=== PATIENT | female | born 1945 | race Two or more races ===

== ENCOUNTER 2016-07-06 06:34 | Inpatient (IN) | payer OTHER, MEDICAID ==
[2016-07-06] MEDS ORDERED: NS 1,000 ML IV ONE ×2 (06:52→23:10)
--- NOTE | 2016-07-06 07:07 | EDPHY ---
H & P Stated Complaint: diarrhea x 3 days Time Seen by Provider: 07/06/16 06:56 HPI/ROS: CHIEF COMPLAINT: Diarrhea x3 days, epigastric discomfort HISTORY OF PRESENT ILLNESS: The patient presents to the ED with a 3 day history of diarrhea. She does have a history of cirrhosis. She does take lactulose for encephalopathy. She states lactulose typically gives her 1 loose stool a day. She reports this pattern of diarrhea is much different with multiple frequent bouts of watery dark stool. She denies melena. She denies hematemesis. She denies vomiting. Patient does complain of moderate epigastric pain. Past surgical history is significant for appendicitis. The patient was recently admitted to the hospital for a upper GI bleed secondary to portal gastroscopy. The patient denies additional complaints of cough or congestion. She reports subjective fevers. REVIEW OF SYSTEMS: A comprehensive 10 point review of systems is otherwise negative aside from elements mentioned in the history of present illness. Source: Patient Exam Limitations: No limitations - Personal History Current Tetanus/Diphtheria Vaccine: Yes Tetanus Vaccine Date: 2014 - Medical/Surgical History Hx Asthma: No Hx Chronic Respiratory Disease: No Hx Diabetes: Yes Hx Cardiac Disease: Yes Hx Renal Disease: No Hx Cirrhosis: Yes Hx Alcoholism: No Hx HIV/AIDS: No Hx Splenectomy or Spleen Trauma: No Other PMH: HTN, disk surgeries, 2 hip surgeries, diabetes. cirrosis; anemia; UTIs. chronic pain - Social History Smoking Status: Never smoked - Physical Exam Exam: General Appearance: Obese female, no acute distress Eyes: Pupils equal and round no pallor or injection ENT, Mouth: Mucous membranes moist Respiratory: There are no retractions, lungs are clear to auscultation Cardiovascular: Regular rate and rhythm Gastrointestinal: Epigastric pain Rectal: Dark, semi melanotic stool Neurological: A&O, normal motor function, normal sensory exam, normal cranial nerves Skin: Warm and dry, no rashes Musculoskeletal: Neck is supple nontender Extremities: symmetrical, full range of motion Constitutional: Initial Vital Signs Temperature (C) 37.0 C 07/06/16 06:41 Heart Rate 105 H 07/06/16 06:41 Respiratory Rate 20 07/06/16 06:41 Blood Pressure 106/53 L 07/06/16 06:41 O2 Sat (%) 96 07/06/16 06:41 O2 Delivery Mode Room Air Allergies/Adverse Reactions: insulin regular [Insulin Regular] Allergy (Verified 07/06/16 06:40) TONGUE NUMBNESS Penicillins Allergy (Verified 07/06/16 06:40) Rash Home Medications: Medication Instructions Recorded glipiZIDE [Glipizide 10 MG (RX)] 10 mg PO DAILY18 11/02/11 Losartan Potassium [Cozaar] 100 mg PO DAILY 04/14/14 Pantoprazole Sodium [Protonix 40mg 40 mg PO BID #60 tab 04/17/14 (*)] Ferrous Sulfate [Ferrous Sulf 325 325 mg PO DAILY 08/13/15 MG (*)] Propranolol HCl [Inderal 10mg (*)] 10 mg PO BID 08/13/15 glipiZIDE [Glucotrol] 20 mg PO DAILYAC 08/13/15 Furosemide [Lasix 20 MG (*)] 20 mg PO DAILY #30 tab 02/25/16 Spironolactone [Aldactone 25 MG 25 mg PO DAILY #30 tab 02/25/16 (*)] Lactulose [Cephulac 20 gm/30 ml 20 gm PO DAILY 05/31/16 oral soln (*)] Simvastatin [Zocor] 80 mg PO DAILY18 05/31/16 Medical Decision Making ED Course/Re-evaluation: I reviewed the results of the patient's last hospitalization including the results of her endoscopy. The patient had an IV established. She received a L of normal saline. The patient did have an upper GI endoscopy done in the beginning of May which demonstrated diffuse gastritis as well as a single esophageal varcie which was treated with banding x2. The patient is noted to have an acute anemia with a hematocrit of 21.5. Her discharge hematocrit was closer to 27. Her rectal exam does demonstrate some melanotic stool. The patient is hemodynamically stable. The patient has been typed and crossed for 2 units of blood. Consultation is made with Dr. Palacio from Gastroenterology. The patient will be started on octreotide drip. The patient patient will be admitted to the step -down unit for urgent endoscopy, transfusion and an octreotide drip Consultation is made with Dr. Mitch Jimenez from the hospitalist service. Differential Diagnosis: Differential diagnosis considered includes upper GI bleed, lower GI bleed, critical anemia, hypovolemic shock, gastroenteritis, Critical Care Time: Critical care time exclusive of procedures and exclusive of the PA's time was 35 minutes, performed by myself, Ankit Walker MD. The patient presents to the emergency department with a critical anemia in the setting of a known varices will bleed. Emergent consultation was made with Gastroenterology as well as Internal Medicine. The patient will be admitted to the step-down unit for emergent endoscopy. The patient has been started on octreotide drip and stat blood products have been ordered. - Data Points Laboratory Results: Laboratory Results 07/06/16 07:20 07/06/16 07:20 07/06/16 07/06/16 07/06/16 10:15 08:45 07:55 WBC RBC Hgb Hct MCV MCH MCHC RDW Plt Count MPV Neut % (Auto) Lymph % (Auto) [place] % (Auto) Eos % (Auto) Baso % (Auto) Nucleat RBC Rel Count Absolute Neuts (auto) Absolute Lymphs (auto) Absolute Monos (auto) Absolute Eos (auto) Absolute Basos (auto) Absolute Nucleated RBC Immature Gran % Immature Gran # PT INR APTT Sodium Potassium Chloride Carbon Dioxide Anion Gap BUN Creatinine Estimated GFR Glucose Calcium Total Bilirubin Conjugated Bilirubin Unconjugated Bilirubin AST ALT Alkaline Phosphatase Total Protein Albumin Stool Occult Bld Scrn Cancelled C. difficile Tox (PCR) NEGATIVE (NEGATIVE) Patient ABO/Rh O POSITIVE Antibody Screen NEGATIVE Crossmatch IS Only See Detail 07/06/16 07:20 WBC 7.05 10^3/uL (3.80-9.50) RBC 2.25 L 10^6/uL (4.18-5.33) Hgb 7.0 L g/dL (12.6-16.3) Hct 21.2 L % (38.0-47.0) MCV 94.2 fL (81.5-99.8) MCH 31.1 pg (27.9-34.1) MCHC 33.0 g/dL (32.4-36.7) RDW 16.1 H % (11.5-15.2) Plt Count 123 L 10^3/uL (150-400) MPV 11.9 H fL (8.7-11.7) Neut % (Auto) 65.4 % (39.3-74.2) Lymph % (Auto) 24.5 % (15.0-45.0) [place] % (Auto) 7.9 % (4.5-13.0) Eos % (Auto) 1.4 % (0.6-7.6) Baso % (Auto) 0.4 % (0.3-1.7) Nucleat RBC Rel Count 0.0 % (0.0-0.2) Absolute Neuts (auto) 4.60 10^3/uL (1.70-6.50) Absolute Lymphs (auto) 1.73 10^3/uL (1.00-3.00) Absolute Monos (auto) 0.56 10^3/uL (0.30-0.80) Absolute Eos (auto) 0.10 10^3/uL (0.03-0.40) Absolute Basos (auto) 0.03 10^3/uL (0.02-0.10) Absolute Nucleated RBC 0.00 10^3/uL (0-0.01) Immature Gran % 0.4 % (0.0-1.1) Immature Gran # 0.03 10^3/uL (0.00-0.10) PT 16.5 H SEC (12.0-15.0) INR 1.33 H (0.83-1.16) APTT 26.1 SEC (23.0-38.0) Sodium 136 mEq/L (134-144) Potassium 5.7 H mEq/L (3.5-5.2) Chloride 104 mEq/L (97-110) Carbon Dioxide 21 L mEq/l (22-31) Anion Gap 11 mEq/L (8-16) BUN 60 H mg/dL (7-23) Creatinine 0.9 mg/dL (0.6-1.0) Estimated GFR > 60 Glucose 207 H mg/dL (70-100) Calcium 8.5 mg/dL (8.5-10.4) Total Bilirubin 1.9 H mg/dL (0.1-1.4) Conjugated Bilirubin 0.3 mg/dL (0.0-0.5) Unconjugated Bilirubin 1.6 H mg/dL (0.0-1.1) AST 34 IU/L (14-46) ALT 41 IU/L (9-52) Alkaline Phosphatase 270 H IU/L (38-126) Total Protein 5.9 L g/dL (6.3-8.2) Albumin 2.7 L g/dL (3.5-5.0) Stool Occult Bld Scrn C. difficile Tox (PCR) Patient ABO/Rh Antibody Screen Crossmatch IS Only Medications Given: Discontinued Medications Sodium Chloride (Ns) 1,000 mls @ 0 mls/hr IV ONCE ONE PRN Reason: Wide Open Stop: 07/06/16 06:53 Last Admin: 07/06/16 07:57 Dose: 1,000 mls Morphine Sulfate (Morphine) 2 mg IVP EDNOW ONE Stop: 07/06/16 08:33 Last Admin: 07/06/16 08:46 Dose: 2 mg Pantoprazole Sodium (Protonix) 40 mg IVP EDNOW ONE Stop: 07/06/16 10:59 Last Admin: 07/06/16 12:05 Dose: 40 mg Departure - Departure Disposition: [facility] Inpatient Acute Clinical Impression: Cirrhosis, Upper GI bleed, Anemia, Diarrhea Condition: Critical
[2016-07-06 07:40] LABS: % IMMATURE GRANULYOCYTES 0.4 % (0.0-1.1); ABSOLUTE IMMATURE GRANULOCYTES 0.03 10^3/uL (0.00-0.10); ADD DIFF? NO; ADD MORPH? NO; ADD SCAN? NO; ATYPICAL LYMPHOCYTE FLAG 0 (0-99); FRAGMENT RBC FLAG 0 (0-99); HEMATOCRIT 21.2 % (38.0-47.0); LEFT SHIFT FLG 0 (0-99); LIPEMIA HEMOLYSIS FLAG 80 (0-99); MEAN CELL HEMOGLOBIN 31.1 pg (27.9-34.1); MEAN CELL VOLUME 94.2 fL (81.5-99.8); MEAN PLATELET VOLUME 11.9 fL (8.7-11.7); PLATELET CLUMPS FLAG 10 (0-99); PLATELET COUNT 123 10^3/uL (150-400); RED BLOOD CELL COUNT 2.25 10^6/uL (4.18-5.33); RED CELL DISTRIBUTION WIDTH 16.1 % (11.5-15.2)
[2016-07-06 07:49] LABS: APTT 26.1 SEC (23.0-38.0); INR 1.33 (0.83-1.16); PROTIME(PATIENT) 16.5 SEC (12.0-15.0)
[2016-07-06 07:52] LABS: ALANINE AMINOTRANSFERASE 41 IU/L (9-52); ALBUMIN 2.7 g/dL (3.5-5.0); ALKALINE PHOSPHATASE 270 IU/L (38-126); ANION GAP 11 mEq/L (8-16); ASPARTATE AMINOTRANSFERASE 34 IU/L (14-46); BILIRUBIN,TOTAL 1.9 mg/dL (0.1-1.4); BILIRUBIN-CONJUGATED 0.3 mg/dL (0.0-0.5); BILIRUBIN-UNCONJUGATED 1.6 mg/dL (0.0-1.1); CALCIUM 8.5 mg/dL (8.5-10.4); CARBON DIOXIDE 21 mEq/l (22-31); CHLORIDE 104 mEq/L (97-110); CREATININE 0.9 mg/dL (0.6-1.0); GLOMERULAR FILTRATION RATE > 60; GLUCOSE 207 mg/dL (70-100); POTASSIUM 5.7 mEq/L (3.5-5.2); SODIUM 136 mEq/L (134-144); TOTAL PROTEIN 5.9 g/dL (6.3-8.2)
[2016-07-06] MEDS ORDERED: PANTOPRAZOLE SODIUM 40 MG VIAL IVP ONE (10:58)
[2016-07-06] MEDS ORDERED: OCTREOTIDE ACETATE 500 MCG in D5W 50 ML IV SCH (11:00)
[2016-07-06] MEDS ORDERED: ALTEPLASE 2 MG VIAL IVP PRN (11:07)
[2016-07-06] MEDS ORDERED: SUCCINYLCHOLINE CHLORIDE*ANESTHESIA ONLY*200 MG/10 ML SYR IVP ONE ×2 (14:41→15:06)
[2016-07-06] MEDS ORDERED: PHENYLEPHRINE HCL 100 MCG/ML SYR ONE (15:06)
--- NOTE | 2016-07-06 15:21 | GPN ---
[f rep st] PROCEDURE NOTE PROCEDURE: Esophagogastroduodenoscopy. INDICATION: Melena and posthemorrhagic anemia in a patient with known varices and cryptogenic cirrhosis, and history of peptic ulcer disease. PREOPERATIVE DIAGNOSIS: Rule out varicele bleed. POSTOP DIAGNOSES: 1. Trace varix in the esophagus, which is not a bleeding lesion, previous area of endoscopic variceal banding was noted. 2. Small gastric ulcerations in the antrum. 3. Portal hypertensive gastropathy. 4. Large superficial duodenal ulcerations, which are almost certainly the source of the gastrointestinal blood loss. No visible vessel or other stigmata for treatment. INFORMED CONSENT: I had a detailed discussion with the patient via lead electrician regarding the procedure, alternatives, benefits, and risks including bleeding, perforation, infection, risk of medication. Informed consent was signed and witnessed. COMPLICATIONS: None immediate. MEDICATIONS: General anesthesia as per Dr. Falcon PROCEDURE REPORT: After adequate general anesthesia, patient was moved into the left lateral decubitus position. The forward viewing upper endoscope was passed in the oropharynx and advanced under direct visualization down the esophagus. There was a small amount of blood in the oropharynx from intubation and a small moderate trauma. The proximal and midesophageal mucosa was normal. There were trace varices in the distal middle and distal third of the esophagus. A previous area of endoscopic banding was noted. There was no evidence of varicocele bleed. The endoscope was advanced into the stomach. Retroflex examination was performed. There were no gastric varices. The endoscope was un-retroflexed. There was portal hypertensive gastropathy in the distal body and antrum. There were 2 small antral ulcers that were without stigmata of active bleeding. The endoscope was advanced into the duodenal bulb. In the duodenal bulb and sweep were multiple shallow, large ulcerations. Photographs were obtained. There was no area of visible vessel or adherent clot. These were quite superficial and seemed to be healing already. I withdrew the endoscope back into the stomach, reexamined the stomach, reexamined the esophagus, and then advanced back into the duodenum to look at these areas again to make sure there was no bleeding. There was no bleeding during the exam. There was a small amount of heme in the stomach but otherwise , there was no blood loss. The endoscope was then completely withdrawn, confirming the above findings. The patient tolerated the procedure well and was transferred to recovery in satisfactory condition. IMPRESSION: 1. Trace varices, not source of bleeding. 2. Small antral gastric ulcers. 3. Portal hypertensive gastropathy with a tiny bit of blood in the stomach. 4. Large superficial duodenal ulcerations, almost certainly the location of the gastrointestinal bleed. RECOMMENDATIONS: 1. PPI IV b.i.d., can change to p.o. once she is tolerating p.o. well. 2. Clear liquid diet for now. 3. Serial H and Hs as per hospitalist. 4. Transfuse as per hospitalist. 5. The patient probably needs a stepdown bed for now if available. I expect that she will be in the hospital for another 24-48 hours pending her clinical course. 6. Will check H pylori antibody. If positive, will treat for eradication. 7. Patient will need long-term PPI therapy in order to decrease ulcer recurrence. 8. I will also inquire with my staff to see Xifaxan is on the Medicaid formulary. Xifaxan 550 mg p.o. b.i.d. would be a much preferred treatment to lactulose for encephalopathy. The patient tolerated it better and it is a better medication overall. If it is too expensive, will continue the lactulose. 9. Further recommendations to follow results of above and clinical course. Thank you for allowing me to participate in this patient's healthcare. Do not hesitate to call me with any questions. /[id number]/MODL MTDD
[2016-07-06] MEDS ORDERED: ONDANSETRON 4 MG/2 ML VIAL IVP PRN (16:16)
--- NOTE | 2016-07-06 16:19 | IR ---
Imaging-Guided Peripherally Inserted Central Catheter History: GI bleeding. Prophylactic Antibiotic: Cefazolin was not ordered and administered for antimicrobial prophylaxis be cause it was not medically necessary for this procedure. VTE Prophylaxis: There is not an order for VTE prophylaxis to be given within 24 hours after procedu re end time because it was not medically necessary for this procedure. Crosscutting Measure: Patient's current list of medications including all known prescriptions, over- the-counters, herbals, and vitamin/mineral/dietary supplements are reviewed. Medications' name, dosa ge, frequency, and route of administration are confirmed. Technique: Following informed consent, the right arm was prepped and draped in sterile fashion. 1% Xy locaine was used for local anesthetic. All elements of maximal sterile barrier technique including cap, mask, sterile gown, sterile gloves, large sterile sheet, hand hygiene, and 2% chlorhexidine for cutaneous antisepsis, followed. Ultrasound evaluation of potential access site was performed. After successfully identifying a patent vessel, ultrasound guidance was used to puncture the vein. A permanent recording was created for the patient's record. Ultrasound transducer was placed in sterile sleeve and used for real-time imaging guidance over steri le gel to enter the basilic vein. 0.018 measuring wire was passed centrally under fluoroscopic contro l. A skin estefania with scalpel blade was followed by removing the access needle. A 5 Tajik peel-away sh eath was followed by a 5 [place] double-lumen central catheter, trimmed to 41 cm length. The tip of t he catheter was positioned centrally and the guidewire removed. A single fluoroscopic spot image was obtained in inspiration. The hub of the catheter was fixed to the skin using a sterile StatLock adhes denise device, and a sterile dressing was applied. The catheter was irrigated. Findings: The tip of the central catheter terminates at the junction of the superior vena cava and th e right atrium. Fluoroscopy: 0.5 minutes, one images Impression: 5 [place] double lumen peripherally inserted central catheter is ready to use.
--- NOTE | 2016-07-06 16:25 | PDGENHP ---
History and Physical History and Physical: HISTORY AND PHYSICAL ADMISSION NOTE CC: Rectal bleeding with melenic stool HISTORY: This patient with known advanced cirrhosis and esophageal varices and portal gastropathy was here last month with significant GI bleeding requiring transfusions. She had a single esophageal varix that was felt to be moderate risk and was clipped. She was felt of blood from the portal gastropathy. She was otherwise treated conservatively and did well. Several days ago she started noticing darker stools and frequent loose stools with some bloating in the abdomen. There is no abdominal pain fever nausea or vomiting. She has had no changes in her medications. She is taking a beta arsalan chronically and has been taking that medicine. She denies chest pain anginal like symptoms shortness of breath lightheadedness stroke-like symptoms. She is not having bleeding or bruising in any other body part. ROS: Otherwise 10 system review of systems is performed and unrevealing PAST MEDICAL HISTORY: -Advanced cirrhosis, cryptogenic -upper GI bleed from portal gastropathy -esophageal varices status post banding -hepatic encephalopathy -chronic iron deficiency anemia -Diabetes mellitus type 2 -hysterectomy FAMILY MEDICAL HISTORY: She is not aware of any significant medical illnesses in her family SOCIAL HISTORY: No alcohol or tobacco use MEDICATIONS: These are reviewed by the pharmacist and reconciled in the electronic record and I have reviewed the list and ordered appropriate medicines. Most of her medicines are held at this time due to GI bleeding PHYSICAL EXAMINATION: Vital Signs: Stable without fever Extractor Puller: Sinus rhythm in the ER Examination: General: alert, oriented, good mentation, relaxed Skin: warm, dry, good color, no rash HEENT: normal Neck: no mass or jvd Resps: relaxed Lungs: clear breath sounds Heart: regular, no murmur Abdomen: soft, nondistended, nontender, +BS, no mass Upper Extremities: normal Lower Extremities: no edema, warm No Bleeding or bruising Neurologic: normal speech/language, normal marketing project coordinator, no focal weakness IV site: looks normal LABORATORY DATA: Hemoglobin 21 down from most recent 27 last month despite ongoing iron therapy ASSESSMENT: DIAGNOSES: # UPPER GI BLEED # RECENT UP UPPER GI BLEED FROM PORTAL GASTROPATHY, A SINGLE VARIX WAS NOTED IN THE ESOPHAGUS THAT AT THAT TIME WAS ONLY MODERATE RISK AND WAS CLIPPED # ACUTE POST HEMORRHAGIC ANEMIA ON TOP OF CHRONIC IRON DEFICIENCY ANEMIA # CRYPTOGENIC CIRRHOSIS, ADVANCED #TYPE 2 DIABETES MELLITUS ON ORAL THERAPY PLANS: -The patient will be going to the endoscopy suite today with Dr. Caba to assess the cause of bleeding and which treatments are indicated, as well as the risk for ongoing bleeding -Packed red blood cells been ordered for transfusion in the ER which is appropriate given her level of anemia and ongoing bleeding -She is started on octreotide drip and proton pump inhibitor drip at this time -NPO -follow hemodynamics and hemoglobin very closely -DVT prophylaxis will be mechanical only due to bleeding I have reviewed the patient's case in detail with Dr. Tyrell Walker and Dr. Mick Palacio I have reviewed the patient's past medical records as part of this assessment, including
[2016-07-06] MEDS ORDERED: NS 1,000 ML IV SCH (16:30)
--- NOTE | 2016-07-06 17:22 | POSTOPPROG ---
Post Op Note Date of Operation: 07/06/16 Surgeon: Mick Palacio Anesthesiologist: Ezekiel Anesthesia: GET(General Endotracheal) Pre-op Diagnosis: ugi bleed hx esoph varices Post-op Diagnosis: trace varices not bleeding, antral ulcefs, DU's whihc are bleeding source b Indication: melena, post hemorrhagic anemia Procedure: EGD Findings: trace varices, antral ulcers duodenal ulcers Inf/Abcess present in the surg proc area at time of surgery?: No EBL: Minimal (few ml) Complications: none immediate Specimen(s): none
--- NOTE | 2016-07-06 17:24 | SOAPPROG ---
SOARABELLA Progress Note Assessment/Plan: Assessment:Plan: see full dictated EGD trace varices antral ulcers large superficial duodenal ulcers multiple -0 i think these are bleeding sites NO ACTIVE BLEEDING on exam PPI BID stop octreotide post this IV bag check H/H, serial H/H clear liquid diet abx given cirrhosis and UGI bleed 07/06/16 17:22 Objective: Vital Signs Temp Pulse Resp BP Pulse Ox 37.1 C 100 23 H 102/86 H 100 07/06/16 14:52 07/06/16 17:19 07/06/16 17:19 07/06/16 17:19 07/06/16 17:19 07/05/16 07/06/16 07/07/16 05:59 05:59 05:59 Intake Total 1600 Output Total 0 Balance 1600 PT 16.5 SEC (12.0-15.0) H 07/06/16 07:20 INR 1.33 (0.83-1.16) H 07/06/16 07:20 ICD10 Worksheet Patient Problems: Problems Problem Status Diagnosed Altered mental status Acute Anemia Acute Cirrhosis Acute Dehydration Acute Diabetes Acute Diarrhea Acute Encephalopathy Acute Hematemesis Acute Hepatic encephalopathy Acute Upper GI bleed Acute
[2016-07-06] MEDS: glipiZIDE 10 MG TAB PO SCH (17:52)
[2016-07-06] MEDS: CIPROFLOXACIN 500 MG TAB PO SCH ×2 (17:54→20:50)
[2016-07-06 18:03] LABS: HEMATOCRIT 21.8 % (38.0-47.0); HEMOGLOBIN 7.1 g/dL (12.6-16.3)
--- NOTE | 2016-07-06 20:17 | GCON ---
[f rep st] CONSULTATION REQUESTING PHYSICIAN: Maik Walker M.D. INDICATION FOR CONSULTATION: Melena, posthemorrhagic anemia, elevated BUN and creatinine consistent with upper GI bleed. HPI: Mrs. Molina is a pleasant 70-year-old female with a past medical history significant for cryptogenic cirrhosis, hepatic encephalopathy, iron deficiency anemia with small bowel ectasias, portal gastropathy, type 2 diabetes, hypertension, pancytopenia, who is noted to have an esophageal varix on EGD on June 01. She was in usual state of health at home until 3 days ago when she started to have some diarrhea. Today, the diarrhea became very black, which she recognized as an upper GI bleed. It was a little dark before, but not melenic. She does take iron. She thought it might be related to the iron. She presented to the emergency room and was noted to have melenic stools , elevated BUN/creatinine ratio and post hemorrhagic anemia. She is being admitted for presumed upper GI bleed. I am called to help, evaluate and treat in that regard. She denies any chest pain. She has some mild nausea. Had some pain with the loose stools this morning. Crampy lower abdominal pain. Denies diaphoresis, dysphagia or early satiety. She is compliant with her medications. She is not taking any aspirin or anti-inflammatory drugs. PAST MEDICAL HISTORY: Cryptogenic cirrhosis, encephalopathy, cytopenias. She never had any ascites noted on ultrasounds. Endoscopy in May 2016 revealed esophageal varix. In June 2015, she had only trace varices. She did have portal hypertensive gastropathy and capsule endoscopy reportedly showed vascular ectasias in her small bowel. She had a history of hepatic encephalopathy, iron deficiency anemia, portal gastropathy, type 2 diabetes, hypertension, pancytopenia. SURGERIES: Include multiple hernia repairs, up to 7 and hip repair x2. MEDICATIONS: At home include glipizide 10 mg daily, Losartan 100 mg daily, Protonix 40 mg , propranolol 10 mg twice daily, glipizide 20 mg daily, iron 325 mg daily, Lasix 20 mg daily, spironolactone 25 mg daily, Zocor 80 mg daily, lactulose 20 mg daily. In hospital, her only medications thus far, she received IV Protonix in the ER, morphine in the ER, and octreotide drip is going. ALLERGIES: To insulin and penicillin. Penicillin causes facial swelling and insulin causes fainting, probably hypoglycemia. PAST SOCIAL HISTORY: She does not smoke, does not drink. FAMILY HISTORY: Negative for liver disease. No colon cancer. REVIEW OF SYSTEMS: A complete 10 review of systems was done and is negative other than noted in the HPI. PHYSICAL EXAM: Well-developed, well-nourished, elderly female sitting in her bed. No acute distress. Blood pressure is 100/49, pulse is 110, respirations are 16, she is 96% on room air, temperature is 36.9. EYES: Mild icterus. JUVE. EOMI. MOUTH: No lesions. NECK: Supple. BACK: No spine tenderness. No CVA tenderness. LUNGS: Clear. CARDIAC: S1, S2, tachycardic, regular rhythm. No murmurs, rubs appreciated. ABDOMEN: Bowel sounds are normal in pitch and frequency, soft, nontender. Difficult to assess hepatosplenomegaly due to body habitus. EXTREMITIES: No cyanosis, clubbing, or edema. NEUROLOGIC : Cranial nerves intact. Nonfocal. SKIN: No rashes. LABORATORY DATA: From today at 7:20 a.m., sodium 136, potassium 5.7, chloride 104, bicarb 21, BUN 60, creatinine 0.9, glucose 207, calcium 8.5, total protein 1.9, AST 34, ALT 41, alkaline phosphatase 270, total protein 5.9, albumin 2.7. ProTime 16.5, INR 1.33, PTT 26.1. WBC 7.05, hemoglobin 7.0, hematocrit 21.2, platelet count 123. C. diff. is negative. Previous hemoglobin hematocrit from June 03 was 8.6 and 26. Prior to her bleed in January was 8.7 and 27.8. BUN on June 03 was 16, creatinine 0.7. EGD performed on June 01, 2016 revealed a single column of 2+ varices, a slight red farshad sign and 1+ varix at the GE junction. The 3 columns compressed with insufflation. No active bleeding. Midesophageal varix with signs of likely recent bleeding s/p bands x2. Diffuse portal hypertensive gastropathy that was oozing, likely contributing to her bleeding, although this is not amenable to endoscopic therapy. A colonoscopy on April 14, 2014 was normal with nonbleeding hemorrhoids. An EGD on April 14, 2014 showed 1 cm clean based antral ulcers. Biopsies were positive for H. pylori. ASSESSMENT: Upper gastrointestinal bleed with melena, decreased hemoglobin and hematocrit, elevated BUN and creatinine in a patient with cryptogenic cirrhosis and known varices as well as portal hypertensive gastropathy. RECOMMENDATIONS: 1. Transfuse PRBCs as per hospitalist. 2. Octreotide drip was already done in the emergency room. 3. Urgent EGD with anesthesia for presumed upper GI bleed in this patient with possible varicocele bleeding. 4. Pending results of EGD may cover for 7 days with antibiotics as patients with cirrhosis and upper GI bleeds have increased risk of infections, not only just SBP. 5. The patient will need correction beta-arsalan therapy. 6. Treatment of hepatic encephalopathy is much better with Xifaxan 550 mg p.o. twice daily. If it is too expensive or not available on formulary, then lactulose can be continued. 7. Further recommendations to follow results of above and clinical course. Given the patient's multiple medical issues, cirrhosis, acute GI blood loss, this will be a higher risk procedure than normal. Anesthesia will be present to administer the sedation. They may choose to intubate the patient secondary to the upper GI bleed. Thank you for allowing me to participate in this patient's healthcare. Do not hesitate to call me with questions. /[id number]/MODL MTDD
[2016-07-06] MEDS: PANTOPRAZOLE SODIUM 40 MG in NS 100 ML IV SCH (20:55)
[2016-07-06] MEDS ORDERED: CEPACOL LOZENGE PO PRN (21:12)
[2016-07-06 22:45] LABS: HEMATOCRIT 18.7 % (38.0-47.0)
[2016-07-06 22:51] LABS: HEMOGLOBIN 6.3 g/dL (12.6-16.3)
[2016-07-07 02:25] LABS: % IMMATURE GRANULYOCYTES 0.3 % (0.0-1.1); ABSOLUTE IMMATURE GRANULOCYTES 0.01 10^3/uL (0.00-0.10); ADD DIFF? NO; ADD MORPH? NO; ADD SCAN? NO; ATYPICAL LYMPHOCYTE FLAG 20 (0-99); FRAGMENT RBC FLAG 0 (0-99); HEMATOCRIT 22.7 % (38.0-47.0); HEMOGLOBIN 7.6 g/dL (12.6-16.3); LEFT SHIFT FLG 0 (0-99); LIPEMIA HEMOLYSIS FLAG 80 (0-99); MEAN CELL HEMOGLOBIN 31.1 pg (27.9-34.1); MEAN CELL HEMOGLOBIN CONCENTR. 33.5 g/dL (32.4-36.7); MEAN PLATELET VOLUME 11.2 fL (8.7-11.7); PLATELET CLUMPS FLAG 10 (0-99); PLATELET COUNT 73 10^3/uL (150-400); RED BLOOD CELL COUNT 2.44 10^6/uL (4.18-5.33); RED CELL DISTRIBUTION WIDTH 15.9 % (11.5-15.2)
[2016-07-07 02:34] LABS: INR 1.44 (0.83-1.16); PROTIME(PATIENT) 17.5 SEC (12.0-15.0)
[2016-07-07 02:35] LABS: ANION GAP 6 mEq/L (8-16); CALCIUM 7.5 mg/dL (8.5-10.4); CARBON DIOXIDE 21 mEq/l (22-31); CHLORIDE 110 mEq/L (97-110); CREATININE 0.8 mg/dL (0.6-1.0); GLOMERULAR FILTRATION RATE > 60; GLUCOSE 184 mg/dL (70-100); POTASSIUM 5.1 mEq/L (3.5-5.2); SODIUM 137 mEq/L (134-144)
--- NOTE | 2016-07-07 07:48 | SOAPPROG ---
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 Hb 7.0 -- 2 units - Hb 7.1 -- Hb 6.3 -- 1 unit -- Hb 7.6 7) Dispo - if stable, can go to floor, I might like to watch another night in hospital pending her course today 8) ID - pt's with cirrhosis and UGI bleed from any source have high risk of infection (UTI, SBP, Resp infections) and should get one week of abx, since allergic to PCN on PO Cipro 07/07/16 07:51 Subjective: CC- UGI bleed from DU's she is doing well this am, no n/v, no melena, no pain did need another PRBC overnight, I think from equilibration as she had an acute GI bleed Objective: Vital Signs Temp Pulse Resp BP Pulse Ox 36.9 C 80 11 L 91/33 L 100 07/07/16 01:42 07/07/16 05:40 07/07/16 05:40 07/07/16 05:40 07/07/16 05:40 Laboratory Results 07/07/16 02:10 07/07/16 02:10 07/06/16 07/07/16 07/08/16 05:59 05:59 05:59 Intake Total 4525 Output Total 650 350 Balance 3875 -350 PT 17.5 SEC (12.0-15.0) H 07/07/16 02:10 INR 1.44 (0.83-1.16) H 07/07/16 02:10 A+Ox3 CTA S1S2, RRR +BS, soft NT Laboratory Tests 07/06/16 07/06/16 07/06/16 07:20 17:50 22:35 Hgb 7.0 L 7.1 L 6.3 L Hct 21.2 L 21.8 L 18.7 L PT INR 07/07/16 02:10 Hgb 7.6 L Hct 22.7 L PT 17.5 H INR 1.44 H Laboratory Tests 07/06/16 07/07/16 07:20 02:10 BUN 60 H 45 H Creatinine 0.9 0.8 ICD10 Worksheet Patient Problems: Problems Problem Status Diagnosed Altered mental status Acute Anemia Acute Cirrhosis Acute Dehydration Acute Diabetes Acute Diarrhea Acute Encephalopathy Acute Hematemesis Acute Hepatic encephalopathy Acute Upper GI bleed Acute
[2016-07-07] MEDS ORDERED: LACTULOSE 20 GM/30 ML UDCUP PO SCH (09:00)
[2016-07-07] MEDS: PANTOPRAZOLE SODIUM 40 MG in NS 100 ML IV SCH ×2 (09:41→19:59)
[2016-07-07] MEDS: RIFAXIMIN 550 MG TAB PO SCH ×2 (09:41→19:58)
[2016-07-07] MEDS: glipiZIDE 10 MG TAB PO SCH ×2 (10:00→18:10)
[2016-07-07] MEDS: CIPROFLOXACIN 500 MG TAB PO SCH ×2 (10:10→19:59)
--- NOTE | 2016-07-07 12:01 | HOSPPROG ---
Hospitalist Progress Note Assessment/Plan: DIAGNOSIS: # ACUTE UPPER GI BLEED # LARGE DUODENAL ULCERS # ACUTE POST HEMORRHAGIC ANEMIA, S/P TRANSFUSION (3 UNITS), ON CHRONIC FE DEFIC ANEMIA # S/P CLIPPING OF MOD ESOPH VARIX LAST MONTH, CURRENTLY LOW RISK # ADVANCED CIRRHOSIS # DIABETES MELLITUS, STABLE I reviewed in detail with Dr Palacio today. She does not have evidence of current active bleed today, but remains severely anemic after 3 U rbc. Will need to watch here for at least another day, and will need close outpt f/u PLANS: -continue PPI, indefintely -will give IV iron now, continue po at home -continue prophylactic meds for liver dz -no anticoag at present due to bleed SUBJECTIVE: No abdominal pain, nausea, vomiting Has noticed no further bleeding No angina or shortness of breath or stroke-like symptoms OBJECTIVE Vitals reviewed: Blood pressure is a bit borderline but pulse and respiratory rate are normal, no fever residential monitor: On my review there is sinus rhythm without arrhythmia Exam: alert oriented skin warm dry color ok resps not labored lungs clear BSs heart regular abd soft nondistended nontender, bowel sounds present limbs warm, no edema iv site ok Laboratory data: Remains severely anemic despite 3 units of transfused red cells hemoglobin 7 though not decreasing further Objective: Vital Signs Temp Pulse Resp BP Pulse Ox 36.8 C 87 17 96/42 L 96 07/07/16 07:58 07/07/16 07:58 07/07/16 07:58 07/07/16 07:58 07/07/16 07:58 Laboratory Results 07/07/16 02:10 07/07/16 02:10 07/06/16 07/07/16 07/08/16 06:59 06:59 06:59 Intake Total 4525 Output Total 1000 300 Balance 3525 -300 PT 17.5 SEC (12.0-15.0) H 07/07/16 02:10 INR 1.44 (0.83-1.16) H 07/07/16 02:10 ICD10 Worksheet Patient Problems: Problems Problem Status Diagnosed Altered mental status Acute Anemia Acute Cirrhosis Acute Dehydration Acute Diabetes Acute Diarrhea Acute Encephalopathy Acute Hematemesis Acute Hepatic encephalopathy Acute Upper GI bleed Acute
[2016-07-07] MEDS: SODIUM FERRIC GLUCONAT/SUCROSE 125 MG in NS 100 ML IV SCH (12:15)
[2016-07-07 12:27] LABS: HEMATOCRIT 23.4 % (38.0-47.0); HEMOGLOBIN 7.7 g/dL (12.6-16.3)
[2016-07-08 05:41] LABS: % IMMATURE GRANULYOCYTES 0.5 % (0.0-1.1); ABSOLUTE IMMATURE GRANULOCYTES 0.01 10^3/uL (0.00-0.10); ADD DIFF? NO; ADD MORPH? NO; ADD SCAN? NO; ATYPICAL LYMPHOCYTE FLAG 0 (0-99); FRAGMENT RBC FLAG 0 (0-99); HEMATOCRIT 21.4 % (38.0-47.0); HEMOGLOBIN 7.2 g/dL (12.6-16.3); LEFT SHIFT FLG 0 (0-99); LIPEMIA HEMOLYSIS FLAG 80 (0-99); MEAN CELL HEMOGLOBIN CONCENTR. 33.6 g/dL (32.4-36.7); MEAN CELL VOLUME 92.2 fL (81.5-99.8); MEAN PLATELET VOLUME 10.8 fL (8.7-11.7); PLATELET CLUMPS FLAG 0 (0-99); PLATELET COUNT 67 10^3/uL (150-400); RED BLOOD CELL COUNT 2.32 10^6/uL (4.18-5.33); RED CELL DISTRIBUTION WIDTH 16.3 % (11.5-15.2)
[2016-07-08 08:10] VITALS: RESP 18
[2016-07-08] MEDS: CIPROFLOXACIN 500 MG TAB PO SCH (09:15)
[2016-07-08] MEDS: RIFAXIMIN 550 MG TAB PO SCH (09:15)
[2016-07-08] MEDS: SODIUM FERRIC GLUCONAT/SUCROSE 125 MG in NS 100 ML IV SCH (09:16)
[2016-07-08] MEDS: glipiZIDE 10 MG TAB PO SCH (10:23)
[2016-07-08] MEDS ORDERED: PANTOPRAZOLE SODIUM 40 MG TAB PO SCH (11:30)
[2016-07-08] MEDS: PANTOPRAZOLE SODIUM 40 MG in NS 100 ML IV SCH (11:32)
--- NOTE | 2016-07-08 11:47 | SOAPPROG ---
[facility] Progress Note Assessment/Plan: Assessment: 1. GI BLEED - secondary to ulcer - on PPI - no further bleeding, but H/H continue to be low - tolerating po, and hopeful yo go home soon 2. ESLD - complicated by varices, volume overload, and encephalopathy - no evidence of decompensation currently Plan: 1. GI BLEED - ok to change to po ppi - check stool h.pylori ag to confirm ulcers not infection related - follow H/H - advance diet - consider dc home today or tomorrow, pending course of H/H and patient's symptoms - may take some time for H/H to improve - finish Fe replacement - would continue PPI PO BID x 12 weeks, then QD lifelong 2. ESLD - ok to resume outpt ESLD meds - will need outpt f/u (I will arrange) - will sign off, call with questions 07/08/16 11:44 Subjective: CC: no further melena S: feels hungry feels strong enough to go home no nausea no vomiting Objective: Vital Signs Temp Pulse Resp BP Pulse Ox 36.8 C 82 18 126/52 H 99 07/08/16 08:00 07/08/16 08:00 07/08/16 08:00 07/08/16 08:00 07/08/16 08:00 Laboratory Results 07/08/16 05:30 07/07/16 02:10 07/07/16 07/08/16 07/09/16 05:59 05:59 05:59 Intake Total 4525 3462 Output Total 650 2775 Balance 3875 687 PT 17.5 SEC (12.0-15.0) H 07/07/16 02:10 INR 1.44 (0.83-1.16) H 07/07/16 02:10 Laboratory Tests 07/06/16 07/06/16 07/06/16 07:20 07:55 17:50 WBC RBC Hgb 7.0 L 7.1 L Hct 21.2 L 21.8 L PT INR C. difficile Tox (PCR) NEGATIVE 07/06/16 07/07/16 07/07/16 22:35 02:10 12:00 WBC 3.82 RBC 2.44 L Hgb 6.3 L 7.6 L 7.7 L Hct 18.7 L 22.7 L 23.4 L PT 17.5 H INR 1.44 H C. difficile Tox (PCR) 07/08/16 05:30 WBC 2.08 L RBC 2.32 L Hgb 7.2 L Hct 21.4 L PT INR C. difficile Tox (PCR) Physical Exam - Physical Exam General Appearance: alert, no apparent distress EENT: PERRL/EOMI Respiratory: lungs clear Cardiac/Chest: normal peripheral pulses Abdomen: normal bowel sounds Skin: normal color Neuro/Psych: no motor/sensory deficits ICD10 Worksheet Patient Problems: Problems Problem Status Diagnosed Altered mental status Acute Anemia Acute Cirrhosis Acute Dehydration Acute Diabetes Acute Diarrhea Acute Encephalopathy Acute Hematemesis Acute Hepatic encephalopathy Acute Upper GI bleed Acute
[2016-07-08 13:38] LABS: HEMATOCRIT 24.6 % (38.0-47.0)
[2016-07-08 17:02] VITALS: BP 127/50; PULSE 86; TEMP 98.6; O2SAT 98
--- NOTE | 2016-07-08 17:17 | PDDCSUM ---
Discharge Summary Discharge Summary: DISCHARGE SUMMARY NOTE DISCHARGE DIAGNOSES: -ACUTE UPPER GI BLEED -LARGE DUODENAL ULCERS CAUSE OF UPPER GI BLEED -SEVERE POST HEMORRHAGIC ANEMIA, REQUIRING TRANSFUSION OF 3 UNITS OF PACKED RED BLOOD CELLS -PREVIOUSLY NOTED ESOPHAGEAL VARIX STATUS POST PREVIOUS CLIPPING IN STABLE CONDITION, LOW RISK AT THIS TIME -ADVANCED CIRRHOSIS WITH VARICES, ASCITES -PRE-EXISTING CHRONIC IRON DEFICIENCY ANEMIA CONSULTANTS: DR. NEREIDA CABRAL PROCEDURES: ESOPHAGOGASTRODUODENOSCOPY HOSPITAL COURSE SUMMARY: This patient came into the hospital with acute upper GI bleeding with melenic stools and lightheadedness and was found to have a hemoglobin of 6. She has known ascites with an esophageal varices and portal gastropathy. She was treated here with a GI bleed from portal gastropathy last months and her 1 varix was banded at that time. At this time on endoscopy showed large duodenal ulcers which were felt to be the cause of her bleeding. Her esophageal varix looks stable. She remained hemodynamically stable after initial resuscitation. She did receive 3 units of red cells in transfusion without complications. At this time she is to be continued on iron replacement therapy, proton pump inhibitor therapy twice daily, diuretics and lactulose. She is stable for discharge to home. She has been eating well walking in the hallway has no more bleeding no abdominal pain no fevers stable vital signs normal abdominal exam MEDICATION CHANGES: Addition of iron therapy FOLLOW-UP PLAN: DR. MACHUCA IS ARRANGING FOLLOW-UP AT THE [facility] FOR HER Greater than 35 minutes bedside and care coordination time today
== END 2016-07-08 17:57 | disposition home or self-care (01) | DRG 378 ==
LOC: F2N 16:14 → F1N 07-08 08:41
PROVIDERS: ADMIT Internal Medicine; ATTEND Internal Medicine
PROC: 02HV33Z Insertion of Infusion Device into Superior Vena Cava, Percutaneous Approach (ICD-10-PCS; 2016-07-06)
PROC: 30233N1 Transfusion of Nonautologous Red Blood Cells into Peripheral Vein, Percutaneous Approach (ICD-10-PCS; 2016-07-06)
PROC: 0DJ08ZZ Inspection of Upper Intestinal Tract, Via Natural or Artificial Opening Endoscopic (ICD-10-PCS; principal; 2016-07-06 14:00)
DX: K26.4 Chronic or unspecified duodenal ulcer with hemorrhage (principal); D62 Acute posthemorrhagic anemia; D50.9 Iron deficiency anemia, unspecified; K25.9 Gastric ulcer, unspecified as acute or chronic, without hemorrhage or perforation; K31.89 Other diseases of stomach and duodenum; K72.90 Hepatic failure, unspecified without coma; K74.60 Unspecified cirrhosis of liver; I10 Essential (primary) hypertension; E11.9 Type 2 diabetes mellitus without complications; Z87.440 Personal history of urinary (tract) infections
CPT/HCPCS: 96374; 97161-GP; C1751; G8978-GP-CI; G8979-GP-CI; G8980-GP-CI; J0171; J0330; J2353; J2370; J2916; P9016

== ENCOUNTER → 2016-10-09 | Outpatient (CLI) | payer OTHER, MEDICAID ==
[~2016-10-09] MED LIST: IOPAMIDOL (ISOVUE-300) 100 ML BTL IV ONE
[2016-10-09 11:04] LABS: CREATININE 0.8 mg/dL (0.6-1.0); GLOMERULAR FILTRATION RATE > 60
== END ==
LOC: FIMAGING 10:09
PROVIDERS: ATTEND Physician Assistant
DX: K74.69 Other cirrhosis of liver (principal); K76.6 Portal hypertension; K80.20 Calculus of gallbladder without cholecystitis without obstruction; S32.040A Wedge compression fracture of fourth lumbar vertebra, initial encounter for closed fracture
CPT/HCPCS: 74170; Q9967

== ENCOUNTER 2016-10-25 19:46 | Emergency (ER) | payer OTHER, MEDICAID ==
[2016-10-25 19:54] VITALS: BP 138/48
--- NOTE | 2016-10-25 20:15 | EDPHY ---
H & P Stated Complaint: hyperglycemia - Personal History Current Tetanus/Diphtheria Vaccine: Yes Current Tetanus Diphtheria and Acellular Pertussis (TDAP): Yes Tetanus Vaccine Date: 2014 - Medical/Surgical History Hx Asthma: No Hx Chronic Respiratory Disease: No Hx Diabetes: Yes Hx Cardiac Disease: Yes Hx Renal Disease: No Hx Cirrhosis: Yes Hx Alcoholism: No Hx HIV/AIDS: No Hx Splenectomy or Spleen Trauma: No Other PMH: HTN, disk surgeries, 2 hip surgeries, diabetes. cirrosis; anemia; UTIs. chronic pain - Social History Smoking Status: Never smoked Time Seen by Provider: 10/25/16 19:58 HPI/ROS: Chief Complaint: High blood sugar HPI: 71-year-old female with a history of type 2 diabetes on glipizide. Lantus. Patient took her blood sugar this morning at 9:30 a.m. was 313. This afternoon at 4:50 p.m. it read high. At 6:30 p.m. at read 559. Patient called her primary care physician at [facility] was told to come the emergency department for blood sugar control. 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 Family states that the patient is not consistent about when she takes her Lantus. Yesterday she took it a 30 morning. She did not take until 530 this afternoon. Denies any recent illness. No fevers or chills. No urinary symptoms. No nausea or vomiting. No chest pain or shortness of breath. ROS: 10 point Review of Systems is negative except as noted in the HPI. PMH: Diabetes Social History: No smoking, no alcohol, no recreational drug use Family History: non-contributory Physical Exam: Gen: Awake, Alert, No Distress HEENT: Nose: no rhinorrhea Eyes: PERRLA, EOMI Mouth: Moist mucosa Neck: Supple, no JVD Chest: nontender, lungs clear to auscultation Heart: S1, S2 normal, no murmur Abd: Soft, non-tender, no guarding Back: no CVA tenderness, no midline tenderness Ext: no edema, non-tender Skin: no rash Neuro: CN II-XII intact, Sensation grossly intact, Strength 5/5 in bilateral upper and lower extremities (Mick Roberts) Constitutional: Initial Vital Signs Temperature (C) 36.6 C 10/25/16 19:52 Heart Rate 97 10/25/16 19:52 Respiratory Rate 16 10/25/16 19:52 Blood Pressure 138/48 H 10/25/16 19:52 O2 Sat (%) 100 10/25/16 19:52 O2 Delivery Mode Room Air Allergies/Adverse Reactions: insulin regular [Insulin Regular] Allergy (Verified 07/06/16 06:40) TONGUE NUMBNESS Penicillins Allergy (Verified 07/06/16 06:40) Rash Home Medications: Medication Instructions Recorded glipiZIDE [Glipizide 10 MG (RX)] 10 mg PO DAILY18 11/02/11 Losartan Potassium [Cozaar] 100 mg PO DAILY 04/14/14 Ferrous Sulfate [Ferrous Sulf 325 325 mg PO DAILY 08/13/15 MG (*)] Propranolol HCl [Inderal 10mg (*)] 10 mg PO BID 08/13/15 glipiZIDE [Glucotrol] 20 mg PO DAILYAC 08/13/15 Furosemide [Lasix 20 MG (*)] 20 mg PO DAILY #30 tab 02/25/16 Spironolactone [Aldactone 25 MG 25 mg PO DAILY #30 tab 02/25/16 (*)] Lactulose [Cephulac 20 gm/30 ml 20 gm PO DAILY 05/31/16 oral soln (*)] Simvastatin [Zocor] 80 mg PO DAILY18 05/31/16 Ferrous Sulfate 325 mg PO DAILY #60 tablet. 07/08/16 Pantoprazole Sodium [Protonix 40mg 40 mg PO BID #60 tab 07/08/16 (*)] Medical Decision Making ED Course/Re-evaluation: 11:25 p.m.- I received sign-out on this patient by Dr. Roberts at change of shift at approximately 11:00 p.m.. She has finished her 2 L bolus of IV fluids. Her repeat blood sugar is 377 down from the high 500s. She is feeling well, and denies any complaints. There are no signs or symptoms of DKA. I feel she can be discharged safely from the emergency room. I have stressed the importance of taking her Lantus regularly. She will be discharged with her son. I have asked that she follow up with [facility] in the next 1-2 days. ( Flory Romo) - Data Points Laboratory Results: Laboratory Results 10/25/16 20:10 10/25/16 10/25/16 10/25/16 23:04 21:05 20:10 POC Hgb 9.9 gm/dL L gm/dL (12.3-15.9) POC Hct 29 % L % (35.5-47.5) POC Sodium 142 mEq/L mEq/L (134-144) Sodium 133 mEq/L L mEq/L (134-144) POC Potassium 4.3 mEq/L mEq/L (3.3-5.0) Potassium 4.7 mEq/L mEq/L (3.5-5.2) POC Chloride 108 mEq/L mEq/L (96-108) Chloride 104 mEq/L mEq/L (97-110) Carbon Dioxide 21 mEq/l L mEq/l (22-31) Anion Gap 8 mEq/L mEq/L (8-16) POC BUN 19 mg/dL mg/dL (7-23) BUN 21 mg/dL mg/dL (7-23) Creatinine 0.7 mg/dL mg/dL (0.6-1.0) POC Creatinine 0.6 mg/dL mg/dL (0.6-1.2) Estimated GFR > 60 Glucose 589 mg/dL H* mg/dL (70-100) POC Glucose 377 mg/dL H mg/dL (70-100) Calcium 9.1 mg/dL mg/dL (8.5-10.4) Urine Color YELLOW Urine Appearance CLEAR Urine pH 6.0 (5.0-7.5) Ur Specific [place] 1.026 (1.002-1.030) Urine Protein NEGATIVE (NEGATIVE) Urine Ketones NEGATIVE (NEGATIVE) Urine Blood 2+ H (NEGATIVE) Urine Nitrate NEGATIVE (NEGATIVE) Urine Bilirubin NEGATIVE (NEGATIVE) Urine Urobilinogen NEGATIVE EU EU (0.2-1.0) Ur Leukocyte Esterase NEGATIVE (NEGATIVE) Urine RBC 5-10 /hpf H /hpf (0-3) Urine WBC 1-3 /hpf /hpf (0-3) Ur Epithelial Cells TRACE /lpf /lpf (NONE-1+) Urine Bacteria TRACE /hpf H /hpf (NONE SEEN) Urine Glucose 3+ H (NEGATIVE) Medications Given: Discontinued Medications Sodium Chloride (Ns) 1,000 mls @ 0 mls/hr IV ONCE ONE PRN Reason: Wide Open Stop: 10/25/16 20:18 Last Admin: 10/25/16 20:18 Dose: 1,000 mls Sodium Chloride (Ns) 1,000 mls @ 0 mls/hr IV ONCE ONE PRN Reason: Wide Open Stop: 10/25/16 21:18 Last Admin: 10/25/16 22:32 Dose: 1,000 mls Point of Care Test Results: 10/25/16 23:04 POC Sodium 142 POC Potassium 4.3 POC Chloride 108 POC BUN 19 POC Creatinine 0.6 POC Glucose 377 H Departure - Departure Disposition: Home, Routine, Self-Care Clinical Impression: Dehydration, Hyperglycemia Condition: Good Instructions: Managing Diabetes During Sick Days (ED), Diabetic Hyperglycemia ( ED) Additional Instructions: Make sure to take your insulin injection at the same time every day. Drink plenty of fluids. Follow up with her primary care doctor in 1-2 days for re-evaluation. Return emergency department for fevers, chills, cough, nausea, vomiting, high blood sugars which are not coming down, or any other concerns. Referrals: Edith Clark MD [Primary Care Provider] - As per Instructions Print Language: Hebrew
[2016-10-25] MEDS ORDERED: NS 1,000 ML IV ONE ×2 (20:17→21:17)
[2016-10-25 20:40] LABS: ANION GAP 8 mEq/L (8-16); CALCIUM 9.1 mg/dL (8.5-10.4); CARBON DIOXIDE 21 mEq/l (22-31); CHLORIDE 104 mEq/L (97-110); CREATININE 0.7 mg/dL (0.6-1.0); GLOMERULAR FILTRATION RATE > 60; POTASSIUM 4.7 mEq/L (3.5-5.2); SODIUM 133 mEq/L (134-144)
[2016-10-25 20:42] LABS: GLUCOSE 589 mg/dL (70-100)
[2016-10-25 21:19] LABS: COLOR YELLOW; LEUKOCYTE ESTERASE,URINE NEGATIVE (NEGATIVE); NITRITE,URINE NEGATIVE (NEGATIVE)
[2016-10-25 21:25] LABS: BACTERIA TRACE /hpf (NONE SEEN)
[2016-10-25 23:39] VITALS: PULSE 98; RESP 20; TEMP 97; O2SAT 96
[2016-10-26] MEDS ORDERED: glipiZIDE 5 MG TAB PO ONE (23:01)
== END 2016-10-25 23:40 | disposition home or self-care (01) ==
DX: E11.65 Type 2 diabetes mellitus with hyperglycemia (principal); E86.0 Dehydration; I10 Essential (primary) hypertension
CPT/HCPCS: 82947-QW

== ENCOUNTER 2016-11-24 10:21 | Inpatient (IN) | payer OTHER, MEDICAID ==
[2016-11-24 11:22] LABS: % IMMATURE GRANULYOCYTES 0.5 % (0.0-1.1); ABSOLUTE IMMATURE GRANULOCYTES 0.01 10^3/uL (0.00-0.10); ADD DIFF? NO; ADD MORPH? NO; ADD SCAN? NO; ATYPICAL LYMPHOCYTE FLAG 0 (0-99); FRAGMENT RBC FLAG 0 (0-99); HEMOGLOBIN 10.5 g/dL (12.6-16.3); LEFT SHIFT FLG 10 (0-99); LIPEMIA HEMOLYSIS FLAG 90 (0-99); MEAN CELL HEMOGLOBIN CONCENTR. 33.9 g/dL (32.4-36.7); MEAN CELL VOLUME 97.5 fL (81.5-99.8); MEAN PLATELET VOLUME 11.7 fL (8.7-11.7); PLATELET CLUMPS FLAG 0 (0-99); PLATELET COUNT 70 10^3/uL (150-400); RED BLOOD CELL COUNT 3.18 10^6/uL (4.18-5.33); RED CELL DISTRIBUTION WIDTH 16.1 % (11.5-15.2)
[2016-11-24 11:29] LABS: ALANINE AMINOTRANSFERASE 66 IU/L (9-52); ALBUMIN 3.2 g/dL (3.5-5.0); ALKALINE PHOSPHATASE 612 IU/L (38-126); ASPARTATE AMINOTRANSFERASE 58 IU/L (14-46); BILIRUBIN,TOTAL 2.6 mg/dL (0.1-1.4); BILIRUBIN-CONJUGATED 0.7 mg/dL (0.0-0.5); BILIRUBIN-UNCONJUGATED 1.9 mg/dL (0.0-1.1); CALCIUM 9.1 mg/dL (8.5-10.4); CARBON DIOXIDE 22 mEq/l (22-31); CHLORIDE 106 mEq/L (97-110); CREATININE 0.9 mg/dL (0.6-1.0); GLOMERULAR FILTRATION RATE > 60; GLUCOSE 221 mg/dL (70-100); SODIUM 135 mEq/L (134-144)
[2016-11-24 11:31] LABS: INR 1.18 (0.83-1.16)
[2016-11-24 11:32] LABS: APTT 27.1 SEC (23.0-38.0)
--- NOTE | 2016-11-24 11:34 | CPEKG ---
Heart Rate: 80 RR Interval: 750 P-R Interval: 152 QRSD Interval: 84 QT Interval: 412 QTC Interval: 476 P [place]: 47 QRS [place]: -19 T Wave [place]: 14 EKG Severity - OTHERWISE NORMAL ECG - EKG Impression: SINUS RHYTHM EKG Impression: BORDERLINE LEFT AXIS DEVIATION Electronically Signed By: Sincree Alexander 24-Nov-2016 15:38:06
[2016-11-24 11:40] LABS: TROPONIN I < 0.012 ng/mL (0-0.034)
--- NOTE | 2016-11-24 11:49 | EDPHY ---
HPI/HX/ROS/PE/MDM Narrative: CHIEF COMPLAINT: Somnolence, weak HPI: The patient is a Gabonese-speaking 71 y/o female arriving with her family due to progressive somnolence and weakness onset last night. She has a history that includes upper GI bleeds, hepatic encephalopathy, diabetes, and advanced cirrhosis. Her family reports last night she started to appear sleepy and weak. This morning, she was somnolent, didn't speak much, and was too weak to walk. Her family says these are the exact same symptoms as prior episodes of hyperammonemia. She does take Lactulose and her family denies any missed doses of any of her medications. Family denies fever, vomiting, blood in stool, recent trauma, or recent illness. History obtained via law clerk. REVIEW OF SYSTEMS: Aside from elements discussed in the HPI, a comprehensive 10-point review of systems was reviewed and is negative. 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 SOCIAL HISTORY: Family at bedside is Gabonese speaking. No alcohol or tobacco use. PHYSICAL EXAM: General:Patient is somnolent, in no acute distress. ENT: Mild scleral icterus, otherwise eyes are normal to inspection. ENT inspection normal. Neck: Normal inspection. Full range of motion. Respiratory:No respiratory distress. Breath sounds normal bilaterally. Cardiovascular: Regular rate and rhythm. Strong peripheral pulses. Normal cap refill. Abdomen:The abdomen is nontender to palpation. There are no peritoneal signs. Back: Normal to inspection. No tenderness to palpation. Skin: Normal color. No rash. Warm and dry. Extremities: 1+ pedal edema bilaterally. Otherwise normal appearance. Full range of motion. Neuro: Oriented x1. Normal motor function. Normal sensory function. Asterixis. ED Course: IV established. Labs drawn including CBC, CHEM, LFTs, ammonia, troponin, PTPTT. UA ordered. Patient placed on director of cardiac cath lab. The 12 lead EKG was interpreted by myself. See hard copy and/or "tracemaster" electronic copy for interpretation. Ammonia elevated at 106. Patient will be admitted to Dr. Johnson, hospitalist, for hepatic encephalopathy. MDM: This patient presents with AMS in setting of known hepatic encephalopathy. I see no signs of UTI or acute sepsis. She requires further workup and treatment for this condition. - Data Points Laboratory Results: Laboratory Results 11/24/16 10:11 11/24/16 10:11 11/24/16 11/24/16 11/24/16 12:35 11:01 10:11 WBC RBC Hgb Hct MCV MCH MCHC RDW Plt Count MPV Neut % (Auto) Lymph % (Auto) [place] % (Auto) Eos % (Auto) Baso % (Auto) Nucleat RBC Rel Count Absolute Neuts (auto) Absolute Lymphs (auto) Absolute Monos (auto) Absolute Eos (auto) Absolute Basos (auto) Absolute Nucleated RBC Immature Gran % Immature Gran # PT INR APTT Sodium 135 mEq/L mEq/L (134-144) Potassium 5.1 mEq/L mEq/L (3.5-5.2) Chloride 106 mEq/L mEq/L (97-110) Carbon Dioxide 22 mEq/l mEq/l (22-31) Anion Gap 7 mEq/L L mEq/L (8-16) BUN 28 mg/dL H mg/dL (7-23) Creatinine 0.9 mg/dL mg/dL (0.6-1.0) Estimated GFR > 60 Glucose 221 mg/dL H mg/dL (70-100) Calcium 9.1 mg/dL mg/dL (8.5-10.4) Total Bilirubin 2.6 mg/dL H mg/dL (0.1-1.4) Conjugated Bilirubin 0.7 mg/dL H mg/dL (0.0-0.5) Unconjugated Bilirubin 1.9 mg/dL H mg/dL (0.0-1.1) AST 58 IU/L H IU/L (14-46) ALT 66 IU/L H IU/L (9-52) Alkaline Phosphatase 612 IU/L H IU/L (38-126) Ammonia 106.0 uMOL/L H uMOL/L (9.0-30.0) Troponin I < 0.012 ng/mL ng/mL (0-0.034) Total Protein 7.0 g/dL g/dL (6.3-8.2) Albumin 3.2 g/dL L g/dL (3.5-5.0) Urine Color YELLOW Urine Appearance CLEAR Urine pH 6.0 (5.0-7.5) Ur Specific [place] 1.012 (1.002-1.030) Urine Protein NEGATIVE (NEGATIVE) Urine Ketones NEGATIVE (NEGATIVE) Urine Blood 1+ H (NEGATIVE) Urine Nitrate NEGATIVE (NEGATIVE) Urine Bilirubin NEGATIVE (NEGATIVE) Urine Urobilinogen NEGATIVE EU EU (0.2-1.0) Ur Leukocyte Esterase NEGATIVE (NEGATIVE) Urine RBC 5-10 /hpf H /hpf (0-3) Urine WBC 1-3 /hpf /hpf (0-3) Ur Epithelial Cells TRACE /lpf /lpf (NONE-1+) Hyaline Casts 5-15 /lpf /lpf (0-1) Urine Mucus TRACE /lpf /lpf (NONE-1+) Urine Glucose NEGATIVE (NEGATIVE) 11/24/16 11/24/16 10:11 10:11 WBC 2.08 10^3/uL L 10^3/uL (3.80-9.50) RBC 3.18 10^6/uL L 10^6/uL (4.18-5.33) Hgb 10.5 g/dL L g/dL (12.6-16.3) Hct 31.0 % L % (38.0-47.0) MCV 97.5 fL fL (81.5-99.8) MCH 33.0 pg pg (27.9-34.1) MCHC 33.9 g/dL g/dL (32.4-36.7) RDW 16.1 % H % (11.5-15.2) Plt Count 70 10^3/uL L 10^3/uL (150-400) MPV 11.7 fL fL (8.7-11.7) Neut % (Auto) 63.4 % % (39.3-74.2) Lymph % (Auto) 24.5 % % (15.0-45.0) [place]al[place] % (Auto) 8.2 % % (4.5-13.0) Eos % (Auto) 2.9 % % (0.6-7.6) Baso % (Auto) 0.5 % % (0.3-1.7) Nucleat RBC Rel Count 0.0 % % (0.0-0.2) Absolute Neuts (auto) 1.32 10^3/uL L 10^3/uL (1.70-6.50) Absolute Lymphs (auto) 0.51 10^3/uL L 10^3/uL (1.00-3.00) Absolute Monos (auto) 0.17 10^3/uL L 10^3/uL (0.30-0.80) Absolute Eos (auto) 0.06 10^3/uL 10^3/uL (0.03-0.40) Absolute Basos (auto) 0.01 10^3/uL L 10^3/uL (0.02-0.10) Absolute Nucleated RBC 0.00 10^3/uL 10^3/uL (0-0.01) Immature Gran % 0.5 % % (0.0-1.1) Immature Gran # 0.01 10^3/uL 10^3/uL (0.00-0.10) PT 15.0 SEC SEC (12.0-15.0) INR 1.18 H (0.83-1.16) APTT 27.1 SEC SEC (23.0-38.0) Sodium Potassium Chloride Carbon Dioxide Anion Gap BUN Creatinine Estimated GFR Glucose Calcium Total Bilirubin Conjugated Bilirubin Unconjugated Bilirubin AST ALT Alkaline Phosphatase Ammonia Troponin I Total Protein Albumin Urine Color Urine Appearance Urine pH Ur Specific [place] Urine Protein Urine Ketones Urine Blood Urine Nitrate Urine Bilirubin Urine Urobilinogen Ur Leukocyte Esterase Urine RBC Urine WBC Ur Epithelial Cells Hyaline Casts Urine Mucus Urine Glucose General Time Seen by Provider: 11/24/16 10:55 Initial Vital Signs: Initial Vital Signs Temperature (C) 36.8 C 11/24/16 10:23 Heart Rate 96 11/24/16 10:23 Respiratory Rate 18 11/24/16 10:23 Blood Pressure 111/71 11/24/16 10:23 O2 Sat (%) 100 11/24/16 10:23 O2 Delivery Mode Room Air Allergies/Adverse Reactions: insulin regular [Insulin Regular] Allergy (Verified 07/06/16 06:40) TONGUE NUMBNESS Penicillins Allergy (Verified 07/06/16 06:40) Rash Home Medications: Medication Instructions Recorded Ferrous Sulfate [Ferrous Sulf 325 325 mg PO DAILY 08/13/15 MG (*)] Furosemide [Lasix 20 MG (*)] 20 mg PO DAILY #30 tab 02/25/16 Spironolactone [Aldactone 25 MG 25 mg PO DAILY #30 tab 02/25/16 (*)] Simvastatin [Zocor] 80 mg PO DAILY18 05/31/16 Pantoprazole Sodium [Protonix 40mg 40 mg PO BID #60 tab 07/08/16 (*)] Insulin Detemir [Levemir] 35 unit SQ HS 11/24/16 Losartan Potassium [Cozaar 50 mg 50 mg PO DAILY 11/24/16 (*)] Rifaximin [Xifaxan] 550 mg PO BID 11/24/16 glipiZIDE [Glipizide] 5 mg PO BIDMEAL 11/24/16 Departure - Departure Disposition: [facility] Inpatient Acute Clinical Impression: Hepatic encephalopathy Altered mental status Qualifiers: Altered mental status type: somnolence Qualified Code(s): R40.0 - Somnolence Condition: Fair Report Scribed for: Sincere Alexander Report Scribed by: Carie Candelaria Date of Report: 11/24/16 Time of Report: 10:57
[2016-11-24 11:51] LABS: ANION GAP 7 mEq/L (8-16); POTASSIUM 5.1 mEq/L (3.5-5.2)
[2016-11-24 12:41] LABS: COLOR YELLOW; LEUKOCYTE ESTERASE,URINE NEGATIVE (NEGATIVE); NITRITE,URINE NEGATIVE (NEGATIVE)
[2016-11-24 12:47] LABS: MUCUS TRACE /lpf (NONE-1+)
[2016-11-24] MEDS ORDERED: ONDANSETRON 4 MG/2 ML VIAL IVP PRN (13:37)
[2016-11-24] MEDS ORDERED: ACETAMINOPHEN 325 MG TAB PO PRN (13:37)
[2016-11-24] MEDS ORDERED: ONDANSETRON DISINTEGRATING 4 MG TAB PO PRN (13:37)
[2016-11-24] MEDS: LACTULOSE 20 GM/30 ML UDCUP PO SCH ×2 (14:22→21:50)
[2016-11-24] MEDS ORDERED: LACTULOSE 20 GM/30 ML UDCUP PO SCH (16:00)
[2016-11-24] MEDS ORDERED: D50W 25 GM/50 ML SYR IVP PRN (16:33)
--- NOTE | 2016-11-24 16:52 | GHP ---
[f rep st] HISTORY AND PHYSICAL DATE OF ADMISSION: 11/24/2016 CHIEF COMPLAINT: Lethargy and confusion. HISTORY OF PRESENT ILLNESS: This is a 71-year-old female with a history of advanced cryptogenic cir rhosis who presents after family found her this morning appearing more confused and lethargic. The p atient apparently was in her normal state of health in the several days preceding her hospitalizatio n. Denies any chest pain, shortness of breath, cough, subjective fevers, chills, is describing some dysuria. Denies any diarrhea or hematuria. Denies worsening lower extremity edema, known sick contac ts or rashes. PAST MEDICAL HISTORY: A 71-year-old female with a history of: 1. Advance cryptogenic cirrhosis. 2. Esophageal varices, status post banding. 3. Portal hypertensive gastropathy, status post GI bleed. 4. Hepatic encephalopathy. 5. Chronic iron deficiency anemia. 6. Diabetes, type 2. SOCIAL HISTORY: Negative for tobacco, alcohol or illicit drugs. FAMILY HISTORY: Negative for any known liver disease. ADVANCED DIRECTIVES: The patient wishes to be full cor, full tube. Her family is her medical decis ionmaker. REVIEW OF SYSTEMS: A 10-point review of systems is negative with the exception of that reported in the HPI. PHYSICAL EXAMINATION: VITAL SIGNS: Blood pressure is 115/52, heart rate 82, respiratory rate 16, 9 9% on room air, temperature 36.9. GENERAL: This is an obese-appearing, pleasant 71-year-old female. HEENT: Notable for dry mucous membranes. Eyes: Negative for any icterus. CARDIAC: Patient is re gular rate and rhythm. PULMONARY: She has good respiratory effort, is clear to auscultation bilate rally. GASTROINTESTINAL: Obese. Positive bowel sounds. Soft and nontender in all 4 quadrants. MU SCULOSKELETAL: Negative for any lower extremity edema. SKIN: Negative for any rashes. NEUROLOGIC: Patient has asterixis on examination, is alert and oriented x2. PSYCHIATRIC: She is pleasant and donor relations coordinator perative on interview and examination. LABORATORY DATA: White count 2.08, hematocrit 31.0, platelet count of 70. Creatinine is 0.9. Sodi um 135, total bilirubin 2.6, AST 58, AST 66. An EKG which I personally reviewed and interpreted, sh ows sinus rhythm, leftward axis deviation, T-wave inversion in V1. No acute ST-T changes. ASSESSMENT AND PLAN: This is a 71-year-old female presenting with acute confusion. 1. Acute encephalopathy, hepatic in etiology. Patient has asterixis on examination. After discussi on with the family, it sounds as if they may have been avoiding lactulose therapy because of the sug ar content, not wanting to upset her diabetes. We will rule out occult infections with checking a ur inalysis but will treat with scheduled three times daily lactulose overnight until we have improved stooling. I suspect this is it will require for improvement in her encephalopathy. 2. Advanced cryptogenic cirrhosis. We will continue her outpatient medications. 3. Diabetes. We will continue the patient's Levemir and glipizide medication. 4. History of hepatic gastropathy. We will continue the patient's proton pump inhibitor. 5. Hepatic encephalopathy. We will increase lactulose intake as described above and continue Rifax imin. 6. Hyperlipidemia. We will continue her statin therapy. 7. Prophylaxis. Will hold until we are confident the patient is not bleeding. 8. Diet: Low salt. 9. Disposition: Expect greater than 2 midnights as the patient is cirrhotic, presenting with hepati c encephalopathy requiring treatment and monitoring. I discussed the case with the emergency room ph ysician. The patient will be triaged to the medical-surgical floor for care. /[id number]/MODL
[2016-11-24] MEDS ORDERED: NON-FORMULARY NEW DRUG (Simvastatin [Zocor] 80 MG) PO SCH (18:00)
[2016-11-24] MEDS: ATORVASTATIN CALCIUM 40 MG TAB PO SCH (18:24)
[2016-11-24] MEDS: glipiZIDE 5 MG TAB PO SCH (18:24)
[2016-11-24] MEDS: INSULIN LISPRO 100 UNIT/ML SC SCH (18:25)
[2016-11-24] MEDS ORDERED: INSULIN GLARGINE 100 UNITS/ML SYRINGE SC SCH (21:00)
[2016-11-24] MEDS: PANTOPRAZOLE SODIUM 40 MG TAB PO SCH (21:50)
[2016-11-24] MEDS: RIFAXIMIN 550 MG TAB PO SCH (21:50)
[2016-11-25 05:25] LABS: ADD DIFF? NO; ADD MORPH? NO; ADD SCAN? NO; ATYPICAL LYMPHOCYTE FLAG 10 (0-99); FRAGMENT RBC FLAG 0 (0-99); HEMATOCRIT 27.4 % (38.0-47.0); HEMOGLOBIN 9.2 g/dL (12.6-16.3); LEFT SHIFT FLG 0 (0-99); LIPEMIA HEMOLYSIS FLAG 80 (0-99); MEAN CELL HEMOGLOBIN 33.1 pg (27.9-34.1); MEAN CELL HEMOGLOBIN CONCENTR. 33.6 g/dL (32.4-36.7); MEAN CELL VOLUME 98.6 fL (81.5-99.8); MEAN PLATELET VOLUME 11.5 fL (8.7-11.7); PLATELET CLUMPS FLAG 0 (0-99); PLATELET COUNT 63 10^3/uL (150-400); RED BLOOD CELL COUNT 2.78 10^6/uL (4.18-5.33); RED CELL DISTRIBUTION WIDTH 16.2 % (11.5-15.2)
[2016-11-25 05:39] LABS: ANION GAP 6 mEq/L (8-16); CALCIUM 8.9 mg/dL (8.5-10.4); CARBON DIOXIDE 20 mEq/l (22-31); CHLORIDE 111 mEq/L (97-110); CREATININE 0.8 mg/dL (0.6-1.0); GLOMERULAR FILTRATION RATE > 60; GLUCOSE 255 mg/dL (70-100); POTASSIUM 4.7 mEq/L (3.5-5.2); SODIUM 137 mEq/L (134-144)
[2016-11-25] MEDS: glipiZIDE 5 MG TAB PO SCH ×2 (09:41→17:14)
[2016-11-25] MEDS: LACTULOSE 20 GM/30 ML UDCUP PO SCH ×3 (09:41→21:49)
[2016-11-25] MEDS: RIFAXIMIN 550 MG TAB PO SCH ×2 (09:41→21:49)
[2016-11-25] MEDS: INSULIN LISPRO 100 UNIT/ML SC SCH ×3 (09:42→17:14)
[2016-11-25] MEDS: PANTOPRAZOLE SODIUM 40 MG TAB PO SCH ×2 (09:42→21:49)
[2016-11-25] MEDS: FERROUS SULFATE 325 MG TAB PO SCH (09:42)
[2016-11-25] MEDS ORDERED: INSULIN GLARGINE 100 UNITS/ML SYRINGE SC SCH (14:11)
--- NOTE | 2016-11-25 14:15 | HOSPPROG ---
Hospitalist Progress Note Assessment/Plan: # acute hepatic encephalopathy- patient still with asterixis on exam- no clear exacerbating factor identified beyond medication noncompliance with lactulose oxygen saturations 95% on room air - continue scheduled lactulose three times daily - continue rifaximin - continue monitoring # diabetes mellitus- uncontrolled- insulins re-reconciled patient typically takes a daytime dose of long-acting insulin as well- blood sugars in the 200s to 250s overnight - will start daytime insulin tomorrow - continue HS dosing Lantus # chronic iron-deficiency anemia- EKG(personally reviewed and interpreted) no acute changes- Hgb 9 - continue PPI # hypertension- have held the patient's ARB in 2 diuretics overnight as her blood pressures were normal at presentation risk of dehydration as a trigger for in cephalopathy possible - can restart meds if blood pressures rise # diet low-salt # prophylaxis- holding as history of upper GI bleed in past and hemoglobin dropped 10->9 I have discussed the case with the Pharm D- will review reconcile medications as more accurate insulin home dosing has been clarified Subjective: Denies abdominal or chest pain Objective: Vital Signs Temp Pulse Resp BP Pulse Ox 35.8 C L 93 14 156/91 H 98 11/25/16 11:26 11/25/16 11:26 11/25/16 11:26 11/25/16 11:26 11/25/16 11:26 Laboratory Results 11/25/16 05:07 11/25/16 05:07 11/24/16 11/25/16 11/26/16 05:59 05:59 05:59 Intake Total 350 Output Total 850 300 Balance -500 -300 PT 15.0 SEC (12.0-15.0) 11/24/16 10:11 INR 1.18 (0.83-1.16) H 11/24/16 10:11 - Physical Exam Constitutional: obese Eyes: anicteric sclera Ears, Nose, Mouth, Throat: dry mucous membranes Cardiovascular: regular rate and rhythym Respiratory: no respiratory distress, no rales or rhonchi Gastrointestinal: normoactive bowel sounds Genitourinary: no bladder fullness Skin: warm, normal color Musculoskeletal: No asymmetric calves Neurologic: asterixes, No AAOx3 Psychiatric: agitated ICD10 Worksheet Patient Problems: Problems Problem Status Onset Altered mental status Acute Hepatic encephalopathy Acute Altered mental status Acute Anemia Acute Cirrhosis Acute Diabetes Acute Diarrhea Acute Encephalopathy Acute Hematemesis Acute Upper GI bleed Acute
[2016-11-25] MEDS: ATORVASTATIN CALCIUM 40 MG TAB PO SCH (17:14)
[2016-11-25] MEDS ORDERED: INSULIN DETEMIR 15 UNIT SQ SCH (21:00)
[2016-11-26] MEDS: traMADol 50 MG TAB PO PRN ×3 (00:38→16:28)
[2016-11-26 08:30] VITALS: BP 131/59; PULSE 87; RESP 12; TEMP 98.5; O2SAT 97
[2016-11-26] MEDS ORDERED: INSULIN GLARGINE 100 UNIT/ML VIAL SC SCH (09:00)
[2016-11-26] MEDS: glipiZIDE 5 MG TAB PO SCH (09:47)
[2016-11-26] MEDS: INSULIN LISPRO 100 UNIT/ML SC SCH ×2 (09:47→12:57)
[2016-11-26] MEDS: RIFAXIMIN 550 MG TAB PO SCH (09:52)
[2016-11-26] MEDS: FERROUS SULFATE 325 MG TAB PO SCH (09:52)
[2016-11-26] MEDS: PANTOPRAZOLE SODIUM 40 MG TAB PO SCH (09:52)
[2016-11-26] MEDS: LACTULOSE 20 GM/30 ML UDCUP PO SCH ×2 (10:00→16:28)
[2016-11-26 12:13] LABS: ALANINE AMINOTRANSFERASE 57 IU/L (9-52); ALBUMIN 2.8 g/dL (3.5-5.0); ALKALINE PHOSPHATASE 490 IU/L (38-126); ANION GAP 8 mEq/L (8-16); ASPARTATE AMINOTRANSFERASE 68 IU/L (14-46); BILIRUBIN,TOTAL 2.7 mg/dL (0.1-1.4); CALCIUM 8.8 mg/dL (8.5-10.4); CARBON DIOXIDE 16 mEq/l (22-31); CHLORIDE 112 mEq/L (97-110); CREATININE 0.8 mg/dL (0.6-1.0); GLOMERULAR FILTRATION RATE > 60; GLUCOSE 386 mg/dL (70-100); POTASSIUM 4.7 mEq/L (3.5-5.2); SODIUM 136 mEq/L (134-144); TOTAL PROTEIN 6.5 g/dL (6.3-8.2)
[2016-11-26 12:20] LABS: BILIRUBIN-CONJUGATED 0.9 mg/dL (0.0-0.5); BILIRUBIN-UNCONJUGATED 1.8 mg/dL (0.0-1.1)
--- NOTE | 2016-11-26 13:36 | PDIAF ---
- Diagnosis Diagnosis: hepatic encephalopathy Code Status: Full Code - Medication Management Discharge Medications: Medications to Continue on Transfer Ferrous Sulfate [Ferrous Sulf 325 MG (*)] 325 mg PO DAILY 08/13/15 [Last Taken 05/30/16] Furosemide [Lasix 20 MG (*)] 20 mg PO DAILY #30 tab 02/25/16 [Last Taken ] Spironolactone [Aldactone 25 MG (*)] 25 mg PO DAILY #30 tab 02/25/16 [Last Taken 05/31/16] Simvastatin [Zocor] 80 mg PO DAILY18 05/31/16 [Last Taken 05/30/16] Pantoprazole Sodium [Protonix 40mg (*)] 40 mg PO BID #60 tab 07/08/16 [Last Taken Unknown] Losartan Potassium [Cozaar 50 mg (*)] 50 mg PO DAILY 11/24/16 [Last Taken Unknown] Rifaximin [Xifaxan] 550 mg PO BID 11/24/16 [Last Taken Unknown] glipiZIDE [Glipizide] 5 mg PO BIDMEAL 11/24/16 [Last Taken Unknown] Insulin Detemir [Levemir] 15 unit SQ HS 11/25/16 [Last Taken Unknown] Insulin Detemir [Levemir] 35 unit SQ DAILY 11/25/16 [Last Taken Unknown] traMADol [Ultram 50 mg (*)] 50 mg PO Q6 PRN 11/25/16 [Last Taken Unknown] Lactulose 20 gm PO TID #1 btl 11/26/16 [Last Taken Unknown] Discharge Medications: Refer to the Discharge Home Medication list for PRN reason. - Orders Services needed: Home Care, Registered Nurse, Physical Therapy Home Care Face to Face: I certify that this patient was under my care and that I had the required [id number] encounter meeting the encounter requirements on the discharge day. My findings support the fact that the patient is homebound as defined in CMS Chapter 7 Medicare Benefits Manual 30.1.1, The condition of the patient is such that there exists a normal inability to leave home and consequently, leaving home would require a considerable and taxing effort. Diet Recommendation: sodium restricted, ADA 1800 consistent carb Diet Texture: Regular Texture Diet - Follow Up Care Current Providers and Referrals: Edith Clark MD [Primary Care Provider] - As per Instructions
--- NOTE | 2016-11-26 14:48 | GDS ---
[f rep st] DISCHARGE SUMMARY CHIEF COMPLAINT: Confusion. DISCHARGE DIAGNOSES: 1. Acute hepatic encephalopathy secondary to lactulose noncompliance. 2. Advanced cryptogenic cirrhosis. 3. Diabetes mellitus. 4. Esophageal varices status post banding. 5. Portal hypertensive gastropathy status post gastrointestinal bleed. 6. Chronic iron deficiency anemia. HISTORY OF PRESENT ILLNESS: A 71-year-old female with a history of advanced cryptogenic cirrhosis a nd known hepatic encephalopathy, who presents with lethargy and confusion. For details of patient's initial presentation, please see the history and physical dated 11/24/2016. CONSULTATIVE SERVICES: None. PROCEDURES: None. HOSPITAL COURSE BY ISSUE: 1. Acute encephalopathy, hepatic in nature. The patient presented with pronounced asterixis. Upon interview with the family, it appears that they were avoiding the use of lactulose in the home seco ndary to its sugary content and concerns that it would affect the patient's glycemic control. The p atient was worked up for occult infections, dehydration, occult GI bleed as other possible etiologie s for her worsening encephalopathy, all of which were negative. We increased her lactulose dosing f rom daily to t.i.d. and she had marked improvement in her mental status and resolution of her asteri xis. We have recommended that the patient continue to take t.i.d. lactulose, unless stooling greate r than 5 times, then she can hold the dose and resume the t.i.d. dosing the following day. 2. Chronic anemia. The patient's H and H remained stable during this stay. 3. Diabetes type 2. We were not able to reinitiate the patient's normal home dosing of insulin eff ectively during this stay. She was hyperglycemic, but I suspect this will improve after adding the 2nd long-acting dose of Lantus she is typically taking. MEDICATIONS AT TIME OF DISPOSITION: Please reference the medication reconciliation printed on 11/26. FOLLOWUP APPOINTMENTS: Include with her primary care physician in the next 2-4 weeks for a post-dis position followup. The patient is being discharged with home health and home physical therapy. PENDING STUDIES: At the time of this dictation are none. TIME SPENT: I spent greater than 30 minutes in the planning and coordination of this discharge. /[id number]/MODL
== END 2016-11-26 16:52 | disposition home or self-care (01) | DRG 443 ==
LOC: OBSVTOIN 13:37 → F3E 15:52
PROVIDERS: ADMIT Family Medicine; ATTEND Hospitalist
DX: K72.00 Acute and subacute hepatic failure without coma (principal); Z91.128 Patient's intentional underdosing of medication regimen for other reason; T47.3X6A Underdosing of saline and osmotic laxatives, initial encounter; E11.65 Type 2 diabetes mellitus with hyperglycemia; Z79.4 Long term (current) use of insulin; K74.69 Other cirrhosis of liver; Z87.440 Personal history of urinary (tract) infections; D50.9 Iron deficiency anemia, unspecified; Z87.19 Personal history of other diseases of the digestive system
CPT/HCPCS: 97116-GP; 97161-GP; 97165-GO; G8978-GP-CJ; G8979-GP-CI; G8987-GO-CK; G8988-GO-CI; J1815

== ENCOUNTER → 2016-12-06 | Outpatient (CLI) | payer OTHER, MEDICAID | LOC: FIMAGING 10:23 | PROVIDERS: ATTEND Family Medicine | DX: S32.030A Wedge compression fracture of third lumbar vertebra, initial encounter for closed fracture (principal); S32.040A Wedge compression fracture of fourth lumbar vertebra, initial encounter for closed fracture; M85.80 Other specified disorders of bone density and structure, unspecified site; M53.87 Other specified dorsopathies, lumbosacral region ==

== ENCOUNTER 2017-01-19 12:14 | Emergency (ER) | payer OTHER, MEDICAID ==
[2017-01-19] MEDS ORDERED: HYDROmorphONE/DILAUDID 1 MG/ML SYR IVP ONE (13:17)
--- NOTE | 2017-01-19 13:20 | EDPHY ---
H & P Stated Complaint: chronic back pain/increasing over last 10 days/unable to walk Time Seen by Provider: 01/19/17 13:02 HPI/ROS: CHIEF COMPLAINT: Hip pain HISTORY OF PRESENT ILLNESS: The patient is a 71-year-old female who comes to the emergency department with her son complaining of bilateral hip pain. Son states that she has had chronic hip pain for several months and that she takes tramadol. She had x-rays performed 3 months ago that were negative. Her pain has increased over the last week and her son states that she will no longer ambulate. She has not had a fever. She denies mid or low back pain. She denies recent falls or injuries. She denies knee pain. She has had her left hip replaced. Patient states that her left hip hurts worse than her right but the son states that he has been more concerned about her right hip because she has not been moving it. REVIEW OF SYSTEMS: Constitutional: denies: chills, fever, recent illness, recent injury EENTM: denies: blurred vision, double vision, nose congestion Respiratory: denies: cough, shortness of breath Cardiac: denies: chest pain, irregular heart rate, lightheadedness, palpitations Gastrointestinal/Abdominal: denies: abdominal pain, diarrhea, nausea, vomiting, blood streaked stools Genitourinary: denies: dysuria, frequency, hematuria, pain Musculoskeletal: See HPI Skin: denies: lesions, rash, jaundice, bruising Neurological: denies: headache, numbness, paresthesia, tingling, dizziness, weakness Hematologic/Lymphatic: denies: blood clots, easy bleeding, easy bruising Immunologic/allergic: denies: HIV/AIDS, transplant EXAM: GENERAL: Well-appearing, well-nourished and in no acute distress. HEAD: Atraumatic, normocephalic. EYES: Pupils equal round and reactive to light, extraocular movements intact, sclera anicteric, conjunctiva are normal. ENT: TMs normal, nares patent, oropharynx clear without exudates. Moist mucous membranes. NECK: Normal range of motion, supple without lymphadenopathy or JVD. LUNGS: Breath sounds clear to auscultation bilaterally and equal. No wheezes rales or rhonchi. HEART: Regular rate and rhythm without murmurs, rubs or gallops. ABDOMEN: Soft, nontender, normoactive bowel sounds. No guarding, no rebound. No masses appreciated. BACK: No CVA tenderness, no spinal tenderness, step-offs or deformities EXTREMITIES: Pain with movement of left hip. Mild tenderness to palpation. No shortening. No erythema. Incision well healed NEUROLOGICAL: Cranial nerves II through XII grossly intact. Normal speech. 4/ 5 strength, no trouble lifting legs off bed. normal movement in all extremities , normal sensation PSYCH: Normal mood, normal affect. SKIN: Warm, dry, normal turgor, no visible rashes or lesions. Source: Patient Exam Limitations: No limitations - Personal History Current Tetanus/Diphtheria Vaccine: Yes Tetanus Vaccine Date: 2014 - Medical/Surgical History Hx Asthma: No Hx Chronic Respiratory Disease: No Hx Diabetes: Yes Hx Cardiac Disease: Yes Hx Renal Disease: No Hx Cirrhosis: Yes Hx Alcoholism: No Hx HIV/AIDS: No Hx Splenectomy or Spleen Trauma: No Other PMH: HTN, disk surgeries, 2 hip surgeries, diabetes. cirrosis; anemia; UTIs. chronic pain - Social History Smoking Status: Never smoked Alcohol Use: Sober Drug Use: None Constitutional: Initial Vital Signs Temperature (C) 37.1 C 01/19/17 12:37 Heart Rate 102 H 01/19/17 12:37 Respiratory Rate 22 H 01/19/17 12:37 Blood Pressure 153/73 H 01/19/17 12:37 O2 Sat (%) 98 01/19/17 12:37 O2 Delivery Mode Room Air Allergies/Adverse Reactions: insulin regular [Insulin Regular] Allergy (Verified 01/19/17 12:35) TONGUE NUMBNESS Penicillins Allergy (Verified 01/19/17 12:35) Rash Home Medications: Medication Instructions Recorded Ferrous Sulfate [Ferrous Sulf 325 325 mg PO DAILY 08/13/15 MG (*)] Furosemide [Lasix 20 MG (*)] 20 mg PO DAILY #30 tab 02/25/16 Spironolactone [Aldactone 25 MG 25 mg PO DAILY #30 tab 02/25/16 (*)] Simvastatin [Zocor] 80 mg PO DAILY18 05/31/16 Pantoprazole Sodium [Protonix 40mg 40 mg PO BID #60 tab 07/08/16 (*)] Losartan Potassium [Cozaar 50 mg 50 mg PO DAILY 11/24/16 (*)] Rifaximin [Xifaxan] 550 mg PO BID 11/24/16 glipiZIDE [Glipizide] 5 mg PO BIDMEAL 11/24/16 Insulin Detemir [Levemir] 15 unit SQ HS 11/25/16 Insulin Detemir [Levemir] 35 unit SQ DAILY 11/25/16 traMADol [Ultram 50 mg (*)] 50 mg PO Q6 PRN 11/25/16 Lactulose 20 gm PO TID #1 btl 11/26/16 Medical Decision Making - Diagnostics Imaging Results: Imaging Impressions Hip X-Ray 01/19/17 13:17 Impression: 1. Left total hip replacement with pelvic hardware in stable position. 2. Fracture associated with one of the superior screws associated with the left iliac hardware. This is stable. 3. No significant abnormality seen about the right hip. 4. Underlying osteopenia/osteoporosis suspected. If indicated, consider DEXA scan at some point to evaluate bone mineral density. Previous DEXA scan in 2016 revealed osteoporosis. X-ray: Bilateral hip x-ray was obtained. I viewed the images myself on the PACS system. My interpretation of the images is: Negative for fractures, unchanged from previous. The radiologist interpretation is pending. ED Course/Re-evaluation: The patient's x-rays and lab work are baseline. I will treat her with pain medication and road test. 4 p.m. the patient is able to ambulate to the bathroom. She is at her baseline. I will discharge her at this point and have her follow up with her primary doctor. Differential Diagnosis: Partial list of the Differential diagnosis considered include but were not limited to; bilateral hip pain, arthritis, radiculopathy, lumbar injury and although unlikely based on the history and physical exam, I also considered cauda equina, tumor, infection, dislocation, fracture. I discussed these differential diagnoses and the plan with the patient as well as the usual and expected course. The patient understands that the diagnosis is provisional and that in medicine we are not always correct and that further workup is often warranted. Usual and customary warnings were given. All of the patient's questions were answered. The patient was instructed to return to the emergency department should the symptoms at all worsen or return, otherwise to followup with the physician as we discussed. - Data Points Laboratory Results: Laboratory Results 01/19/17 13:35 01/19/17 13:17 01/19/17 01/19/17 13:35 13:17 WBC 3.27 10^3/uL L 10^3/uL (3.80-9.50) RBC 2.75 10^6/uL L 10^6/uL (4.18-5.33) Hgb 9.0 g/dL L g/dL (12.6-16.3) Hct 28.0 % L % (38.0-47.0) MCV 101.8 fL H fL (81.5-99.8) MCH 32.7 pg pg (27.9-34.1) MCHC 32.1 g/dL L g/dL (32.4-36.7) RDW 14.4 % % (11.5-15.2) Plt Count 73 10^3/uL L 10^3/uL (150-400) MPV 12.2 fL H fL (8.7-11.7) Neut % (Auto) 64.8 % % (39.3-74.2) Lymph % (Auto) 21.4 % % (15.0-45.0) [place] % (Auto) 8.9 % % (4.5-13.0) Eos % (Auto) 3.7 % % (0.6-7.6) Baso % (Auto) 0.9 % % (0.3-1.7) Nucleat RBC Rel Count 0.0 % % (0.0-0.2) Absolute Neuts (auto) 2.12 10^3/uL 10^3/uL (1.70-6.50) Absolute Lymphs (auto) 0.70 10^3/uL L 10^3/uL (1.00-3.00) Absolute Monos (auto) 0.29 10^3/uL L 10^3/uL (0.30-0.80) Absolute Eos (auto) 0.12 10^3/uL 10^3/uL (0.03-0.40) Absolute Basos (auto) 0.03 10^3/uL 10^3/uL (0.02-0.10) Absolute Nucleated RBC 0.00 10^3/uL 10^3/uL (0-0.01) Immature Gran % 0.3 % % (0.0-1.1) Immature Gran # 0.01 10^3/uL 10^3/uL (0.00-0.10) Sodium 141 mEq/L mEq/L (134-144) Potassium 4.6 mEq/L mEq/L (3.5-5.2) Chloride 113 mEq/L H mEq/L (97-110) Carbon Dioxide 16 mEq/l L mEq/l (22-31) Anion Gap 12 mEq/L mEq/L (8-16) BUN 20 mg/dL mg/dL (7-23) Creatinine 1.1 mg/dL H mg/dL (0.6-1.0) Estimated GFR 49 Glucose 299 mg/dL H mg/dL (70-100) Calcium 8.6 mg/dL mg/dL (8.5-10.4) Total Bilirubin 1.9 mg/dL H mg/dL (0.1-1.4) Conjugated Bilirubin 0.6 mg/dL H mg/dL (0.0-0.5) Unconjugated Bilirubin 1.3 mg/dL H mg/dL (0.0-1.1) AST 66 IU/L H IU/L (14-46) ALT 57 IU/L H IU/L (9-52) Alkaline Phosphatase 509 IU/L H IU/L (38-126) Total Protein 6.6 g/dL g/dL (6.3-8.2) Albumin 3.1 g/dL L g/dL (3.5-5.0) Lipase 267.0 IU/L IU/L (23-300) Medications Given: Discontinued Medications Hydromorphone HCl (Dilaudid) 0.5 mg IVP EDNOW ONE Stop: 01/19/17 13:18 Last Admin: 01/19/17 14:26 Dose: Not Given Hydromorphone HCl (Dilaudid) 1 mg IM EDNOW ONE Stop: 01/19/17 14:25 Last Admin: 01/19/17 14:32 Dose: 1 mg Departure - Departure Disposition: Home, Routine, Self-Care Clinical Impression: Chronic left hip pain Condition: Fair Instructions: Hip Pain (ED) Referrals: Edith Clark MD [Primary Care Provider] - As per Instructions
[2017-01-19 13:44] LABS: % IMMATURE GRANULYOCYTES 0.3 % (0.0-1.1); ABSOLUTE IMMATURE GRANULOCYTES 0.01 10^3/uL (0.00-0.10); ADD DIFF? NO; ADD MORPH? NO; ADD SCAN? NO; ATYPICAL LYMPHOCYTE FLAG 0 (0-99); FRAGMENT RBC FLAG 0 (0-99); LEFT SHIFT FLG 0 (0-99); LIPEMIA HEMOLYSIS FLAG 80 (0-99); MEAN CELL HEMOGLOBIN 32.7 pg (27.9-34.1); MEAN CELL HEMOGLOBIN CONCENTR. 32.1 g/dL (32.4-36.7); MEAN CELL VOLUME 101.8 fL (81.5-99.8); MEAN PLATELET VOLUME 12.2 fL (8.7-11.7); PLATELET CLUMPS FLAG 0 (0-99); PLATELET COUNT 73 10^3/uL (150-400); RED BLOOD CELL COUNT 2.75 10^6/uL (4.18-5.33); RED CELL DISTRIBUTION WIDTH 14.4 % (11.5-15.2)
[2017-01-19] MEDS ORDERED: ONDANSETRON DISINTEGRATING 4 MG TAB ONE (14:08)
[2017-01-19 14:10] LABS: ALANINE AMINOTRANSFERASE 57 IU/L (9-52); ALBUMIN 3.1 g/dL (3.5-5.0); ALKALINE PHOSPHATASE 509 IU/L (38-126); ANION GAP 12 mEq/L (8-16); ASPARTATE AMINOTRANSFERASE 66 IU/L (14-46); BILIRUBIN,TOTAL 1.9 mg/dL (0.1-1.4); BILIRUBIN-CONJUGATED 0.6 mg/dL (0.0-0.5); BILIRUBIN-UNCONJUGATED 1.3 mg/dL (0.0-1.1); CALCIUM 8.6 mg/dL (8.5-10.4); CARBON DIOXIDE 16 mEq/l (22-31); CHLORIDE 113 mEq/L (97-110); CREATININE 1.1 mg/dL (0.6-1.0); GLOMERULAR FILTRATION RATE 49; GLUCOSE 299 mg/dL (70-100); POTASSIUM 4.6 mEq/L (3.5-5.2); SODIUM 141 mEq/L (134-144); TOTAL PROTEIN 6.6 g/dL (6.3-8.2)
[2017-01-19] MEDS ORDERED: HYDROmorphONE/DILAUDID 1 MG/ML SYR IM ONE (14:24)
[2017-01-19 15:57] VITALS: BP 144/85; PULSE 89; RESP 16; TEMP 97.9; O2SAT 95
== END 2017-01-19 15:56 | disposition home or self-care (01) ==
DX: M25.552 Pain in left hip (principal); G89.29 Other chronic pain; E11.9 Type 2 diabetes mellitus without complications; I10 Essential (primary) hypertension; Z79.4 Long term (current) use of insulin; Z96.642 Presence of left artificial hip joint
CPT/HCPCS: 73521; 96372; 99284; J1170

== ENCOUNTER 2017-01-26 17:26 | Inpatient (IN) | payer OTHER, MEDICAID ==
--- NOTE | 2017-01-26 17:33 | EDPHY ---
H & P Time Seen by Provider: 01/26/17 17:32 HPI/ROS: CHIEF COMPLAINT: Nausea, vomiting HISTORY OF PRESENT ILLNESS: This patient is a Malay-speaking 71 year old female with history of cryptogenic cirrhosis arriving from home via EMS complaining of multiple episodes of vomiting onset today. EMS crews administered 100mg fentanyl and 4mg Zofran in transport. She had a recent admission and has had changes in medication due to pain to her left hip following a fall two weeks ago. She has had seven bouts of vomiting today. She denies diarrhea, problems urinating, headache, fever, abdominal pain, chest pain, shortness of breath, or other associated symptoms. HPI obtained primarily from outer diameter grinder at bedside. REVIEW OF SYSTEMS: Limited due to patient presentation. She is very quiet, and seems confused. The outer diameter grinder is unable to obtain further information. Source: Patient, Family, EMS, Cardroom Attendant, Old records - Medical/Surgical History PMH: 1. Advanced cryptogenic cirrhosis 2. Esophageal varices, status post banding 3. Hepatic gastropathy, status post GI bleed (Pantoprazole) 4. Hepatic encephalopathy 5. Chronic iron deficiency anemia 6. Type II Diabetes Mellitus (Glipizide, Levemir) 7. Hyperlipidemia (Simvastatin) Medications: Losartan, Lasix, Spironolactone, Pantoprazole, Zofran, Oxycodone, Past medical records reviewed including admission from 11/24/16 for hepatic encephalopathy. - Social History Additional Social History: Lives with her son. Malay speaking. Edith Clark PCP. - Physical Exam Exam: General Appearance: Alert. Vital signs reviewed. Heart rate 102 at triage. Blood pressure 144/47. Eyes: Pupils equal and round, no conjunctival injection, no discharge. Anicteric. ENT, Mouth: Mucous membranes are moist, no oropharyngeal erythema or edema. Neck: No lymphadenopathy, supple. Respiratory: Lungs are clear to auscultation; no wheezes, rales, or rhonchi. Cardiovascular: Regular rate and rhythm; no murmur, rub, or gallop. Not tachycardic at the time of my evaluation. Gastrointestinal: Abdomen is soft and nontender, no masses or organomegaly, bowel sounds normal. Skin: Warm and dry, no rashes on exposed skin, normal color. Back: Nontender to palpation over the thoracolumbar spine. No CVAT. Extremities: No lower extremity edema, no calf tenderness or swelling. Neurological: Awake, oriented to person, place, initially gave the year in correctly but ultimately provided the correctyear. Extraocular movements are full. Facial expressions symmetric. Tongue is midline.Asterixis is present. Moving all four extremities easily and equally. Psychiatric: Normal affect. No agitation. Constitutional: Initial Vital Signs Temperature (C) 36.7 C 01/26/17 17:37 Heart Rate 102 H 01/26/17 17:37 Respiratory Rate 18 01/26/17 17:37 Blood Pressure 144/47 H 01/26/17 17:37 O2 Sat (%) 97 01/26/17 17:37 O2 Delivery Mode Room Air Allergies/Adverse Reactions: insulin regular [Insulin Regular] Allergy (Verified 01/19/17 12:35) TONGUE NUMBNESS Penicillins Allergy (Verified 01/19/17 12:35) Rash Home Medications: Medication Instructions Recorded Ferrous Sulfate [Ferrous Sulf 325 325 mg PO DAILY 08/13/15 MG (*)] Furosemide [Lasix 20 MG (*)] 20 mg PO DAILY #30 tab 02/25/16 Spironolactone [Aldactone 25 MG 25 mg PO DAILY #30 tab 02/25/16 (*)] Simvastatin [Zocor] 80 mg PO DAILY18 05/31/16 Pantoprazole Sodium [Protonix 40mg 40 mg PO BID #60 tab 07/08/16 (*)] Losartan Potassium [Cozaar 50 mg 50 mg PO DAILY 11/24/16 (*)] Rifaximin [Xifaxan] 550 mg PO BID 11/24/16 glipiZIDE [Glipizide] 5 mg PO BID 11/24/16 Insulin Detemir [Levemir] 15 unit SQ HS 11/25/16 Insulin Detemir [Levemir] 35 unit SQ DAILY 11/25/16 traMADol [Ultram 50 mg (*)] 50 mg PO Q6 PRN 11/25/16 Lactulose 20 gm PO BID 01/26/17 Ondansetron HCl [Zofran] 4 - 8 mg PO Q8H PRN 01/26/17 Medical Decision Making ED Course/Re-evaluation: Family at bedside state her condition of confusion is is often brought on by elevated ammonia levels due to the patient's liver cirrhosis. This is the most likely explanation for her encephalopathy and nausea/vomiting. However, she is an insulin-dependent diabetic and diabetic ketoacidosis with or without infection is also a possibility. She is not febrile. Urine is being obtained to assess for infection. She is hypertensive with a normal heart rate at the time of my exam. I do not suspect sepsis. Other etiologies of her nausea and vomiting include pancreatitis, cholecystitis, and gastritis. Ammonia not run despite order. Need to re-draw blood. Ammonia elevated at 187. All labs reviewed. She is noted to be anemic. Potassium is 5.4. BUN and creatinine are both elevated. LFTs and lipase are elevated. I have also reviewed previous lab values. 19:31 Spoke with hospitalist service. Dr. Encarnacion accepts admission for hepatic encephalopathy. Given her elevated potassium, she will be admitted to the PCU. Lactulose given orally in the emergency department for ammonemia. - Data Points Laboratory Results: Laboratory Results 01/26/17 17:42 01/26/17 17:42 01/26/17 01/26/17 01/26/17 18:58 17:42 17:42 WBC 2.93 10^3/uL L 10^3/uL (3.80-9.50) RBC 2.62 10^6/uL L 10^6/uL (4.18-5.33) Hgb 8.6 g/dL L g/dL (12.6-16.3) Hct 26.4 % L % (38.0-47.0) MCV 100.8 fL H fL (81.5-99.8) MCH 32.8 pg pg (27.9-34.1) MCHC 32.6 g/dL g/dL (32.4-36.7) RDW 14.5 % % (11.5-15.2) Plt Count 76 10^3/uL L 10^3/uL (150-400) MPV 12.3 fL H fL (8.7-11.7) Neut % (Auto) 68.3 % % (39.3-74.2) Lymph % (Auto) 21.2 % % (15.0-45.0) [place] % (Auto) 6.8 % % (4.5-13.0) Eos % (Auto) 3.1 % % (0.6-7.6) Baso % (Auto) 0.3 % % (0.3-1.7) Nucleat RBC Rel Count 0.0 % % (0.0-0.2) Absolute Neuts (auto) 2.00 10^3/uL 10^3/uL (1.70-6.50) Absolute Lymphs (auto) 0.62 10^3/uL L 10^3/uL (1.00-3.00) Absolute Monos (auto) 0.20 10^3/uL L 10^3/uL (0.30-0.80) Absolute Eos (auto) 0.09 10^3/uL 10^3/uL (0.03-0.40) Absolute Basos (auto) 0.01 10^3/uL L 10^3/uL (0.02-0.10) Absolute Nucleated RBC 0.00 10^3/uL 10^3/uL (0-0.01) Immature Gran % 0.3 % % (0.0-1.1) Immature Gran # 0.01 10^3/uL 10^3/uL (0.00-0.10) Sodium 136 mEq/L mEq/L (134-144) Potassium 5.4 mEq/L H mEq/L (3.5-5.2) Chloride 105 mEq/L mEq/L (97-110) Carbon Dioxide 22 mEq/l mEq/l (22-31) Anion Gap 9 mEq/L mEq/L (8-16) BUN 35 mg/dL H mg/dL (7-23) Creatinine 1.3 mg/dL H mg/dL (0.6-1.0) Estimated GFR 40 Glucose 235 mg/dL H mg/dL (70-100) Calcium 8.7 mg/dL mg/dL (8.5-10.4) Total Bilirubin 1.5 mg/dL H mg/dL (0.1-1.4) Conjugated Bilirubin 0.6 mg/dL H mg/dL (0.0-0.5) Unconjugated Bilirubin 0.9 mg/dL mg/dL (0.0-1.1) AST 58 IU/L H IU/L (14-46) ALT 62 IU/L H IU/L (9-52) Alkaline Phosphatase 780 IU/L H IU/L (38-126) Ammonia 187.0 uMOL/L H uMOL/L (9.0-30.0) Total Protein 6.5 g/dL g/dL (6.3-8.2) Albumin 2.9 g/dL L g/dL (3.5-5.0) Lipase 328.0 IU/L H IU/L (23-300) Medications Given: Discontinued Medications Sodium Chloride (Ns) 1,000 mls @ 0 mls/hr IV EDNOW ONE; Wide Open PRN Reason: Protocol Stop: 01/26/17 17:43 Last Admin: 01/26/17 17:50 Dose: 1,000 mls Lactulose (Cephulac) 30 gm PO EDNOW ONE Stop: 01/26/17 19:31 Last Admin: 01/26/17 19:41 Dose: 30 gm Ondansetron HCl (Zofran) 4 mg IVP EDNOW ONE Stop: 01/26/17 17:43 Last Admin: 01/26/17 17:50 Dose: 4 mg Departure - Departure Disposition: [facility] Inpatient Acute Clinical Impression: Hepatic encephalopathy Condition: Fair Report Scribed for: Oumou Joshi Report Scribed by: Vane Erickson Date of Report: 01/26/17 Time of Report: 19:39 Physician Review and Approval Statement: 01/26/17 17:33 Portions of this note were transcribed by the outside medical sales representative. I, Dr. Oumou Joshi, personally performed the history, physical exam, and medical decision- making; and confirmed the accuracy of the information in the transcribed note.
[2017-01-26] MEDS ORDERED: ONDANSETRON 4 MG/2 ML VIAL IVP ONE (17:42)
[2017-01-26] MEDS ORDERED: NS 1,000 ML IV ONE (17:42)
[2017-01-26 18:55] LABS: % IMMATURE GRANULYOCYTES 0.3 % (0.0-1.1); ABSOLUTE IMMATURE GRANULOCYTES 0.01 10^3/uL (0.00-0.10); ADD DIFF? NO; ADD MORPH? NO; ADD SCAN? NO; ATYPICAL LYMPHOCYTE FLAG 10 (0-99); FRAGMENT RBC FLAG 0 (0-99); HEMATOCRIT 26.4 % (38.0-47.0); HEMOGLOBIN 8.6 g/dL (12.6-16.3); LEFT SHIFT FLG 0 (0-99); LIPEMIA HEMOLYSIS FLAG 80 (0-99); MEAN CELL HEMOGLOBIN 32.8 pg (27.9-34.1); MEAN CELL HEMOGLOBIN CONCENTR. 32.6 g/dL (32.4-36.7); MEAN CELL VOLUME 100.8 fL (81.5-99.8); MEAN PLATELET VOLUME 12.3 fL (8.7-11.7); PLATELET CLUMPS FLAG 0 (0-99); PLATELET COUNT 76 10^3/uL (150-400); RED BLOOD CELL COUNT 2.62 10^6/uL (4.18-5.33); RED CELL DISTRIBUTION WIDTH 14.5 % (11.5-15.2)
[2017-01-26 19:00] LABS: ALANINE AMINOTRANSFERASE 62 IU/L (9-52); ALBUMIN 2.9 g/dL (3.5-5.0); ALKALINE PHOSPHATASE 780 IU/L (38-126); ANION GAP 9 mEq/L (8-16); ASPARTATE AMINOTRANSFERASE 58 IU/L (14-46); BILIRUBIN,TOTAL 1.5 mg/dL (0.1-1.4); BILIRUBIN-CONJUGATED 0.6 mg/dL (0.0-0.5); BILIRUBIN-UNCONJUGATED 0.9 mg/dL (0.0-1.1); CALCIUM 8.7 mg/dL (8.5-10.4); CARBON DIOXIDE 22 mEq/l (22-31); CHLORIDE 105 mEq/L (97-110); CREATININE 1.3 mg/dL (0.6-1.0); GLOMERULAR FILTRATION RATE 40; GLUCOSE 235 mg/dL (70-100); POTASSIUM 5.4 mEq/L (3.5-5.2); SODIUM 136 mEq/L (134-144); TOTAL PROTEIN 6.5 g/dL (6.3-8.2)
[2017-01-26] MEDS ORDERED: LACTULOSE 20 GM/30 ML UDCUP PO ONE (19:30)
[2017-01-26] MEDS ORDERED: ONDANSETRON 4 MG/2 ML VIAL IVP PRN (19:33)
[2017-01-26] MEDS ORDERED: ONDANSETRON DISINTEGRATING 4 MG TAB PO PRN (19:33)
[2017-01-26] MEDS ORDERED: NS 1,000 ML IV SCH (19:45)
[2017-01-26] MEDS ORDERED: D50W 25 GM/50 ML SYR IVP PRN (21:21)
--- NOTE | 2017-01-26 21:26 | PDGENHP ---
History and Physical - Chief Complaint Acute encephalopathy - History of Present Illness primary care provider: Dr. Rafael Clark HPI: 71-year-old female presents with acute encephalopathy characterized as confusion with associated nonbloody emesis with onset of symptoms on the morning of this presentation and duration persistent thereafter. per patient's [id number], the patient had been less mobile over the past week secondary to bilateral hip pain, left greater than right. Patient has been mostly bed- bound thereafter. They report she has been taking lactulose twice daily and been having regular nonbloody bowel movements. They deny any reports of abdominal pain, fever, chills. Patient reports that she has significant weakness in her right lower extremity. History Information - Allergies/Home Medication List Allergies/Adverse Reactions: insulin regular [Insulin Regular] Allergy (Verified 01/19/17 12:35) TONGUE NUMBNESS Penicillins Allergy (Verified 01/19/17 12:35) Rash Home Medications: Ferrous Sulfate [Ferrous Sulf 325 MG (*)] 325 mg PO DAILY 08/13/15 [Last Taken 01/26/17] Simvastatin [Zocor] 80 mg PO DAILY18 05/31/16 [Last Taken 01/25/17] Losartan Potassium [Cozaar 50 mg (*)] 50 mg PO DAILY 11/24/16 [Last Taken ] Rifaximin [Xifaxan] 550 mg PO BID 11/24/16 [Last Taken 01/26/17] glipiZIDE [Glipizide] 5 mg PO BID 11/24/16 [Last Taken 01/26/17] Insulin Detemir [Levemir] 15 unit SQ HS 11/25/16 [Last Taken 01/25/17] Insulin Detemir [Levemir] 35 unit SQ DAILY 11/25/16 [Last Taken 01/26/17] traMADol [Ultram 50 mg (*)] 50 mg PO Q6 PRN 11/25/16 [Last Taken 01/26/17] Lactulose 20 gm PO BID 01/26/17 [Last Taken 01/26/17] Ondansetron HCl [Zofran] 4 - 8 mg PO Q8H PRN 01/26/17 [Last Taken 01/25/17] I have personally reviewed and updated: family history, medical history, social history, surgical history - Past Medical History diabetes type 2, hypertension, hyperlipidemia Additional medical history: iron deficiency anemia. crytopgenic cirrhosis. pancytopenia - Surgical History Reports: hysterectomy Additional surgical history: multiple hip and abdominal surgeries that we do not have details about - Family History Additional family history: No family history of liver disease, no coronary artery disease - Social History Smoking Status: Never smoked Alcohol Use: None Drug Use: None Additional social history: lives independently, family members visit her twice per day, they encouraged her to take her medications twice per day, she is bed- bound presently Review of Systems ROS: 10pt was reviewed & negative except for what was stated in HPI & below Constitutional: Reports: weakness Gastrointestinal: Reports: vomitting Neurological: Reports: other ( encephalopathy) Physical Exam Temp Pulse Resp BP Pulse Ox 36.4 C 101 H 16 124/59 H 98 01/26/17 20:30 01/26/17 20:30 01/26/17 20:30 01/26/17 20:30 01/26/17 20:30 Constitutional: no apparent distress, not in pain, chronically ill appearing, obese, No uncomfortable Eyes: PERRL, anicteric sclera, EOMI Ears, Nose, Mouth, Throat: moist mucous membranes, hearing normal, ears appear normal, no oral mucosal ulcers Cardiovascular: regular rate and rhythym, systolic murmur ( 2/6 at the right sternal border and apex), edema ( trace bilateral lower extremity), No irregularly irregular, No tachycardia Respiratory: no respiratory distress, no rales or rhonchi, clear to auscultation , other ( poor inspiratory effort) Gastrointestinal: normoactive bowel sounds, ascites, No tenderness, No guarding , No distension Skin: warm, normal color, no rashes or abrasions, no fluctuance, no induration, No mottled Musculoskeletal: other ( tenderness over the left lateral trochanter, range of motion pain in the left hip, no pain with range of motion right hip) Neurologic: weakness ( 2/5 motor strength right lower extremity), asterixes, other ( alert awake oriented x1 only to place) Psychiatric: not anxious, encephalopathic, flat affect, other ( unable to follow most commands), No agitated Lab Data & Imaging Review 01/26/17 17:42 01/26/17 17:42 WBC 2.93 10^3/uL (3.80-9.50) L 01/26/17 17:42 RBC 2.62 10^6/uL (4.18-5.33) L 01/26/17 17:42 Hgb 8.6 g/dL (12.6-16.3) L 01/26/17 17:42 Hct 26.4 % (38.0-47.0) L 01/26/17 17:42 MCV 100.8 fL (81.5-99.8) H 01/26/17 17:42 MCH 32.8 pg (27.9-34.1) 01/26/17 17:42 MCHC 32.6 g/dL (32.4-36.7) 01/26/17 17:42 RDW 14.5 % (11.5-15.2) 01/26/17 17:42 Plt Count 76 10^3/uL (150-400) L 01/26/17 17:42 MPV 12.3 fL (8.7-11.7) H 01/26/17 17:42 Neut % (Auto) 68.3 % (39.3-74.2) 01/26/17 17:42 Lymph % (Auto) 21.2 % (15.0-45.0) 01/26/17 17:42 Hyde % (Auto) 6.8 % (4.5-13.0) 01/26/17 17:42 Eos % (Auto) 3.1 % (0.6-7.6) 01/26/17 17:42 Baso % (Auto) 0.3 % (0.3-1.7) 01/26/17 17:42 Nucleat RBC Rel Count 0.0 % (0.0-0.2) 01/26/17 17:42 Absolute Neuts (auto) 2.00 10^3/uL (1.70-6.50) 01/26/17 17:42 Absolute Lymphs (auto) 0.62 10^3/uL (1.00-3.00) L 01/26/17 17:42 Absolute Monos (auto) 0.20 10^3/uL (0.30-0.80) L 01/26/17 17:42 Absolute Eos (auto) 0.09 10^3/uL (0.03-0.40) 01/26/17 17:42 Absolute Basos (auto) 0.01 10^3/uL (0.02-0.10) L 01/26/17 17:42 Absolute Nucleated RBC 0.00 10^3/uL (0-0.01) 01/26/17 17:42 Immature Gran % 0.3 % (0.0-1.1) 01/26/17 17:42 Immature Gran # 0.01 10^3/uL (0.00-0.10) 01/26/17 17:42 Sodium 136 mEq/L (134-144) 01/26/17 17:42 Potassium 5.4 mEq/L (3.5-5.2) H 01/26/17 17:42 Chloride 105 mEq/L (97-110) 01/26/17 17:42 Carbon Dioxide 22 mEq/l (22-31) 01/26/17 17:42 Anion Gap 9 mEq/L (8-16) 01/26/17 17:42 BUN 35 mg/dL (7-23) H 01/26/17 17:42 Creatinine 1.3 mg/dL (0.6-1.0) H 01/26/17 17:42 Estimated GFR 40 01/26/17 17:42 Glucose 235 mg/dL (70-100) H 01/26/17 17:42 Calcium 8.7 mg/dL (8.5-10.4) 01/26/17 17:42 Total Bilirubin 1.5 mg/dL (0.1-1.4) H 01/26/17 17:42 Conjugated Bilirubin 0.6 mg/dL (0.0-0.5) H 01/26/17 17:42 Unconjugated Bilirubin 0.9 mg/dL (0.0-1.1) 01/26/17 17:42 AST 58 IU/L (14-46) H 01/26/17 17:42 ALT 62 IU/L (9-52) H 01/26/17 17:42 Alkaline Phosphatase 780 IU/L (38-126) H 01/26/17 17:42 Ammonia 187.0 uMOL/L (9.0-30.0) H 01/26/17 18:58 Total Protein 6.5 g/dL (6.3-8.2) 01/26/17 17:42 Albumin 2.9 g/dL (3.5-5.0) L 01/26/17 17:42 Lipase 328.0 IU/L (23-300) H 01/26/17 17:42 Assessment & Plan Assessment: 71-year-old female presents with acute hepatic encephalopathy, acute hyperkalemia, and acute kidney injury in the setting of end-stage liver disease Plan: 1. Hepatic encephalopathy. Acute, without coma, evidenced by asterixis, ammonia level of 187, encephalopathy with poor concentration, inability to follow commands, disorientation, somnolence -may be secondary to under dosing of lactulose at home, being given twice per day by family, but patient may not be taking the 3rd dose at night -will give 2 doses tonight, continue at 3 times daily dosing 2. Acute hyperkalemia. Secondary to renal dysfunction, give IV fluids, monitor on telemetry, repeat level in a.m. and give Lasix 3. Acute kidney injury. New problem this provider, secondary to hypovolemia and poor oral intake over the past several days per family -give IV normal saline, monitor strict I&Os, daily weights, serum creatinine level in a.m. -reviewed outside records including 01/19/2017 emergency department encounter, at which time her serum creatinine level was 1.1, most likely indicating this has been evolving over the past week 4. Pancytopenia. Chronic, secondary to end-stage liver disease, continue monitor, no transfusion indicated 5. End-stage liver disease. Chronic, secondary to cryptogenic cirrhosis, patient has portal hypertension and varices with history of GI bleed -high risk patient, administer SBP prophylaxis with renally dosed ciprofloxacin x5 days -patient's functional status continues to decline and she has had recurrent hospitalizations for hepatic encephalopathy -now the patient is mostly bed-bound, I would recommend palliative consultation prior to her leaving this hospital so her family understands was support is available for the patient now that she is nearing end of life -reassess her volume status tomorrow to determine whether to reinitiate her home diuretic doses ensure that she does not begin retaining too much fluid 6. Hip pain. Acute on chronic, reviewed Dr. Wild emergency department report from 01/19/2017, at that time the patient presented unable to ambulate but had no fracture demonstrated on x-ray, has prosthesis in the left which was well-seated, was able to ambulate and leave the emergency department without intervention -I believe further evaluation is indicated given that the patient is not a surgical candidate with all of her above issues and most appropriate approach is palliative -will administer Lidoderm patches bilateral hips, avoid narcotics given risk of over-sedation in the setting of hepatic encephalopathy -is unclear why she has such profound weakness in her right lower extremity, other than it may be from deconditioning the setting of recent osteoarthritic pain -will hold off on further neuro imaging given that, again, additional testing or diagnoses would not ultimately alter this patient's prognosis Diet. Renal Prophylaxis. High risk patient, SCDs given GI bleed Code. Full Disposition. Anticipated discharge uncertain this time, anticipated length stay is greater than 48 hours warranting inpatient admission status for acute hepatic encephalopathy with high risk and high complexity medical comorbidities , requiring further workup and treatment. I discussed her presentation with Dr. Oumou Joshi, we both agreed the patient requires inpatient admission for reasonable medical necessity.
[2017-01-26 22:33] LABS: COLOR YELLOW; LEUKOCYTE ESTERASE,URINE NEGATIVE (NEGATIVE); NITRITE,URINE NEGATIVE (NEGATIVE)
[2017-01-26] MEDS: CIPROFLOXACIN 200 MG/DEXTROSE 100 ML IV SCH (22:45)
[2017-01-26] MEDS: RIFAXIMIN 550 MG TAB PO SCH (22:47)
[2017-01-26] MEDS: PANTOPRAZOLE SODIUM 40 MG TAB PO SCH (22:47)
[2017-01-26] MEDS: LACTULOSE 20 GM/30 ML UDCUP PO SCH (22:47)
[2017-01-26] MEDS: LIDOCAINE 5% 1 EA PATCH TD SCH (22:47)
[2017-01-27 04:10] LABS: % IMMATURE GRANULYOCYTES 0.4 % (0.0-1.1); ABSOLUTE IMMATURE GRANULOCYTES 0.01 10^3/uL (0.00-0.10); ADD DIFF? NO; ADD MORPH? NO; ADD SCAN? NO; ATYPICAL LYMPHOCYTE FLAG 20 (0-99); FRAGMENT RBC FLAG 0 (0-99); HEMOGLOBIN 7.5 g/dL (12.6-16.3); LEFT SHIFT FLG 0 (0-99); LIPEMIA HEMOLYSIS FLAG 80 (0-99); MEAN CELL HEMOGLOBIN 32.5 pg (27.9-34.1); MEAN CELL HEMOGLOBIN CONCENTR. 32.6 g/dL (32.4-36.7); MEAN CELL VOLUME 99.6 fL (81.5-99.8); MEAN PLATELET VOLUME 11.9 fL (8.7-11.7); PLATELET CLUMPS FLAG 10 (0-99); PLATELET COUNT 69 10^3/uL (150-400); RED BLOOD CELL COUNT 2.31 10^6/uL (4.18-5.33); RED CELL DISTRIBUTION WIDTH 14.6 % (11.5-15.2)
[2017-01-27 04:17] LABS: ALANINE AMINOTRANSFERASE 55 IU/L (9-52); ALBUMIN 2.5 g/dL (3.5-5.0); ALKALINE PHOSPHATASE 606 IU/L (38-126); ANION GAP 8 mEq/L (8-16); ASPARTATE AMINOTRANSFERASE 46 IU/L (14-46); BILIRUBIN,TOTAL 1.4 mg/dL (0.1-1.4); CALCIUM 8.4 mg/dL (8.5-10.4); CARBON DIOXIDE 20 mEq/l (22-31); CHLORIDE 112 mEq/L (97-110); CREATININE 1.1 mg/dL (0.6-1.0); GLOMERULAR FILTRATION RATE 49; GLUCOSE 139 mg/dL (70-100); POTASSIUM 4.9 mEq/L (3.5-5.2); SODIUM 140 mEq/L (134-144); TOTAL PROTEIN 5.6 g/dL (6.3-8.2)
[2017-01-27] MEDS: INSULIN LISPRO 100 UNIT/ML SC SCH ×3 (09:15→18:07)
[2017-01-27 09:30] LABS: INR 1.31 (0.83-1.16); PROTIME(PATIENT) 16.3 SEC (12.0-15.0)
[2017-01-27] MEDS: LACTULOSE 20 GM/30 ML UDCUP PO SCH ×3 (09:49→20:08)
[2017-01-27] MEDS: CIPROFLOXACIN 200 MG/DEXTROSE 100 ML IV SCH (09:49)
[2017-01-27] MEDS: PANTOPRAZOLE SODIUM 40 MG TAB PO SCH ×3 (09:50→20:07)
[2017-01-27] MEDS: FUROSEMIDE 20 MG/2 ML VIAL IVP SCH (09:50)
[2017-01-27] MEDS: RIFAXIMIN 550 MG TAB PO SCH ×3 (09:50→20:07)
[2017-01-27] MEDS: FERROUS SULFATE 325 MG TAB PO SCH ×2 (09:50→11:05)
[2017-01-27] MEDS: ATORVASTATIN CALCIUM 40 MG TAB PO SCH ×2 (10:21→18:08)
[2017-01-27] MEDS: LIDOCAINE 5% 1 EA PATCH TD SCH (11:04)
--- NOTE | 2017-01-27 15:51 | HOSPPROG ---
Hospitalist Progress Note Assessment/Plan: 71 yo with advanced cryptogenic cirrhosis associated with his cephalopathy and esophageal varices status post banding is admitted with altered mental status. She apparently had been declining over the last several days she had complained about bilateral hip pain became bed-bound and then more confused. She has a history similarly in her last admission where she had acute hepatic encephalopathy which responded well to treatment with lactulose # hepatic encephalopathy: Has only had 1 large bowel movement today will continue lactulose and Xifaxan and follow mental status. # advanced cryptogenic cirrhosis with fairly normal LFTs but elevated INR. She also has a history of esophageal varices. * Continue to monitor LFTs and protime * Treat encephalopathy as above * Will discontinue Cipro for prophylaxis and add ceftriaxone * Patient has allergy to penicillin however Cipro may cause worsening mental status changes and will watch for rash with ceftriaxone # hip pain, bilateral cannot obtain good history at this time will get pelvic CT scan without contrast # type 2 diabetes monitor blood sugars # iron deficiency anemia, chronic # pancytopenia likely secondary to her cirrhosis will continue to monitor and hold on transfusion at this time. Subjective: Patient still somewhat confused although slightly better than yesterday will continue to monitor her mental status Objective: Vital Signs Temp Pulse Resp BP Pulse Ox 37.3 C 108 H 18 151/52 H 99 01/27/17 15:22 01/27/17 15:22 01/27/17 15:22 01/27/17 15:22 01/27/17 15:22 Laboratory Results 01/27/17 03:30 01/27/17 03:30 01/26/17 01/27/17 01/28/17 05:59 05:59 05:59 Intake Total 2205 500 Output Total 500 1000 Balance 1705 -500 PT 16.3 SEC (12.0-15.0) H 01/27/17 09:10 INR 1.31 (0.83-1.16) H 01/27/17 09:10 - Physical Exam Constitutional: no apparent distress Eyes: PERRL, EOMI Ears, Nose, Mouth, Throat: moist mucous membranes Cardiovascular: regular rate and rhythym Respiratory: no respiratory distress, reduced air movement Gastrointestinal: soft, non-tender abdomen, No normoactive bowel sounds Genitourinary: no bladder fullness Skin: warm Musculoskeletal: generalized weakness Neurologic: No AAOx3, No facial droop Psychiatric: encephalopathic ICD10 Worksheet Patient Problems: Problems Problem Status Onset Hepatic encephalopathy Acute Altered mental status Acute Altered mental status Acute Anemia Acute Cirrhosis Acute Diabetes Acute Diarrhea Acute Encephalopathy Acute Hematemesis Acute Upper GI bleed Acute
[2017-01-27] MEDS: PATCH REMOVAL 1 EA PATCH TD SCH (20:07)
[2017-01-28 05:21] LABS: ADD DIFF? NO; ADD MORPH? NO; ADD SCAN? NO; ATYPICAL LYMPHOCYTE FLAG 20 (0-99); FRAGMENT RBC FLAG 0 (0-99); HEMATOCRIT 23.3 % (38.0-47.0); HEMOGLOBIN 7.5 g/dL (12.6-16.3); LEFT SHIFT FLG 0 (0-99); LIPEMIA HEMOLYSIS FLAG 80 (0-99); MEAN CELL HEMOGLOBIN 32.9 pg (27.9-34.1); MEAN CELL HEMOGLOBIN CONCENTR. 32.2 g/dL (32.4-36.7); MEAN CELL VOLUME 102.2 fL (81.5-99.8); PLATELET CLUMPS FLAG 10 (0-99); PLATELET COUNT 79 10^3/uL (150-400); RED BLOOD CELL COUNT 2.28 10^6/uL (4.18-5.33); RED CELL DISTRIBUTION WIDTH 14.8 % (11.5-15.2)
[2017-01-28 05:29] LABS: INR 1.34 (0.83-1.16); PROTIME(PATIENT) 16.6 SEC (12.0-15.0)
[2017-01-28 05:40] LABS: ALANINE AMINOTRANSFERASE 51 IU/L (9-52); ALBUMIN 2.3 g/dL (3.5-5.0); ALKALINE PHOSPHATASE 602 IU/L (38-126); ANION GAP 10 mEq/L (8-16); ASPARTATE AMINOTRANSFERASE 60 IU/L (14-46); BILIRUBIN,TOTAL 1.4 mg/dL (0.1-1.4); CALCIUM 8.2 mg/dL (8.5-10.4); CARBON DIOXIDE 16 mEq/l (22-31); CHLORIDE 113 mEq/L (97-110); CREATININE 0.9 mg/dL (0.6-1.0); GLOMERULAR FILTRATION RATE > 60; GLUCOSE 364 mg/dL (70-100); POTASSIUM 4.4 mEq/L (3.5-5.2); SODIUM 139 mEq/L (134-144); TOTAL PROTEIN 5.4 g/dL (6.3-8.2)
[2017-01-28] MEDS: FUROSEMIDE 20 MG/2 ML VIAL IVP SCH (08:17)
[2017-01-28] MEDS: INSULIN LISPRO 100 UNIT/ML SC SCH ×3 (08:17→17:51)
[2017-01-28] MEDS: FERROUS SULFATE 325 MG TAB PO SCH (08:17)
[2017-01-28] MEDS: PANTOPRAZOLE SODIUM 40 MG TAB PO SCH ×2 (08:17→20:04)
[2017-01-28] MEDS: RIFAXIMIN 550 MG TAB PO SCH ×2 (08:17→20:04)
[2017-01-28] MEDS: LACTULOSE 20 GM/30 ML UDCUP PO SCH ×3 (08:18→20:04)
[2017-01-28] MEDS: LIDOCAINE 5% 1 EA PATCH TD SCH (09:17)
--- NOTE | 2017-01-28 10:45 | HOSPPROG ---
Hospitalist Progress Note Assessment/Plan: 71 yo with advanced cryptogenic cirrhosis associated with his cephalopathy and esophageal varices status post banding is admitted with altered mental status. She apparently had been declining over the last several days she had complained about bilateral hip pain became bed-bound and then more confused. She has a history similarly in her last admission where she had acute hepatic encephalopathy which responded well to treatment with lactulose # hepatic encephalopathy: Improving today, will continue current medications and follow # advanced cryptogenic cirrhosis with fairly normal LFTs but elevated INR. She also has a history of esophageal varices. * Continue to monitor LFTs and protime * Treat encephalopathy as above * Will discontinue Cipro for prophylaxis and add ceftriaxone * Patient has allergy to penicillin however Cipro may cause worsening mental status changes and will watch for rash with ceftriaxone # hip pain, CT negative for cause of pain. She does have a history of chronic back pain and likely this is referred pain. # chronic back pain, patient states her pain has been stable and not worse than normal. She did have some difficulty ambulating today and will continue to monitor her closely it is unclear if it is related to her encephalopathy and understanding or her back. She denies any numbness or weakness. # type 2 diabetes monitor blood sugars, has had elevated blood glucoses will increase her insulin. # iron deficiency anemia, chronic # pancytopenia likely secondary to her cirrhosis will continue to monitor and hold on transfusion at this time. Subjective: Much more alert today oriented x2. I suspect she will need inpatient rehab/snf rehab on discharge will discuss with her family Objective: Vital Signs Temp Pulse Resp BP Pulse Ox 36.5 C 108 H 20 145/56 H 98 01/28/17 07:08 01/28/17 07:08 01/28/17 07:08 01/28/17 07:08 01/28/17 07:08 Laboratory Results 01/28/17 04:06 01/28/17 04:06 01/27/17 01/28/17 01/29/17 05:59 05:59 05:59 Intake Total 2205 4174 240 Output Total 500 1000 900 Balance 1705 3174 -660 PT 16.6 SEC (12.0-15.0) H 01/28/17 04:06 INR 1.34 (0.83-1.16) H 01/28/17 04:06 - Physical Exam Constitutional: chronically ill appearing, uncomfortable Eyes: PERRL, EOMI Ears, Nose, Mouth, Throat: moist mucous membranes, ears appear normal Cardiovascular: regular rate and rhythym, no murmur, rub, or gallop Respiratory: no respiratory distress, reduced air movement, No inspiratory crackles Gastrointestinal: normoactive bowel sounds, ascites, distension, No tenderness Genitourinary: no bladder fullness Skin: warm Musculoskeletal: abnormal gait, generalized weakness Neurologic: weakness, No AAOx3, No numbness Psychiatric: other (Improved slightly encephalopathic but much more appropriate today) Lymph, Heme, Immunologic: no cervical LAD ICD10 Worksheet Patient Problems: Problems Problem Status Onset Anemia Acute Encephalopathy Acute Diabetes Acute Cirrhosis Acute Altered mental status Acute Hepatic encephalopathy Acute Hematemesis Acute Upper GI bleed Acute Diarrhea Acute Altered mental status Acute
[2017-01-28] MEDS: ATORVASTATIN CALCIUM 40 MG TAB PO SCH (17:51)
[2017-01-28] MEDS: PATCH REMOVAL 1 EA PATCH TD SCH (20:05)
[2017-01-29 05:07] LABS: ADD DIFF? NO; ADD MORPH? NO; ADD SCAN? NO; ATYPICAL LYMPHOCYTE FLAG 0 (0-99); FRAGMENT RBC FLAG 0 (0-99); HEMOGLOBIN 7.4 g/dL (12.6-16.3); LEFT SHIFT FLG 0 (0-99); LIPEMIA HEMOLYSIS FLAG 80 (0-99); MEAN CELL HEMOGLOBIN 32.6 pg (27.9-34.1); MEAN CELL HEMOGLOBIN CONCENTR. 32.2 g/dL (32.4-36.7); MEAN CELL VOLUME 101.3 fL (81.5-99.8); MEAN PLATELET VOLUME 12.1 fL (8.7-11.7); PLATELET CLUMPS FLAG 0 (0-99); PLATELET COUNT 70 10^3/uL (150-400); RED BLOOD CELL COUNT 2.27 10^6/uL (4.18-5.33); RED CELL DISTRIBUTION WIDTH 14.7 % (11.5-15.2)
[2017-01-29 05:22] LABS: ALANINE AMINOTRANSFERASE 50 IU/L (9-52); ALBUMIN 2.2 g/dL (3.5-5.0); ALKALINE PHOSPHATASE 585 IU/L (38-126); ANION GAP 7 mEq/L (8-16); ASPARTATE AMINOTRANSFERASE 51 IU/L (14-46); BILIRUBIN,TOTAL 1.4 mg/dL (0.1-1.4); CALCIUM 8.7 mg/dL (8.5-10.4); CARBON DIOXIDE 19 mEq/l (22-31); CHLORIDE 111 mEq/L (97-110); CREATININE 0.8 mg/dL (0.6-1.0); GLOMERULAR FILTRATION RATE > 60; GLUCOSE 230 mg/dL (70-100); SODIUM 137 mEq/L (134-144); TOTAL PROTEIN 5.5 g/dL (6.3-8.2)
[2017-01-29] MEDS: INSULIN LISPRO 100 UNIT/ML SC SCH ×3 (08:12→17:25)
[2017-01-29] MEDS: FERROUS SULFATE 325 MG TAB PO SCH (09:57)
[2017-01-29] MEDS: LACTULOSE 20 GM/30 ML UDCUP PO SCH ×3 (09:58→21:41)
[2017-01-29] MEDS: PANTOPRAZOLE SODIUM 40 MG TAB PO SCH ×2 (09:58→21:41)
[2017-01-29] MEDS: RIFAXIMIN 550 MG TAB PO SCH ×2 (09:58→21:41)
[2017-01-29] MEDS: FUROSEMIDE 20 MG/2 ML VIAL IVP SCH (09:58)
[2017-01-29] MEDS: LIDOCAINE 5% 1 EA PATCH TD SCH (09:59)
--- NOTE | 2017-01-29 10:49 | HOSPPROG ---
Hospitalist Progress Note Assessment/Plan: 71 yo with advanced cryptogenic cirrhosis associated with his encephalopathy and esophageal varices status post banding is admitted with altered mental status. She apparently had been declining over the last several days she had complained about bilateral hip pain became bed-bound and then more confused. She has a history similarly in her last admission where she had acute hepatic encephalopathy which responded well to treatment with lactulose # hepatic encephalopathy: Improving today, But still encephalopathic. will continue current medications and follow # advanced cryptogenic cirrhosis with fairly normal LFTs but elevated INR. She also has a history of esophageal varices. * Continue to monitor LFTs and protime * Treat encephalopathy as above * Will discontinue Cipro for prophylaxis and add ceftriaxone * Patient has allergy to penicillin however Cipro may cause worsening mental status changes and will watch for rash with ceftriaxone * overall poor prognosis with recurrent encephalopathy. I discussed this with the son at the bedside and feel that a palliative care consult would be appropriate. The patient herself has unrealistic expectations of getting well again. # hip pain, CT negative for cause of pain. She does have a history of chronic back pain and likely this is referred pain. # chronic back pain, patient states her pain has been stable and not worse than normal. She is very immobile and is a 2 person assist currently. She did have some difficulty ambulating today and will continue to monitor her closely it is unclear if it is related to her encephalopathy and understanding or her back. She denies any numbness or weakness. given her mental status she is high risk for sedation and will likely need sedation for an MRI * check plain films. * If patient improved significantly and continues to have back pain and mobility issues could consider MRI in the future # type 2 diabetes monitor blood sugars, has had elevated blood glucoses will increase her insulin. # iron deficiency anemia, chronic # pancytopenia likely secondary to her cirrhosis will continue to monitor and hold on transfusion at this time. Subjective: Patient more alert however still not at baseline per son. She complains of back pain which limits her mobility although she is slightly improved from yesterday. Her pain radiates to her left hip. CT of her hip / pelvic 6 normal Objective: Vital Signs Temp Pulse Resp BP Pulse Ox 37.0 C 104 H 18 147/60 H 96 01/29/17 07:30 01/29/17 07:30 01/29/17 07:30 01/29/17 07:30 01/29/17 07:30 Laboratory Results 01/29/17 03:49 01/29/17 03:49 01/28/17 01/29/17 01/30/17 05:59 05:59 05:59 Intake Total 4174 490 Output Total 1000 2750 1200 Balance 3174 -2260 -1200 PT 16.6 SEC (12.0-15.0) H 01/28/17 04:06 INR 1.34 (0.83-1.16) H 01/28/17 04:06 - Physical Exam Constitutional: chronically ill appearing, obese, uncomfortable Eyes: PERRL, EOMI Ears, Nose, Mouth, Throat: moist mucous membranes Cardiovascular: regular rate and rhythym, no murmur, rub, or gallop Respiratory: no respiratory distress, no rales or rhonchi, clear to auscultation Gastrointestinal: normoactive bowel sounds, ascites, distension Genitourinary: no bladder fullness Skin: warm, normal color Musculoskeletal: abnormal gait, generalized weakness, No joint tenderness Neurologic: No AAOx3, No facial droop Psychiatric: encephalopathic ICD10 Worksheet Patient Problems: Problems Problem Status Onset Anemia Acute Encephalopathy Acute Diabetes Acute Cirrhosis Acute Altered mental status Acute Hepatic encephalopathy Acute Hematemesis Acute Upper GI bleed Acute Diarrhea Acute Altered mental status Acute
[2017-01-29] MEDS: INSULIN GLARGINE 100 UNITS/ML SYRINGE SC SCH (13:39)
[2017-01-29] MEDS: ATORVASTATIN CALCIUM 40 MG TAB PO SCH (17:25)
[2017-01-29] MEDS: PATCH REMOVAL 1 EA PATCH TD SCH (21:41)
[2017-01-30 04:38] LABS: HEMATOCRIT 22.5 % (38.0-47.0); HEMOGLOBIN 7.4 g/dL (12.6-16.3); MEAN CELL HEMOGLOBIN CONCENTR. 32.9 g/dL (32.4-36.7); MEAN CELL VOLUME 100.4 fL (81.5-99.8); RED BLOOD CELL COUNT 2.24 10^6/uL (4.18-5.33); RED CELL DISTRIBUTION WIDTH 14.7 % (11.5-15.2)
[2017-01-30 04:46] LABS: INR 1.41 (0.83-1.16); PROTIME(PATIENT) 17.2 SEC (12.0-15.0)
[2017-01-30 04:59] LABS: ALANINE AMINOTRANSFERASE 52 IU/L (9-52); ALBUMIN 2.4 g/dL (3.5-5.0); ALKALINE PHOSPHATASE 619 IU/L (38-126); ANION GAP 8 mEq/L (8-16); ASPARTATE AMINOTRANSFERASE 53 IU/L (14-46); BILIRUBIN,TOTAL 1.4 mg/dL (0.1-1.4); CALCIUM 8.1 mg/dL (8.5-10.4); CARBON DIOXIDE 19 mEq/l (22-31); CHLORIDE 111 mEq/L (97-110); CREATININE 0.8 mg/dL (0.6-1.0); GLOMERULAR FILTRATION RATE > 60; GLUCOSE 172 mg/dL (70-100); POTASSIUM 3.7 mEq/L (3.5-5.2); SODIUM 138 mEq/L (134-144); TOTAL PROTEIN 5.6 g/dL (6.3-8.2)
[2017-01-30] MEDS: RIFAXIMIN 550 MG TAB PO SCH ×2 (09:15→20:07)
[2017-01-30] MEDS: FERROUS SULFATE 325 MG TAB PO SCH (09:15)
[2017-01-30] MEDS: LIDOCAINE 5% 1 EA PATCH TD SCH (09:15)
[2017-01-30] MEDS: LACTULOSE 20 GM/30 ML UDCUP PO SCH ×3 (09:15→20:08)
[2017-01-30] MEDS: PANTOPRAZOLE SODIUM 40 MG TAB PO SCH ×2 (09:16→20:07)
[2017-01-30] MEDS: INSULIN GLARGINE 100 UNITS/ML SYRINGE SC SCH (09:16)
[2017-01-30] MEDS: INSULIN LISPRO 100 UNIT/ML SC SCH ×3 (09:16→17:03)
[2017-01-30] MEDS: FUROSEMIDE 20 MG/2 ML VIAL IVP SCH (09:16)
--- NOTE | 2017-01-30 14:37 | HOSPPROG ---
Hospitalist Progress Note Assessment/Plan: 71 yo with advanced cryptogenic cirrhosis associated with his encephalopathy and esophageal varices status post banding is admitted with altered mental status. She apparently had been declining over the last several days she had complained about bilateral hip pain became bed-bound and then more confused. She has a history similarly in her last admission where she had acute hepatic encephalopathy which responded well to treatment with lactulose. # hepatic encephalopathy: Very slow improvement over her hospitalization. Today is the 1st day when she seems alert and oriented. Will likely need an additional day of therapy since she has refused skilled rehab and will go home with home care. * Continue PT OT * Recommendations are for skilled rehab however the family would prefer to take her home with services. * Today is the 1st stay she has been able to get up and go to the bathroom on her own, I feel she would benefit from an additional day of physical therapy. * Continue lactulose and Xifaxan # advanced cryptogenic cirrhosis with fairly normal LFTs but elevated INR. She also has a history of esophageal varices. * Continue to monitor LFTs and protime * Treat encephalopathy as above * Continue ceftriaxone while in hospital for prophylaxis for SBP. She will be status post 6-7 days at discharge and will not need further antibiotics at that time # hip pain, CT negative for cause of pain. She does have a history of chronic back pain and likely this is referred pain. # chronic back pain, patient states her pain has been stable and not worse than normal. She has been very immobile here in the hospital, today is the 1st a she has not needed a 2 person assist. X-ray shows L2 compression fracture, unclear how old this is. Would recommend ongoing physical therapy rather than any invasive procedures given her comorbidities. * Continue physical therapy, patient would benefit from home care # type 2 diabetes monitor blood sugars, has had elevated blood glucoses will increase her insulin. # iron deficiency anemia, chronic. Given patient weakness and ongoing anemia will transfuse 1 unit today hopefully improve her functional status. # pancytopenia likely secondary to her cirrhosis will continue to monitor and hold on transfusion at this time. disposition: Have met with the family and family also met with palliative Care. Plan will be to discharge the patient home with home care they will set up 24 hour home care with family members. Given her improvement over the last 24 hours I feel she will likely be ready for discharge in the next 1-2 days as long as her mobility continues to improve. The family or patient are not ready for hospice at this time and did fill out a most form. She would like ongoing care as needed for acute medical issues however she is a do not resuscitate. Subjective: Patient feeling better. More clear in oriented today. Able to ambulate today for the 1st time. Still needs standby assist. Objective: Vital Signs Temp Pulse Resp BP Pulse Ox 36.4 C 99 18 116/49 L 97 01/30/17 11:15 01/30/17 11:15 01/30/17 11:15 01/30/17 11:15 01/30/17 11:15 Laboratory Results 01/30/17 03:54 01/30/17 03:54 01/29/17 01/30/17 01/31/17 05:59 05:59 05:59 Intake Total 490 1140 Output Total 2750 3500 1250 Balance -2260 -2360 -1250 PT 17.2 SEC (12.0-15.0) H 01/30/17 03:54 INR 1.41 (0.83-1.16) H 01/30/17 03:54 - Physical Exam Constitutional: obese, uncomfortable Eyes: PERRL Ears, Nose, Mouth, Throat: moist mucous membranes Cardiovascular: regular rate and rhythym Respiratory: no respiratory distress, clear to auscultation Gastrointestinal: normoactive bowel sounds, ascites Genitourinary: no bladder fullness Skin: warm Neurologic: AAOx3, asterixes Psychiatric: interacting appropriately, not anxious, not encephalopathic ICD10 Worksheet Patient Problems: Problems Problem Status Onset Anemia Acute Encephalopathy Acute Diabetes Acute Cirrhosis Acute Altered mental status Acute Hepatic encephalopathy Acute Hematemesis Acute Upper GI bleed Acute Diarrhea Acute Altered mental status Acute
--- NOTE | 2017-01-30 15:48 | PDPCPN ---
Palliative Care Progress Note Assessment/Plan: Referring provider: Dr Post Reason for consult: Complex medical decision making Symptom control HPI: Fariba Molina is a 71 yo female with PMH cryptogenic cirrhosis, DM, esophageal varices, portal hypertension, and hepatic encephalopathy admitted to the hospital with increased confusion and non bloody emesis. Ammonia level 187 on admission. This is her 3rd admit this year for complications due to liver failure. Started on her alexis lactulose with improvement in function. Continues to be weak and requires increase in care at discharge. Palliative care consulted for complex medical decision making. Met with angel Tabor with Hebrew interrupter at the bedside this afternoon. Fariba states she is feeling better and much more awake/alert. Leander agrees she is almost back to her baseline mentally but still a little weak. We discussed why she was here in the hospital and Fariba was able to state she was here because of her ammonia level being too high. We discussed her liver disease with her understanding the liver is damaged but with medications we can hope for a period of stabilization in her chronic disease. Fariba states what matters most to her is being at home around family. 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 She hopes to live longer. She states if she were not able to recover, she would not want to be kept alive on machines and would instead want to allow for a natural . She would still want to come back to the hospital for further treatment if needed. We filled out MDPOA form as well as MOST form. Discussing code status Fariba prefers a natural course of if her heart were to stop. She would still want medical interventions in the future especially if she would have a good outcome/recovery. Assessment: Physical: - Pain: chronic back/hip pain -lidoderm patch - weakness: - getting unit of blood today - PT/OT seeing - nursing support Emotional/psychological: Acute confusion: improved - continue lactulose Advanced Care Planning: Is patient decisional?: Yes Code Status: DNR/DNI- selective measures POLeroy: Angel Tabor is MDPOA. Plan: Fariba hopes to live longer. She would like medical interventions if she would make a good recovery but if there "was no hope of recovery" then she would not want life prolonging measures. 01/30/17 15:57 Subjective: I'm feeling much better today Objective: Social History: Lives alone but has family care for her daily. Son is local and very involved. Likes to knit and do other crafts. Used to bake wedding cakes and specialty cakes. Medication list reviewed ROS: General: fatigue, weakness ENT: negative Resp: negative GI: negative : negative MS: hip pain- chronic Skin: negative Neuro: negative Psych: negative Functional assessment: PPS: 50% Functional status: needs some assistance with ADLs. Vital Signs Temp Pulse Resp BP Pulse Ox 36.8 C 96 18 145/61 H 99 01/30/17 14:50 01/30/17 14:50 01/30/17 14:50 01/30/17 14:50 01/30/17 14:50 Laboratory Results 01/30/17 03:54 01/30/17 03:54 01/29/17 01/30/17 01/31/17 05:59 05:59 05:59 Intake Total 490 1140 Output Total 2750 3500 1250 Balance -2260 -2360 -1250 PT 17.2 SEC (12.0-15.0) H 01/30/17 03:54 INR 1.41 (0.83-1.16) H 01/30/17 03:54 Physical Exam - Physical Exam General Appearance: alert, no apparent distress Respiratory: No respiratory distress, No accessory muscle use Skin: normal color, warm/dry Extremities: No pedal edema Neuro/Psych: alert, oriented x 3 ICD10 Worksheet Patient Problems: Problems Problem Status Onset Hepatic encephalopathy Acute Palliative care encounter Acute Altered mental status Acute Altered mental status Acute Anemia Acute Cirrhosis Acute Diabetes Acute Diarrhea Acute Encephalopathy Acute Hematemesis Acute Upper GI bleed Acute - ICD10 Problem Qualifiers (1) Palliative care encounter
[2017-01-30] MEDS: SPIRONOLACTONE 25 MG TAB PO SCH (17:02)
[2017-01-30] MEDS: ATORVASTATIN CALCIUM 40 MG TAB PO SCH (17:03)
[2017-01-31] MEDS: PATCH REMOVAL 1 EA PATCH TD SCH (01:19)
[2017-01-31 05:16] LABS: HEMATOCRIT 24.7 % (38.0-47.0); HEMOGLOBIN 8.1 g/dL (12.6-16.3); MEAN CELL HEMOGLOBIN 32.3 pg (27.9-34.1); MEAN CELL HEMOGLOBIN CONCENTR. 32.8 g/dL (32.4-36.7); MEAN CELL VOLUME 98.4 fL (81.5-99.8); RED BLOOD CELL COUNT 2.51 10^6/uL (4.18-5.33); RED CELL DISTRIBUTION WIDTH 14.9 % (11.5-15.2)
[2017-01-31 05:27] LABS: ALANINE AMINOTRANSFERASE 51 IU/L (9-52); ALBUMIN 2.2 g/dL (3.5-5.0); ALKALINE PHOSPHATASE 601 IU/L (38-126); ANION GAP 8 mEq/L (8-16); ASPARTATE AMINOTRANSFERASE 54 IU/L (14-46); BILIRUBIN,TOTAL 1.8 mg/dL (0.1-1.4); CALCIUM 7.9 mg/dL (8.5-10.4); CARBON DIOXIDE 21 mEq/l (22-31); CHLORIDE 109 mEq/L (97-110); CREATININE 0.8 mg/dL (0.6-1.0); GLOMERULAR FILTRATION RATE > 60; GLUCOSE 187 mg/dL (70-100); POTASSIUM 3.5 mEq/L (3.5-5.2); SODIUM 138 mEq/L (134-144); TOTAL PROTEIN 5.5 g/dL (6.3-8.2)
[2017-01-31] MEDS: INSULIN LISPRO 100 UNIT/ML SC SCH (08:18)
[2017-01-31] MEDS: LACTULOSE 20 GM/30 ML UDCUP PO SCH (08:18)
[2017-01-31] MEDS: FUROSEMIDE 20 MG/2 ML VIAL IVP SCH (08:18)
[2017-01-31] MEDS: SPIRONOLACTONE 25 MG TAB PO SCH (08:19)
[2017-01-31] MEDS: PANTOPRAZOLE SODIUM 40 MG TAB PO SCH (08:19)
[2017-01-31] MEDS: RIFAXIMIN 550 MG TAB PO SCH (08:19)
[2017-01-31] MEDS: FERROUS SULFATE 325 MG TAB PO SCH (08:19)
[2017-01-31] MEDS: LIDOCAINE 5% 1 EA PATCH TD SCH (08:28)
--- NOTE | 2017-01-31 10:20 | PDIAF ---
- Diagnosis Diagnosis: cirrhosis and encephalopathy Code Status: Limited Resuscitation - Medication Management Discharge Medications: Medications to Continue on Transfer Ferrous Sulfate [Ferrous Sulf 325 MG (*)] 325 mg PO DAILY 08/13/15 [Last Taken 01/26/17] Furosemide [Lasix 20 MG (*)] 20 mg PO DAILY #30 tab 02/25/16 [Last Taken ] Spironolactone [Aldactone 25 MG (*)] 25 mg PO DAILY #30 tab 02/25/16 [Last Taken 01/26/17] Simvastatin [Zocor] 80 mg PO DAILY18 05/31/16 [Last Taken 01/25/17] Pantoprazole Sodium [Protonix 40mg (*)] 40 mg PO BID #60 tab 07/08/16 [Last Taken 01/26/17] Losartan Potassium [Cozaar 50 mg (*)] 50 mg PO DAILY 11/24/16 [Last Taken ] Rifaximin [Xifaxan] 550 mg PO BID 11/24/16 [Last Taken 01/26/17] glipiZIDE [Glipizide] 5 mg PO BID 11/24/16 [Last Taken 01/26/17] Insulin Detemir [Levemir] 15 unit SQ HS 11/25/16 [Last Taken 01/25/17] Insulin Detemir [Levemir] 35 unit SQ DAILY 11/25/16 [Last Taken 01/26/17] traMADol [Ultram 50 mg (*)] 50 mg PO Q6 PRN 11/25/16 [Last Taken 01/26/17] Lactulose 20 gm PO BID 01/26/17 [Last Taken 01/26/17] Ondansetron HCl [Zofran] 4 - 8 mg PO Q8H PRN 01/26/17 [Last Taken 01/25/17] Discharge Medications: Refer to the Discharge Home Medication list for PRN reason. - Orders Services needed: Home Care, Registered Nurse, Physical Therapy, Occupational Therapy Home Care Face to Face: I certify that this patient was under my care and that I had the required [id number] encounter meeting the encounter requirements on the discharge day. My findings support the fact that the patient is homebound as defined in CMS Chapter 7 Medicare Benefits Manual 30.1.1, The condition of the patient is such that there exists a normal inability to leave home and consequently, leaving home would require a considerable and taxing effort. Diet Recommendation: sodium restricted Diet Texture: Regular Texture Diet - Follow Up Care Current Providers and Referrals: Patient,NotPresent [Unknown] - As per Instructions
[2017-01-31] MEDS: INSULIN GLARGINE 100 UNITS/ML SYRINGE SC SCH (10:35)
[2017-01-31 12:26] VITALS: BP 132/53; PULSE 98; RESP 14; TEMP 97.4; O2SAT 96
--- NOTE | 2017-01-31 16:16 | GDS ---
[f rep st] DISCHARGE SUMMARY DISCHARGE DIAGNOSES: Include: 1. Acute hepatic encephalopathy. 2. Cirrhosis. HISTORY OF PRESENT ILLNESS: A 71-year-old female, well known to the [facility] with cirrhosis, presenting with acute confusion. For details of patient's initial presentation, please see the history and phy sical dated 01/26/2017. CONSULTATIVE SERVICES: Include Palliative Care. PROCEDURES: None. HOSPITAL COURSE BY ISSUE: Acute hepatic encephalopathy. Reversible causes for the patient's acute encephalopathy were ruled out. The patient was treated with higher doses of lactulose and continued on her outpatient rifaximin. Patient took 72 hours to adequately clear, but was found to be alert and oriented on the day of disposition on the above medications. The patient will be discharged aga in on higher dose lactulose, continued rifaximin with outpatient followup with Gastroenterology for long-term management of her cirrhosis. GOALS OF CARE: The patient did express along with her family the wish to treat reversible causes of acute illness. Patient did respond appropriate to the outlying therapy. No changes were made in he r disposition status, she is returning home with her family with medical management of her cirrhosis . MEDICATIONS AT THE TIME OF DISPOSITION: Please reference the med rec printed on 01/31/2017. PENDING STUDIES: At the time of this dictation are none. FOLLOWUP APPOINTMENTS: Include with her outpatient primary care as well as Gastroenterology for molly g-term management of her cirrhosis. I spent greater than 30 minutes in the planning and coordination of this discharge. /[id number]/MODL
== END 2017-01-31 12:10 | disposition home health service (06) | DRG 442 ==
LOC: EDUNIT# → F2W 20:10
PROVIDERS: ADMIT Internal Medicine; ATTEND Internal Medicine
PROC: 30233N1 Transfusion of Nonautologous Red Blood Cells into Peripheral Vein, Percutaneous Approach (ICD-10-PCS; principal; 2017-01-30)
DX: K72.00 Acute and subacute hepatic failure without coma (principal); N17.9 Acute kidney failure, unspecified; D61.818 Other pancytopenia; K74.69 Other cirrhosis of liver; D50.9 Iron deficiency anemia, unspecified; E11.9 Type 2 diabetes mellitus without complications; E78.5 Hyperlipidemia, unspecified; I10 Essential (primary) hypertension; E87.5 Hyperkalemia; G89.29 Other chronic pain; M25.551 Pain in right hip; Z96.642 Presence of left artificial hip joint; M25.552 Pain in left hip; Z91.128 Patient's intentional underdosing of medication regimen for other reason; T47.3X6A Underdosing of saline and osmotic laxatives, initial encounter; Z79.4 Long term (current) use of insulin; Z87.19 Personal history of other diseases of the digestive system
CPT/HCPCS: 96374; 97116-GP; 97161-GP; 97166-GO; 97530-GP; 97535-GO; G8978-GP-CK; G8979-GP-CJ; G8987-GO-CJ; J0696; J1815; J1940; P9016; P9021

== ENCOUNTER → 2017-03-23 | Outpatient (CLI) | payer OTHER, MEDICAID | LOC: FIMAGING 07:59 | PROVIDERS: ATTEND Orthopaedic Surgery | DX: M80.08XA Age-related osteoporosis with current pathological fracture, vertebra(e), initial encounter for fracture (principal); M12.88 Other specific arthropathies, not elsewhere classified, other specified site ==

== ENCOUNTER 2017-04-18 15:10 | Inpatient (IN) | payer OTHER, MEDICAID ==
[2017-04-18] MEDS ORDERED: NS 500 ML IV ONE ×3 (15:43→22:10)
[2017-04-18 15:57] LABS: PLATELET COUNT 107 10^3/uL (150-400)
--- NOTE | 2017-04-18 15:57 | EDPHY ---
H & P Time Seen by Provider: 04/18/17 15:26 HPI/ROS: HPI Back pain, unable to walk. 71-year-old female by private vehicle with her family. This patient has a history of multiple level lumbar compression fractures and radiculopathy. She was to see spinal surgeon Dr. Gareth Chu today at 3:30 p.m.. She and her son tell me that she was unable to ambulate secondary to the pain and therefore her son brought her to the emergency department instead. She has chronic urinary incontinence. She denies any new loss of sensation or focal weakness in her lower extremities. She states that she is unable to walk because of her lower back pain. No abdominal pain. ROS: Constitutional: No fever, no chills. No weakness. Eyes: No discharge. No changes in vision. ENT: No sore throat. No nasal congestion or rhinorrhea. Respiratory: No cough. No shortness of breath. Cardiac: No chest pain, no palpitations. Gastrointestinal: No abdominal pain, no vomiting, no diarrhea. Genitourinary: No hematuria. No dysuria or increased frequency with urination. Musculoskeletal: As above. No neck pain. No myalgias or arthralgias. Skin: No rashes. Neurological: No headache. No focal weakness or altered sensation. Past medical history: As above. Advanced cryptogenic cirrhosis, hepatic encephalopathy, esophageal varices status post banding, portal hypertension, gastrointestinal bleeding, type 2 diabetes, chronic iron deficiency anemia. Social history: Here with family. Nonsmoker. No alcohol. Physical Exam: General Appearance: Alert, she appears uncomfortable. Obese habitus. This patient is responding to questions appropriately and in full sentences. This patient appears well-hydrated and well-nourished. Eyes: Pupils equal and round no pallor or injection. No lid edema, erythema or injection. Respiratory: There are no retractions, lungs are clear to auscultation with good air movement bilaterally. Cardiovascular: Regular rate and rhythm. No murmur. Gastrointestinal: Abdomen is distended with fluid wave. Abdomen is soft and nontender, no masses, bowel sounds normal. No focal tenderness at McBurney's point. No Boothe sign. Rectal exam: Normal tone, no gross blood. Brown stool. Neurological: Motor sensory function is grossly intact. Cranial nerves are normal. Skin: Warm and dry, no rashes. Musculoskeletal: Neck is supple and nontender. She has tenderness on palpation from approximately T10 through L5 in the midline. She also has tenderness on palpation over the bilateral sacroiliac joints. Extremities are symmetrical. All joints range without pain or impingement. Psychiatric: No agitation. No depression. Database: EKG: EKG time is 4:18 p.m.; EKG shows a narrow complex normal sinus rhythm with a ventricular rate of 94. Low voltage throughout. The ID, QRS, QT intervals are within normal limits. There are no ST-T wave changes indicative of ischemic or injury pattern. No evidence of right heart strain. Interpreted by me. Imaging: CT chest abdomen and pelvis without contrast: Multiple vertebral fractures and likely old rib fractures. Not an optimal study because of lack of contrast to evaluate for aortic dissection but no obvious dissection or aneurysm involving the aorta. Spleen is large. Please see radiologist's report for further details. Discussed with staff radiologist Dr. Kyle Spear. Procedures: Emergency department course: IV placed. She was placed on a vaudeville actor. Her vital signs have been reviewed. Her blood pressures are in the low 70s over 30s. She is not tachycardic. She is afebrile. She was transferred from room 24 to room 5. She was started on IV normal saline with 500 cc to be given over the next half an hour. Her mentation is baseline. She recently started oxycodone for pain medication. 4:30 p.m., the patient remains hypotensive. inside horticultural specialty grower shows a sinus rhythm with ventricular rate of 95, narrow complex. Initial metabolic panel shows a potassium of 6.3. EKG performed as noted above and reviewed by myself. Patient started on hyperkalemia protocol with IV insulin, dextrose, nebulized albuterol and calcium gluconate. CBC shows a hemoglobin of 6.3. Patient typed and screened. She will be transfused 2 units of PRBCs. Patient sent for CT imaging to evaluate for possible aortic dissection. 5:30 p.m., patient re-evaluated. Blood pressure currently 84/60. inside horticultural specialty grower shows a narrow complex sinus rhythm with ventricular rate of 94. 6:00 p.m., patient re-evaluated. Blood pressure currently 92/56. inside horticultural specialty grower shows a narrow complex sinus rhythm with ventricular rate of 93. Repeat potassium has been ordered. Patient given IV Protonix. I spoke with on-call hospitalist Dr. Aviva Galdamez. She accepts this patient for admission to the step-down unit. The patient's remaining emergency department course under my care has been uneventful. The patient was admitted in stable and improved condition. Differential Diagnosis: The differential diagnosis on this patient includes but is not limited to chronic back pain, history of compression fractures of the lumbar vertebra, hypotension. This represents a partial list of diagnoses considered. These considerations are based on history, physical exam, past history, reassessment and diagnostic testing. Smoking Status: Never smoked Constitutional: Initial Vital Signs Temperature (C) 36.8 C 04/18/17 15:57 Heart Rate 102 H 04/18/17 15:57 Respiratory Rate 20 04/18/17 15:57 Blood Pressure 97/43 L 04/18/17 15:57 O2 Sat (%) 96 04/18/17 15:57 O2 Delivery Mode Room Air Allergies/Adverse Reactions: insulin regular [Insulin Regular] Allergy (Verified 04/19/17 00:38) TONGUE NUMBNESS/TINGLING Penicillins Allergy (Verified 01/19/17 12:35) Rash Home Medications: Medication Instructions Recorded Ferrous Sulfate [Ferrous Sulf 325 325 mg PO DAILY 08/13/15 MG (*)] Furosemide [Lasix 20 MG (*)] 20 mg PO DAILY #30 tab 02/25/16 Spironolactone [Aldactone 25 MG 25 mg PO DAILY #30 tab 02/25/16 (*)] Pantoprazole Sodium [Protonix 40mg 40 mg PO BID #60 tab 07/08/16 (*)] Losartan Potassium [Cozaar 50 mg 25 mg PO DAILY 11/24/16 (*)] Rifaximin [Xifaxan] 550 mg PO BID 11/24/16 glipiZIDE [Glipizide] 5 mg PO BID 11/24/16 Insulin Detemir [Levemir] 35 unit SQ DAILY 11/25/16 traMADol [Ultram 50 mg (*)] 50 mg PO Q8 PRN 11/25/16 Lactulose 20 gm PO BID 01/26/17 Ondansetron HCl [Zofran] 4 - 8 mg PO Q8H PRN 01/26/17 Hydrocodone/Acetaminophen [[place] 1 - 2 tab PO Q4H PRN 04/18/17 5/325 (*)] Medical Decision Making Critical Care Time: I spent a total of 42 minutes of critical care time in obtaining history, performing a physical exam, bedside monitoring of interventions, collecting and interpreting tests and discussion with consultants but not including time spent performing procedures. - Data Points Laboratory Results: Laboratory Results 04/18/17 15:20 04/18/17 15:20 04/18/17 17:04 Patient ABO/Rh O POSITIVE Antibody Screen NEGATIVE Crossmatch IS Only See Detail Medications Given: Ferrous Sulfate (Ferrous Sulfate) 325 mg PO DAILY CONSTANTINO Stop: 10/16/17 08:59 Last Admin: 04/19/17 09:29 Dose: Not Given Glipizide (Glucotrol) 5 mg PO BIDMEAL CONSTANTINO Stop: 10/16/17 07:59 Last Admin: 04/19/17 16:37 Dose: Not Given Hydromorphone HCl (Dilaudid) 0.2 - 0.4 mg IVP Q2HRS PRN PRN Reason: Pain, Severe Unable to Take PO Stop: 04/28/17 22:05 Last Admin: 04/19/17 23:32 Dose: 0.2 mg Sodium Chloride (Ns) 1,000 mls @ 75 mls/hr IV CONT CONSTANTINO Stop: 10/15/17 22:14 Last Admin: 04/19/17 05:32 Dose: 1,000 mls Albumin Human (Flexbumin 25 % (Premix)) 100 mls @ 0 mls/hr IV Q6HRS CONSTANTINO PRN Reason: As Directed Stop: 10/16/17 00:00 Last Admin: 04/20/17 06:51 Dose: 100 mls Octreotide Acetate 500 mcg/ (Dextrose) 51 mls @ 5 mls/hr IV CONT CONSTANTINO Stop: 10/16/17 11:14 Last Admin: 04/20/17 03:17 Dose: 51 mls Insulin Glargine (Lantus Syringe) 35 units SC DAILY CONSTANTINO Stop: 10/16/17 08:59 Last Admin: 04/19/17 09:27 Dose: 35 units Insulin Human Lispro (Humalog Lispro) 2 - 10 unit SC TIDMEAL CONSTANTINO PRN Reason: Protocol Stop: 10/16/17 07:59 Last Admin: 04/19/17 17:23 Dose: 2 units Lactulose (Cephulac) 20 gm PO BID CONSTANTINO Stop: 10/16/17 08:59 Last Admin: 04/19/17 23:33 Dose: 20 gm Pantoprazole Sodium (Protonix) 40 mg PO BID CONSTANTINO Stop: 10/15/17 20:59 Last Admin: 04/19/17 23:35 Dose: 40 mg Rifaximin (Xifaxan) 550 mg PO BID CONSTANTINO PRN Reason: Protocol Stop: 05/18/17 20:59 Last Admin: 04/19/17 23:33 Dose: Not Given Discontinued Medications Hydrocodone Bitart/Acetaminophen ([place] 5/325) 1 - 2 tab PO Q4H PRN PRN Reason: Pain, Moderate Stop: 04/28/17 20:12 Last Admin: 04/18/17 22:06 Dose: 1 tab Albuterol (Proventil Neb) 12 ml IH EDNOW ONE Stop: 04/18/17 16:31 Last Admin: 04/18/17 17:40 Dose: 12 ml Calcium Gluconate (Calcium Gluconate) 1 gm IVP EDNOW ONE Stop: 04/18/17 16:31 Last Admin: 04/18/17 17:24 Dose: 1 gm Dextrose (Dextrose 50% Syringe) 25 gm IVP EDNOW ONE Stop: 04/18/17 16:31 Last Admin: 04/18/17 17:28 Dose: 25 gm Sodium Chloride (Ns) 500 mls @ 1,000 mls/hr IV EDNOW ONE PRN Reason: Protocol Stop: 04/18/17 16:12 Last Admin: 04/18/17 15:56 Dose: 500 mls Sodium Chloride (Ns) 500 mls @ 1,000 mls/hr IV EDNOW ONE PRN Reason: Protocol Stop: 04/18/17 17:02 Last Admin: 04/18/17 22:53 Dose: Not Given Sodium Bicarbonate 150 meq/ (Dextrose) 1,150 mls @ 0 mls/hr IV EDNOW ONE PRN Reason: As Directed Stop: 04/18/17 16:31 Last Admin: 04/18/17 22:53 Dose: Not Given Pantoprazole Sodium 80 mg/ (Sodium Chloride) 100 mls @ 10 mls/hr IV Q10H CONSTANTINO Stop: 10/15/17 17:59 Last Admin: 04/18/17 22:53 Dose: Not Given Pantoprazole Sodium 80 mg/ (Sodium Chloride) 100 mls @ 10 mls/hr IV EDNOW ONE Stop: 04/19/17 04:29 Last Admin: 04/18/17 18:46 Dose: 100 mls Sodium Chloride (Ns) 500 mls @ 0 mls/hr IV ONCE ONE PRN Reason: Wide Open Stop: 04/18/17 22:11 Last Admin: 04/18/17 22:51 Dose: 500 mls Albumin Human (Flexbumin 25 % (Premix)) 100 mls @ 0 mls/hr IV ONCE ONE PRN Reason: As Directed Stop: 04/19/17 08:48 Last Admin: 04/19/17 09:27 Dose: 100 mls Insulin Human Regular (Humulin R) 10 unit IVP EDNOW ONE Stop: 04/18/17 16:31 Last Admin: 04/18/17 17:37 Dose: 10 units Insulin Human Regular (Humulin R) 0 unit SC ACHS CONSTANTINO PRN Reason: Protocol Stop: 10/15/17 23:14 Last Admin: 04/19/17 07:39 Dose: Not Given Pantoprazole Sodium (Protonix) 40 mg IVP EDNOW ONE Stop: 04/18/17 17:51 Last Admin: 04/18/17 18:24 Dose: 40 mg Sodium Bicarbonate (Sodium Bicarbonate) 50 meq IVP EDNOW ONE Stop: 04/18/17 16:58 Last Admin: 04/18/17 17:40 Dose: 50 meq Sodium Polystyrene Sulfonate (Kayexalate) 30 gm PO EDNOW ONE Stop: 04/18/17 20:46 Last Admin: 04/18/17 21:11 Dose: 30 gm Departure - Departure Disposition: [facility] Acute Clinical Impression: Hypotension, Chronic back pain, Anemia, Hyperkalemia, Acidosis Condition: Fair
--- NOTE | 2017-04-18 16:19 | CPEKG ---
Heart Rate: 94 RR Interval: 638 P-R Interval: 152 QRSD Interval: 84 QT Interval: 360 QTC Interval: 451 P [place]: 60 QRS [place]: 16 T Wave [place]: 59 EKG Severity - BORDERLINE ECG - EKG Impression: SINUS RHYTHM EKG Impression: LOW VOLTAGE THROUGHOUT Electronically Signed By: Nikolai Zamora 18-Apr-2017 23:37:29
--- NOTE | 2017-04-18 16:19 | CPEKG ---
Heart Rate: 94 RR Interval: 638 P-R Interval: 152 QRSD Interval: 84 QT Interval: 360 QTC Interval: 451 P [place]: 60 QRS [place]: 16 T Wave [place]: 59 EKG Severity - BORDERLINE ECG - EKG Impression: SINUS RHYTHM EKG Impression: LOW VOLTAGE THROUGHOUT Electronically Signed By: Nikolai Zamora 18-Apr-2017 23:37:29
[2017-04-18] MEDS ORDERED: D50W 25 GM/50 ML SYR IVP ONE (16:30)
[2017-04-18] MEDS ORDERED: SODIUM BICARBONATE 150 MEQ in D5W 1,000 ML IV ONE (16:30)
[2017-04-18] MEDS ORDERED: ALBUTEROL 3 ML DEYVIAL IH ONE (16:30)
[2017-04-18] MEDS ORDERED: INSULIN REGULAR HUMAN 100 UNIT/ML IVP ONE (16:30)
[2017-04-18] MEDS ORDERED: CALCIUM GLUC 10% 1 GM/10 ML VIAL IVP ONE (16:30)
[2017-04-18] MEDS ORDERED: SODIUM BICARBONATE 50 MEQ/50 ML SYR ONE (16:35)
[2017-04-18] MEDS ORDERED: ALBUTEROL 3 ML DEYVIAL ONE (16:41)
[2017-04-18] MEDS ORDERED: SODIUM BICARBONATE 50 MEQ/50 ML SYR IVP ONE ×2 (16:56→16:57)
[2017-04-18] MEDS ORDERED: PANTOPRAZOLE SODIUM 40 MG VIAL IVP ONE (17:50)
[2017-04-18] MEDS ORDERED: PANTOPRAZOLE SODIUM 80 MG in NS 100 ML IV SCH (18:00)
[2017-04-18] MEDS ORDERED: PANTOPRAZOLE SODIUM 80 MG in NS 100 ML IV ONE (18:30)
[2017-04-18] MEDS ORDERED: traMADol 50 MG TAB PO PRN (20:13)
[2017-04-18] MEDS: HYDROCODONE/APAP 5/325 TAB PO PRN ×2 (20:33→22:06)
[2017-04-18] MEDS ORDERED: SODIUM POLY SULF 15 GM/60 ML BOTTLE PO ONE (20:45)
[2017-04-18] MEDS ORDERED: ACETAMINOPHEN 500 MG TAB PO PRN (22:06)
[2017-04-18] MEDS ORDERED: ONDANSETRON 4 MG/2 ML VIAL IVP PRN (22:06)
[2017-04-18] MEDS ORDERED: D50W 25 GM/50 ML SYR IVP PRN (22:08)
[2017-04-18] MEDS: HYDROmorphONE/DILAUDID 1 MG/ML INJ IVP PRN (22:34)
[2017-04-18] MEDS: ALBUMIN 25% 100 ML IV SCH (22:38)
[2017-04-18] MEDS: NS 1,000 ML IV SCH (22:51)
[2017-04-18] MEDS: RIFAXIMIN 550 MG TAB PO SCH (23:01)
[2017-04-18] MEDS: PANTOPRAZOLE SODIUM 40 MG TAB PO SCH (23:01)
[2017-04-18] MEDS ORDERED: INSULIN REGULAR HUMAN 100 UNIT/ML SC SCH (23:15)
--- NOTE | 2017-04-18 23:19 | GHP ---
[f rep st] HISTORY AND PHYSICAL DATE OF ADMISSION: 04/18/2017 CHIEF COMPLAINT: Back pain. HISTORY: The patient is a 71-year-old female with cryptogenic cirrhosis. Recently, she has been christina gnosed with a lumbar compression fracture with radiculopathy and has been seeing a spine surgeon. Th ere was a plan for kyphoplasty and possible some additional spine procedures. Back pain worsened to the point where she could no longer walk, and she presented to the emergency room. She has been havi ng this back pain for approximately 6 months but has been getting progressively worse. She otherwise has minimal complaints, she does recognize that she has some lower extremity edema but does not seem too concerned by it. She denies decreased oral intake. She denies bright red blood pe r rectum or hematemesis. She has had a little nausea. She has had no confusion. PAST MEDICAL HISTORY: 1. Cryptogenic cirrhosis. 2. Hepatic encephalopathy. 3. Esophageal varices status post banding. 4. Iron deficiency anemia. 5. Portal hypertension, gastropexy. 6. Diabetes, type 2. 7. History of duodenal ulcer. MEDICATIONS: Please see computer record for full detailed list. ALLERGIES: Regular insulin and penicillin. SOCIAL HISTORY: No smoking. No alcohol. She lives alone. Cor status DNR. REVIEW OF SYSTEMS: Complete review of systems obtained. Review of systems is negative regarding con stitutional, HEENT, GI, pulmonary, cardiovascular, , hematology, skin, muscular, endocrine, psych, except for positives and negatives as in HPI. FAMILY HISTORY: Reviewed, noncontributory to presenting complaint. PHYSICAL EXAMINATION: GENERAL: Well-developed well-nourished female, in no acute distress. VITAL S IGNS: Temperature 36.8, pulse of 90, blood pressure 84/60, improved to 113/49 after IV fluids in the emergency room, saturating 100% on room air. EYES: Normal conjunctivae. Pupils react to light. E NT: Normal ears and nose. Hearing intact. Normal lips and teeth. Oropharynx moist. NECK: Trache a midline. No thyromegaly. CHEST: Normal respiratory effort. LUNGS: Clear to auscultation bilate rally. CARDIOVASCULAR: Regular rhythm. No murmur. EXTREMITIES: Three plus lower extremity edema. ABDOMEN: Soft, nontender. No hepatosplenomegaly. SKIN: Warm, dry, intact, without rash. MUSCUL OSKELETAL: No cyanosis or clubbing. Strength 5/5 upper and lower extremities. NEUROLOGIC: Cranial nerves intact. Normal sensation to light touch. PSYCH: Alert and oriented x3. Normal affect. No rmal judgment. Normal memory. RECTAL: Shows a heme-positive brown stool. LABORATORY: White count 6.19, hematocrit 20.6, MCV is 104, platelets 107. Sodium 130, potassium 6.3 , chloride 108, bicarb 13, BUN 68, creatinine 2.6, glucose 278. EKG viewed by me. My personal interpretation is normal sinus rhythm, no ST-T wave changes. CT scan of the chest shows an old compression fracture, distal thickening of esophagus, rib fractures of unde termined age. CT scan of the abdomen and pelvis is pending. This case was discussed extensively with Dr. Zamora regarding ER treatment, including hyperkalem ia. ASSESSMENT AND PLAN: 1. Lumbar compression fracture. She was seeing Spine as an outpatient with a plan to proceed with s urgical procedure, I suspect a kyphoplasty. At this point, she is a poor surgical candidate until e is medically more stabilized. 2. Acute renal failure. I suspect she is intravascularly dry, despite her edema. Will start her on some IV albumin. CT scan of the abdomen and pelvis was done in the ER. Report is still pending. T his will help us determine how much ascites she may have and whether or not there is any evidence of renal obstruction. 3. Hypotension. This is responsive to IV fluid boluses, which we will continue as needed. 4. Cryptogenic cirrhosis. I suspect this is actually due to nonalcoholic steatohepatitis and her ob esity. 5. Anemia. She has a heme-positive brown stool in the emergency room. I suspect she is having a sl ow ooze from her portal hypertensive gastropathy. Will continue on a proton pump inhibitor. I do no t believe she is bleeding brisk enough for a varicocele bleed, but she needs to be monitored closely. She will be transfused as needed. She already got some blood in the emergency room. She will like ly need consultation with Gastroenterology for endoscopy prior to discharge when she is more stable m edically. 6. Hyperkalemia. I will hold her spironolactone and losartan. She received insulin, D50, IV calciu m, IV bicarbonate, and Kayexalate in the emergency room. Recheck of her potassium is improving. We will continue to follow. 7. Diabetes. Will continue insulin. 8. Hepatic encephalopathy. Continue lactulose and rifaximin. COR STATUS: DNR. ADMISSION STATUS: 1. Will admit to inpatient as she is quite ill, medically complex. Anticipate greater than 2 midnig hts. 2. DVT prophylaxis. Her risk is low, and given the concern for bleeding, will hold off on pharmacol ogic prophylaxis at this time. /[id number]/MODL
[2017-04-19] MEDS ORDERED: PARAMETERS MISC PRN
[2017-04-19] MEDS ORDERED: D10W 250 ML PRN HYPOGLYCEMIA IV
[2017-04-19] MEDS: HYDROmorphONE/DILAUDID 1 MG/ML INJ IVP PRN ×4 (01:02→23:32)
[2017-04-19] MEDS: ALBUMIN 25% 100 ML IV SCH ×4 (05:19→23:33)
[2017-04-19] MEDS: NS 1,000 ML IV SCH (05:32)
[2017-04-19 07:07] LABS: INR 1.3 (0.83-1.16); PROTIME(PATIENT) 16.2 SEC (12.0-15.0)
[2017-04-19 07:56] LABS: PLATELET COUNT 63 10^3/uL (150-400)
[2017-04-19] MEDS ORDERED: ALTEPLASE 2 MG VIAL IVP PRN (08:47)
[2017-04-19] MEDS ORDERED: ALBUMIN 25% 100 ML IV ONE (08:47)
[2017-04-19] MEDS ORDERED: glipiZIDE 5 MG TAB PO SCH (09:00)
[2017-04-19] MEDS: INSULIN GLARGINE 100 UNITS/ML SYRINGE SC SCH (09:27)
[2017-04-19] MEDS: INSULIN LISPRO 100 UNIT/1 ML VIAL STANDARD SC SCH ×3 (09:27→17:23)
[2017-04-19] MEDS: glipiZIDE 5 MG TAB PO SCH ×2 (09:28→16:37)
[2017-04-19] MEDS: LACTULOSE 20 GM/30 ML UDCUP PO SCH ×2 (09:29→23:33)
[2017-04-19] MEDS: PANTOPRAZOLE SODIUM 40 MG TAB PO SCH ×2 (09:29→23:35)
[2017-04-19] MEDS: FERROUS SULFATE 325 MG TAB PO SCH (09:29)
[2017-04-19] MEDS: RIFAXIMIN 550 MG TAB PO SCH ×2 (09:29→23:33)
--- NOTE | 2017-04-19 09:41 | GCON ---
[f rep st] [employer] CONSULTATION REASON FOR ADMISSION: Hypotension, back pain. HISTORY OF PRESENT ILLNESS: The patient is a 71-year-old female with extensive past medical history of diabetes, anemia, hepatic encephalopathy, secondary to her cryptogenic cirrhosis, esophag eal varices, portal hypertension, and a duodenal ulcer. She presented to the emergency room with com plaints of severe low back pain. She had recently been diagnosed with lumbar compression fractures a nd has been followed by a spine surgeon. In the emergency room, she was found to be in acute renal f ailure and hypotensive. She was also significantly anemic and was admitted to the intensive care [facility]. Currently, she is markedly uncomfortable and complaining of severe back pain. She is do not resu scitate. PAST MEDICAL HISTORY: As above. ALLERGIES: Regular insulin and penicillin. SOCIAL HISTORY: No history of tobacco use. No history of alcohol use. She lives alone. Again, she is a do not resuscitate. CURRENT MEDICATIONS: Include Tylenol, albumin, ferrous sulfate, Glucotrol, Dilaudid, Lantus, Humalog , lactulose, Zofran, Protonix, rifaximin, Ultram. PHYSICAL EXAMINATION: VITAL SIGNS: Blood pressure 102/38, pulse 107, respirations 13, temperature i s 36.7, oxygen saturation 100% on 6 L. GENERAL: She is an obese 71-year-old female who is in moderate pain. HEENT: Eyes: PERRLA, EOMI. Throat shows no erythema or tonsillar hypertrophy. NECK: Supple. There is no cervical adenopathy. HEART: Regular rate and rhythm with a 2/6 systolic murmur at the left sternal border without radiation. LUNGS: Diminished breath sounds, but no wheez e. ABDOMEN: Soft, nontender. Bowel sounds are diminished. EXTREMITIES: Show 1+ lower extremity e david. LABORATORY/IMAGING: White count 6.1, hemoglobin of 6.3, hematocrit of 20, MCV 104, platelet count is 107. INR 1.3. Sodium 138, potassium 6.2, chloride 111, CO2 is 14, BUN is 64, creatinine 2.1, gluco se 169. AST is 53. Stool for occult blood is positive. CT scan of the chest shows multiple compression fractures, thickening of the distal esophagus, otherw ise clear. CT scan of the abdomen and pelvis shows no new abnormalities. No evidence of urinary tract calculus. Underlying cirrhosis and stable cholelithiasis. IMPRESSION: 1. Hypotension. Etiology of which is unclear, though hypovolemia would appear to be most likely. N o evidence of sepsis at this time. 2. Severe anemia, likely secondary to esophageal varices and upper gastrointestinal bleed. 3. Hyperkalemia. 4. History of cryptogenic cirrhosis. 5. Acute renal failure. Again, this is likely prerenal. 6. Lumbar compression fractures. 7. Hepatic encephalopathy. RECOMMENDATIONS: 1. Will transfuse appropriately. 2. Place a PICC line. 3. Aggressive IV hydration with crystalloid and colloid. 4. Continue the majority of her home medications. 5. Consider Gastroenterology consult. 6. Adequate pain control. 7. Patient is do not resuscitate. 8. Consider palliative consult. /[id number]/MODL
--- NOTE | 2017-04-19 11:06 | ASMTCMCOM ---
CM Note CM Note Notes: Chart reviewed. Discussed in rounds. Tranferred to ICU status for hypotension. Needs TBD. CM to follow. Date Signed: 04/19/2017 11:06 AM Electronically Signed By:Joyce Macedo RN
--- NOTE | 2017-04-19 11:13 | HOSPPROG ---
Hospitalist Progress Note Assessment/Plan: DIAGNOSES: -acute hypotension with ongoing GI bleed, organ failure -suspect bleeding from portal gastropathy or varices -acute renal failure, suspect hepatic renal syndrome -acute hepatic encephalopathy, probably triggered by GI bleed -post hemorrhagic anemia -acute metabolic acidosis -hyperkalemia -elevated alkaline phosphatase acutely, uncertain significance or etiology -history of cryptogenic cirrhosis with encephalopathy, portal gastropathy and banded varices; there is also history of duodenal ulcer -diabetes type 2 currently reasonably controlled I reviewed the case in detail with Dr. Juan José Schumacher. At this point the patient is critically ill and I think she has a very high risk of poor outcome here and further complications. PLANS: -emergent transfusion of further packed red blood cells -I have ordered a octreotide drip -she is currently receiving albumin boluses and saline -will need to follow hemoglobin hematocrit very closely -I was called Gastroenterology and Nephrology consults at this time -transfer to ICU status -a PICC line will be placed within the hour apparently -will try and keep her FX min going and possibly add lactulose but at this time I do not think she will be able to swallow anything safely -no anticoagulant for DVT prophylaxis due to her acute hemorrhagic state -SCDs -proton pump inhibitors SUBJECTIVE: Patient currently severely encephalopathic and non communicative OBJECTIVE Vitals reviewed: Currently hypotensive and with the tachycardia, no fever respirations okay Engineering Technical Analyst, my review: Sinus tachycardia Exam: Awake but the entirely unresponsive not following any commands, no tremor or signs of anxiety or agitation Neurologic: She is moving her extremities and her pupils are normal, no signs specifically of weakness or cranial nerve abnormalities but her neurologic exam is impaired by inability to participate in exam skin warm dry color ok resps not labored lungs clear BSs heart regular tachycardic abd soft nondistended nontender, bowel sounds present limbs warm, no edema iv site ok I reviewed her CT scans of chest and abdomen and my interpretation images: No ascites. There is diffuse edema of subcutaneous and mesenteric fat No evidence of inflammatory or infectious process specifically The radiologist notice thickening of the distal esophagus wall which could be due to contraction or potentially due to varices Objective: Vital Signs Temp Pulse Resp BP Pulse Ox 36.7 C 107 H 13 102/38 L 100 04/19/17 07:34 04/19/17 07:34 04/19/17 07:34 04/19/17 07:34 04/19/17 07:34 Laboratory Results 04/19/17 07:35 04/19/17 06:30 04/18/17 04/19/17 04/20/17 06:59 06:59 06:59 Intake Total 2960 Balance 2960 PT 16.2 SEC (12.0-15.0) H 04/19/17 06:30 INR 1.30 (0.83-1.16) H 04/19/17 06:30 - Time Spent With Patient Time Spent with Patient: greater than 35 minutes Time Spent with Patient: Greater than 35 minutes spent on this patients care, greater than 50% of time spent counseling, educating, and coordinating care regarding the above mentioned plan. ICD10 Worksheet Patient Problems: Problems Problem Status Onset Acidosis Acute Anemia Acute Chronic back pain Acute Hyperkalemia Acute Hypotension Acute Altered mental status Acute Altered mental status Acute Cirrhosis Acute Diabetes Acute Diarrhea Acute Encephalopathy Acute Hematemesis Acute Hepatic encephalopathy Acute Palliative care encounter Acute Upper GI bleed Acute
--- NOTE | 2017-04-19 12:39 | PDMN ---
Medical Necessity Medical necessity: Pt meets IP criteria per MD; est los >2 mn for eval/tx of acute renal failure, hypotension, hepatic encephalopathy, cryptogenic cirrhosis , hyperkalemia; hx recent lumbar compression fx, anemia, esophageal varices s/p banding; per H&P 04/18/17
--- NOTE | 2017-04-19 13:50 | PDANEPAE ---
ANE History of Present Illness 71 year old (critically ill) patient with history of hepatic encephalopathy and esophageal varices (previous banding) presents with anemia and likely GI bleed. Plan for EGD w/ likely banding. Hgb this morning 7.3. Patient receiving 3rd unit PRBC since admission at time of evaluation in ICU. Consent obtained from patient's son ([place]). Patient is a DNR, but DNR suspended for procedure and clara-procedural time. ANE Past Medical History - Cardiovascular History Hx Hypertension: No Hx Arrhythmias: No Hx Chest Pain: No Hx Coronary Artery / Peripheral Vascular Disease: No Hx CHF / Valvular Disease: No Hx Palpitations: No - Pulmonary History Hx COPD: No Hx Asthma/Reactive Airway Disease: No Hx Recent Upper Respiratory Infection: No Hx Oxygen in Use at Home: No Hx Sleep Apnea: No - Endocrine History Hx Diabetes: Yes Hypothyroid: No Hyperthyroid: No Obesity: yes - Renal History Hx Renal Disorders: No - Liver History Hx Hepatic Disorders: Yes - GI History Hx Gastrointestinal Disorders: Yes Gastrointestinal History Comment: GI bleed - Chronic Pain History Chronic Pain: No ANE Review of Systems Review of systems is: negative Review of Systems: - Exercise capacity Exercise capacity: <4 METS ANE Patient History - Allergies Allergies/Adverse Reactions: insulin regular [Insulin Regular] Allergy (Verified 04/19/17 00:38) TONGUE NUMBNESS/TINGLING Penicillins Allergy (Verified 01/19/17 12:35) Rash - Home Medications Home medications: home medication list seen and reviewed Home Medications: Ferrous Sulfate [Ferrous Sulf 325 MG (*)] 325 mg PO DAILY 08/13/15 [Last Taken 04/18/17] Losartan Potassium [Cozaar 50 mg (*)] 25 mg PO DAILY 11/24/16 [Last Taken ] Rifaximin [Xifaxan] 550 mg PO BID 11/24/16 [Last Taken 04/18/17 09:00] glipiZIDE [Glipizide] 5 mg PO BID 11/24/16 [Last Taken 04/18/17 09:00] Insulin Detemir [Levemir] 35 unit SQ DAILY 11/25/16 [Last Taken 04/18/17] traMADol [Ultram 50 mg (*)] 50 mg PO Q8 PRN 11/25/16 [Last Taken 04/18/17] Lactulose 20 gm PO BID 01/26/17 [Last Taken 04/18/17 09:00] Ondansetron HCl [Zofran] 4 - 8 mg PO Q8H PRN 01/26/17 [Last Taken 04/18/17 09:00 ] Hydrocodone/Acetaminophen [[place] 5/325 (*)] 1 - 2 tab PO Q4H PRN 04/18/17 [Last Taken 04/18/17 12:00] - NPO status NPO Status: no food or drink >8 hours - Smoking Hx Smoking Status: Never smoked Marijuana use: No ANE Labs/Vital Signs - Labs Result Diagrams: 04/19/17 07:35 04/19/17 06:30 - Vital Signs Blood Pressure: 119/44 Heart Rate: 98 Respiratory Rate: 14 O2 Sat (%): 95 Height: 152.4 cm Weight: 83.915 kg ANE Physical Exam - Airway Neck exam: short neck Mallampati Score: Unable to assesss - ASA Status ASA Status: IV ANE Anesthesia Plan Anesthesia Plan: general endotracheal anesthesia Total IV Anesthesia: No
[2017-04-19] MEDS ORDERED: PROPOFOL 200 MG/20 ML VIAL ONE (13:57)
[2017-04-19] MEDS ORDERED: ROCURONIUM 50 MG/5 ML VIAL ONE (14:01)
[2017-04-19] MEDS ORDERED: PHENYLEPHRINE HCL 100 MCG/ML SYR ONE (14:17)
--- NOTE | 2017-04-19 14:27 | SOAPPROG ---
SOARABELLA Progress Note Assessment/Plan: Assessment:Plan: full consult to follow 71 with cirrhosis and melena/post hemorrhagic anemia prev EGD with portal HTN gastropathy, DU's and trace varices but was in June 2016. If May 2016 she did have one mid esoph varix needs emergent EGD with anesthesia 04/19/17 14:26 04/19/17 14:28 Objective: Vital Signs Temp Pulse Resp BP Pulse Ox 36.2 C 100 15 110/39 L 100 04/19/17 12:00 04/19/17 14:00 04/19/17 14:00 04/19/17 14:00 04/19/17 14:00 Laboratory Results 04/19/17 07:35 04/19/17 06:30 04/18/17 04/19/17 04/20/17 05:59 05:59 05:59 Intake Total 2960 Balance 2960 PT 16.2 SEC (12.0-15.0) H 04/19/17 06:30 INR 1.30 (0.83-1.16) H 04/19/17 06:30 ICD10 Worksheet Patient Problems: Problems Problem Status Onset Acidosis Acute Anemia Acute Chronic back pain Acute Hyperkalemia Acute Hypotension Acute Altered mental status Acute Altered mental status Acute Cirrhosis Acute Diabetes Acute Diarrhea Acute Encephalopathy Acute Hematemesis Acute Hepatic encephalopathy Acute Palliative care encounter Acute Upper GI bleed Acute
[2017-04-19] MEDS ORDERED: fentaNYL 100 MCG/2 ML INJ IVP PRN (14:57)
[2017-04-19] MEDS ORDERED: LR 500 ML IV PRN (14:57)
[2017-04-19] MEDS ORDERED: NALOXONE HCL 0.4 MG/ML INJ IVP PRN (14:57)
[2017-04-19] MEDS ORDERED: SUGAMMADEX SODIUM 200 MG/2 ML VIAL IVP ONE ×2 (14:58)
--- NOTE | 2017-04-19 15:03 | POSTOPPROG ---
Post Op Note Date of Operation: 04/19/17 Surgeon: Mick Palacio Anesthesia: GET(General Endotracheal) Pre-op Diagnosis: ugi bleed eval for varices ulcers Post-op Diagnosis: esoph varices s/p band, portal HTNive gastropathy, no ulcers Indication: melena, post hemorrhagic anemia, cirrhosis Procedure: egd and banding Findings: variceds portal HTnive gastropathy Inf/Abcess present in the surg proc area at time of surgery?: No EBL: Minimal (few ml) Total fluids administered: 300ml NS Complications: none immediate
--- NOTE | 2017-04-19 16:04 | GIREPORT ---
[facility] Surgical Services - Endoscopy Department Patient Name: Fariba Molina Procedure Date: 04/19/2017 1:46 PM Patient Type: Inpatient Attending MD/ ER Physician: Ashli Barreto Procedure: Upper GI endoscopy Indications: Acute post hemorrhagic anemia, Melena Providers: Lio Palacio MD Medicines: General Anesthesia Complications: No immediate complications. Estimated blood loss: Minimal. Description of Procedure: After obtaining informed consent, the endoscope was passed under direct vision. Throughout the procedure, the patient's blood pressure, pulse, and oxygen saturations were monitored continuously. The Endoscope was intro duced through the mouth, and advanced to the second part of duodenum. The [facility] er GI endoscopy was accomplished without difficulty. The patient tolerated th e procedure well. Findings: Grade II varices were found in the middle third of the esophagus and in the lower third of the esophagus. Three bands were successfully placed with incomplete eradication of varices. There was no bleeding during, and at the end, of the procedure. Severe portal hypertensive gastropathy was found in the entire examined stomach. The examined duodenum was normal. The exam was otherwise without abnormality. Estimated Blood Loss: Estimated blood loss was minimal. Post Op Diagnosis: - No significnat amount of blood notes, small area's of heme in portal HTNive gastropathy. her bleed was 1-2 days ago. - Grade II esophageal varices. Incompletely eradicated. Banded. - NO gastric varices. - Portal hypertensive gastropathy, with oozing in few area's - Normal examined duodenum. - The examination was otherwise normal. - No specimens collected. Recommendation: - NPO. Once her encephalopathy resolves, start clears. - Return patient to ICU for ongoing care. - Use Protonix (pantoprazole) 40 mg IV BID. Can finish any IV continuou s PPI. Change to PO when not encephalopathic - Administer an IV bolus of 50 micrograms of octreotide followed by an infusion of 50 micrograms per hour for 3 days. - Check hemoglobin q 8 hours for one day. PRBC's if HB < 7 - Repeat upper endoscopy in 4 weeks for retreatment. - Thank you for allowing me to help in your patient's care. Do not hesi cook to call with any questions. Attending Participation: I personally performed the entire procedure. Hakeem Vaca M.D Lio Palacio MD 04/19/2017 4:03:49 PM This report has been signed electronicallyMathew MD Hakeem Number of Addenda: 0 Note Initiated On: 04/19/2017 1:46 PM [email or web address]
--- NOTE | 2017-04-19 16:04 | GIREPORT ---
[facility] Surgical Services - Endoscopy Department Patient Name: Fariba Molina Procedure Date: 04/19/2017 1:46 PM Patient Type: Inpatient Attending MD/ ER Physician: Ashli Barreto Procedure: Upper GI endoscopy Indications: Acute post hemorrhagic anemia, Melena Providers: Lio Palacio MD Medicines: General Anesthesia Complications: No immediate complications. Estimated blood loss: Minimal. Description of Procedure: After obtaining informed consent, the endoscope was passed under direct vision. Throughout the procedure, the patient's blood pressure, pulse, and oxygen saturations were monitored continuously. The Endoscope was intro duced through the mouth, and advanced to the second part of duodenum. The [facility] er GI endoscopy was accomplished without difficulty. The patient tolerated th e procedure well. Findings: Grade II varices were found in the middle third of the esophagus and in the lower third of the esophagus. Three bands were successfully placed with incomplete eradication of varices. There was no bleeding during, and at the end, of the procedure. Severe portal hypertensive gastropathy was found in the entire examined stomach. The examined duodenum was normal. The exam was otherwise without abnormality. Estimated Blood Loss: Estimated blood loss was minimal. Post Op Diagnosis: - No significnat amount of blood notes, small area's of heme in portal HTNive gastropathy. her bleed was 1-2 days ago. - Grade II esophageal varices. Incompletely eradicated. Banded. - NO gastric varices. - Portal hypertensive gastropathy, with oozing in few area's - Normal examined duodenum. - The examination was otherwise normal. - No specimens collected. Recommendation: - NPO. Once her encephalopathy resolves, start clears. - Return patient to ICU for ongoing care. - Use Protonix (pantoprazole) 40 mg IV BID. Can finish any IV continuou s PPI. Change to PO when not encephalopathic - Administer an IV bolus of 50 micrograms of octreotide followed by an infusion of 50 micrograms per hour for 3 days. - Check hemoglobin q 8 hours for one day. PRBC's if HB < 7 - Repeat upper endoscopy in 4 weeks for retreatment. - Thank you for allowing me to help in your patient's care. Do not hesi cook to call with any questions. Attending Participation: I personally performed the entire procedure. Hakeem Vaca M.D Lio Palacio MD 04/19/2017 4:03:49 PM This report has been signed electronicallyMathew MD Hakeem Number of Addenda: 0 Note Initiated On: 04/19/2017 1:46 PM [email or web address]
--- NOTE | 2017-04-19 16:04 | GIREPORT ---
[facility] - Endoscopy Department Patient Name: Fariba Molina Procedure Date: 04/19/2017 1:46 PM Patient Type: Inpatient Attending MD/ ER Physician: Ashli Barreto Procedure: Upper GI endoscopy Indications: Acute post hemorrhagic anemia, Melena Providers: Lio Palacio MD Medicines: General Anesthesia Complications: No immediate complications. Estimated blood loss: Minimal. Description of Procedure: After obtaining informed consent, the endoscope was passed under direct vision. Throughout the procedure, the patient's blood pressure, pulse, and oxygen saturations were monitored continuously. The Endoscope was intro duced through the mouth, and advanced to the second part of duodenum. The [facility] GI endoscopy was accomplished without difficulty. The patient tolerated th e procedure well. Findings: Grade II varices were found in the middle third of the esophagus and in the lower third of the esophagus. Three bands were successfully placed with incomplete eradication of varices. There was no bleeding during, and at the end, of the procedure. Severe portal hypertensive gastropathy was found in the entire examined stomach. The examined duodenum was normal. The exam was otherwise without abnormality. Estimated Blood Loss: Estimated blood loss was minimal. Post Op Diagnosis: - No significnat amount of blood notes, small area's of heme in portal HTNive gastropathy. her bleed was 1-2 days ago. - Grade II esophageal varices. Incompletely eradicated. Banded. - NO gastric varices. - Portal hypertensive gastropathy, with oozing in few area's - Normal examined duodenum. - The examination was otherwise normal. - No specimens collected. Recommendation: - NPO. Once her encephalopathy resolves, start clears. - Return patient to ICU for ongoing care. - Use Protonix (pantoprazole) 40 mg IV BID. Can finish any IV continuou s PPI. Change to PO when not encephalopathic - Administer an IV bolus of 50 micrograms of octreotide followed by an infusion of 50 micrograms per hour for 3 days. - Check hemoglobin q 8 hours for one day. PRBC's if HB < 7 - Repeat upper endoscopy in 4 weeks for retreatment. - Thank you for allowing me to help in your patient's care. Do not hesi cook to call with any questions. Attending Participation: I personally performed the entire procedure. Hakeem Vaca M.D Lio Palacio MD 04/19/2017 4:03:49 PM This report has been signed electronicallyMathew MD Hakeem Number of Addenda: 0 Note Initiated On: 04/19/2017 1:46 PM [email or web address]
--- NOTE | 2017-04-19 16:06 | POSTANESTH ---
Post Anesthetic Evaluation Cardiovascular Status: Similar to Pre-Op Cond Respiratory Status: Similar to Pre-op Cond. Level of Consciousness/Mental Status: Other, See Comment (Follows commands, but not overtly alert. Consistent with patient's pre-op condition.) Pain Control: Adequate, Prn Tx Ordered Nausea/Vomiting Control: Adequate, Prn Tx Ordered Complications Possibly Related to Anesthesia: None Noted
[2017-04-19] MEDS: OCTREOTIDE ACETATE 500 MCG in D5W 50 ML IV SCH (16:54)
--- NOTE | 2017-04-19 17:49 | GCON ---
[f rep st] CONSULTATION DATE OF CONSULTATION: 04/19/2017 REQUESTED BY: Dr. Jimenez. INDICATION FOR CONSULTATION: Post hemorrhagic anemia, melena, in a 71-year-old lady with known cirrh osis. HISTORY OF PRESENT ILLNESS: Much of this is obtained from the EHR from our office as well as the [facility] chart. Patient is encephalopathic. Some of the information is obtained from the family. 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 She has had GI bleeds in the past. May 2016, my partner thought there was a mid-esophageal varix that was bleeding. When I scoped her in June 2016, it was more duodenal ulcerations and portal hyperte nsive gastropathy. She has remained on PPI therapy as an outpatient and is on both Xifaxan and lactu lose for hepatic encephalopathy. She is not on any primary prophylaxis, i.e. beta arsalan or carvedi lol for her trace varices that were noted back in June. She was in her usual state of health unti l 2 days ago. She was scheduled to have a lumbar compression fracture and radiculopathy with a spine surgeon, but her son noticed that she was not walking as well and having a little bit more confusion , so he canceled the appointment. She continued to be more confused and passing melenic stools and w as brought to the hospital for evaluation. She has significant back pain. She was admitted with dec reased hemoglobin and hematocrit and elevated BUN and creatinine, consistent with upper GI bleed. I was called to help evaluate and treat in that regard. PAST SURGICAL HISTORY: Hernia repair, hip surgery, and cholecystectomy. Patient had colonoscopy in 2013. PAST MEDICAL HISTORY: Cirrhosis, history of hepatic encephalopathy, history of peptic ulcer disease, portal hypertensive gastropathy and esophageal varices, iron deficiency anemia (thought to be relate d to a slow blood loss from her portal hypertensive gastropathy), and type 2 diabetes. MEDICATIONS: At home included iron, Glucotrol, lactulose, Xifaxan, Aldactone, pantoprazole, and losa rtan. In house, her medications are Tylenol p.r.n., albumin, iron sulfate 325 mg daily, glipizide 5 mg b.i.d., Dilaudid p.r.n., Lantus 35 units subcu daily, Humalog 2-10 units subcu t.i.d. with meals, Cephulac 20 g b.i.d., Narcan p.r.n., octreotide drip, Zofran 4 mg IV q.4 p.r.n., pantoprazole 40 mg b .i.d., Xifaxan 550 mg p.o. b.i.d., tramadol (Ultram) 50 mg p.o. q.8 p.r.n. ALLERGIES: Insulin and penicillin. FAMILY HISTORY: No liver disease in the family. No colon cancer in the family. SOCIAL HISTORY: Does not drink. She does not smoke. She drinks a cup of coffee a day. REVIEW OF SYSTEMS: Unobtainable from the patient as she is encephalopathic currently. PHYSICAL EXAMINATION: CONSTITUTIONAL: Overweight female sitting in the ICU bed with some confusion, but in no acute distress. Her son and daughter in the room. VITAL SIGNS: Blood pressure is 110/39 , pulse is 100, respirations are 15. She is 100% on 6 L nasal cannula. HEENT: Eyes mildly icteric. EOMI. Mouth with no lesions. NECK: Supple. I do not appreciate any JVD. BACK: She does have s ome spine tenderness. No CVA tenderness. LUNGS: Decreased breath sounds bases. I do not appreciat e any rales or rhonchi. CARDIAC: S1, S2. Regular rate and rhythm. She is at 96 on my exam. I do not appreciate rubs or gallops. ABDOMEN: Somewhat distended. Bowel sounds are present. Abdomen is soft. No significant tenderness. Difficult to assess for hepatosplenomegaly. NEUROLOGIC: She is encephalopathic. EXTREMITIES: 3+ edema. SKIN: No rashes. LABORATORY DATA: From today, sodium 138, potassium 6.2, chloride 111, bicarb 14, BUN 64, creatinine 2.1, calcium 7.6, total bili 2.7, conjugated bilirubin 1.1, unconjugated 1.6, AST 53, ALT 43, alk naresh s 348. WBC 2.67, hemoglobin 7.3, hematocrit 23.2, platelet count 63; that is after transfusions. Ye day at 320, hemoglobin 6.3, hematocrit 20.9. From today, ProTime 16.2, INR 1.3. Stool occult bl ood positive. She has melena. Alpha fetoprotein from today marker is 1.5. Vitamin B12 from today i s 851. Some old values: On January 31, 2017, hemoglobin was 8.1, hematocrit 24.7. From January 31, BUN is 15 , creatinine 0.8. From January 30, ProTime is 17.1 and INR is 1.41. She has a chest CT scan from yesterday that revealed no evidence of thoracic aneurysm. Multiple comp ression fractures, thickening of the distal esophagus, possibly from esophagitis. Underlying mass is felt to be less likely. CT scan of the abdomen and pelvis without contrast: No evidence of urinary tract calculus. No new abnormality identified within the abdomen or pelvis. Stable Bartholin cyst to the left labia. Stable mild splenomegaly, underlying cirrhosis, and cholelithiasis, stable in yelitza earance. They make no mention of ascites either in a positive or negative fashion. A pelvis CT perf ormed January 27, 2017: No definite etiology for the patient's pain. Some old procedure reports: April 16, 2014, a colonoscopy and EGD with biopsy. Antral ulcer clean based with no stigmata of bleed at present, status post biopsy. Normal esophagus. Gastric mucosal biopsy is acute and chronic inflammation. Amino stain for H pylori organism was positive; negative f or malignancies. Normal duodenum, status post biopsy. Duodenal biopsies were negative for celiac di sease. Normal colon with only hemorrhoids noted. EGD performed on June 01, 2016, revealed a mide sophageal varix with a sign of likely recent bleeding, treated with bands x2. Diffuse portal hyperte nsive gastropathy that was oozing. An EGD performed July 06, 2016, trace varix in the esophagus, which was not a bleeding lesion. Previous area of endoscopic variceal banding was noted, small gastr ic ulcerations in the antrum, portal hypertensive gastropathy, and large superficial duodenal ulcerat ions, which are almost certainly the source of gastrointestinal blood loss. No visible vessel or oth er stigmata for treatment. Go back down to the EGD from March 2014 back by [facility] going back on given the pathology for that. This is the computer retrieved for me okay. Gastric mucosal biopsy sh owed acute and chronic inflammation. Immuno stain for H pylori organism was positive negative for ma lignancies. Duodenal biopsies were negative for celiac disease. ASSESSMENT: 1. Upper gastrointestinal bleed with melena, post-hemorrhagic anemia, elevated BUN:creatinine ratio. 2. 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 3. Diabetes. 4. Hepatic encephalopathy. 5. Iron deficiency anemia. 6. Type 2 diabetes. RECOMMENDATIONS: 1. Continue octreotide and Protonix. 2. Emergent EGD with anesthesia. 3. Serial H and H's and transfuse PRBCs as per hospitalists. 4. Continue Xifaxan and lactulose when she becomes more alert, to treat her encephalopathy, which is likely related to blood digestion from her upper GI bleed. 5. Follow kidney functions. Suspect it will improve with hydration. Likely prerenal azotemia. 6. Electrolyte abnormalities as per Hospitalists. 7. Further recommendations to follow results of above and clinical course. Given the patient's multiple medical issues, body habitus, underlying cirrhosis, this would be a high -risk procedure. Patient will have general anesthesia for risk of upper GI bleed. Thank you very much for allowing me to participate in this patient's health care. Please do not hesi cook to call me with any questions. /[id number]/MODL
[2017-04-20] MEDS: OCTREOTIDE ACETATE 500 MCG in D5W 50 ML IV SCH ×2 (03:17→16:47)
[2017-04-20] MEDS: ALBUMIN 25% 100 ML IV SCH (06:51)
[2017-04-20] MEDS: NS 1,000 ML IV SCH (07:14)
[2017-04-20] MEDS: INSULIN LISPRO 100 UNIT/1 ML VIAL STANDARD SC SCH ×3 (07:31→18:51)
[2017-04-20] MEDS: glipiZIDE 5 MG TAB PO SCH (07:44)
--- NOTE | 2017-04-20 08:54 | PDINTPN ---
Wafer Abrading Machine Tender Progress Note Assessment/Plan: Assessment/plan: * Anemia * Shock-resolved * Acute respiratory failure-likely secondary to fluid overload. Patient markedly tachypneic -will give Lasix * Esophageal varices-1 banded during the endoscopy. No active bleeding seen * Cryptogenic cirrhosis * Hepatic encephalopathy * Acute renal failure-creatinine improved * Chronic pain * Portal hypertension Subjective: Complains of pain and breathlessness. Objective: Vital Signs Temp Pulse Resp BP Pulse Ox 37.3 C 95 14 122/52 H 98 04/20/17 00:00 04/20/17 06:00 04/20/17 06:00 04/20/17 06:00 04/20/17 06:00 Laboratory Results 04/20/17 06:35 04/20/17 06:35 04/19/17 04/20/17 04/21/17 05:59 05:59 05:59 Intake Total 2960 1180 1000.6 Output Total 300 Balance 2960 880 1000.6 PT 16.2 SEC (12.0-15.0) H 04/19/17 06:30 INR 1.30 (0.83-1.16) H 04/19/17 06:30 Physical Exam - Physical Exam General Appearance: moderate distress, No alert EENT: PERRL/EOMI Neck: non-tender, full range of motion, supple, normal inspection Respiratory: respiratory distress, rales (Few), No wheezing Cardiac/Chest: normal peripheral pulses, regular rate, rhythm Peripheral Pulses: 2+: carotid (R), carotid (L), femoral (R), femoral (L), dorsalis-pedis (R), dorsalis-pedis (L) Abdomen: soft Pelvic Exam: deferred Rectal: deferred Skin: normal color, warm/dry ICD10 Worksheet Patient Problems: Problems Problem Status Onset Acidosis Acute Anemia Acute Chronic back pain Acute Hyperkalemia Acute Hypotension Acute Altered mental status Acute Altered mental status Acute Cirrhosis Acute Diabetes Acute Diarrhea Acute Encephalopathy Acute Hematemesis Acute Hepatic encephalopathy Acute Palliative care encounter Acute Upper GI bleed Acute
[2017-04-20] MEDS ORDERED: FUROSEMIDE 40 MG/4 ML VIAL IVP ONE (08:55)
[2017-04-20] MEDS: LACTULOSE 20 GM/30 ML UDCUP PO SCH (09:28)
[2017-04-20] MEDS: PANTOPRAZOLE SODIUM 40 MG TAB PO SCH (09:28)
[2017-04-20] MEDS: RIFAXIMIN 550 MG TAB PO SCH (09:28)
[2017-04-20] MEDS: FERROUS SULFATE 325 MG TAB PO SCH (09:28)
[2017-04-20] MEDS ORDERED: SODIUM BICARBONATE 50 MEQ/50 ML SYR ONE (09:46)
[2017-04-20] MEDS ORDERED: SODIUM BICARBONATE 50 MEQ/50 ML SYR IV ONE (10:00)
[2017-04-20] MEDS: HYDROmorphONE/DILAUDID 1 MG/ML INJ IVP PRN ×4 (10:06→20:00)
[2017-04-20] MEDS: INSULIN GLARGINE 100 UNITS/ML SYRINGE SC SCH (12:03)
--- NOTE | 2017-04-20 12:42 | PDINTPN ---
Bitumen Plant Operator Progress Note Assessment/Plan: Assessment/plan: * Anemia * Shock-resolved * Acute respiratory failure-likely secondary to fluid overload. Patient markedly tachypneic -will give Lasix * Esophageal varices-1 banded during the endoscopy. No active bleeding seen * Cryptogenic cirrhosis * Hepatic encephalopathy * Acute renal failure-creatinine improved * Chronic pain * Portal hypertension I had a long discussion with the patient's family including her son regarding her very poor prognosis. It is their wish that she be made comfortable and that all support be withdrawn. We will abide by their wishes. Objective: Vital Signs Temp Pulse Resp BP Pulse Ox 36.5 C 109 H 18 121/47 H 95 04/20/17 08:00 04/20/17 12:00 04/20/17 12:00 04/20/17 12:00 04/20/17 12:00 Laboratory Results 04/20/17 06:35 04/20/17 06:35 04/19/17 04/20/17 04/21/17 05:59 05:59 05:59 Intake Total 2960 1180 1000.6 Output Total 300 Balance 2960 880 1000.6 PT 16.2 SEC (12.0-15.0) H 04/19/17 06:30 INR 1.30 (0.83-1.16) H 04/19/17 06:30 ICD10 Worksheet Patient Problems: Problems Problem Status Onset Acidosis Acute Anemia Acute Chronic back pain Acute Hyperkalemia Acute Hypotension Acute Altered mental status Acute Altered mental status Acute Cirrhosis Acute Diabetes Acute Diarrhea Acute Encephalopathy Acute Hematemesis Acute Hepatic encephalopathy Acute Palliative care encounter Acute Upper GI bleed Acute
[2017-04-20] MEDS ORDERED: LORazepam 2 MG/ML INJ IVP PRN (12:43)
[2017-04-20] MEDS ORDERED: SCOPOLAMINE HYDROBROMIDE 1 MG/3 DAYS PATCH TD PRN (12:43)
--- NOTE | 2017-04-20 14:31 | ASMTCMCOM ---
CM Note CM Note Notes: Patient has been made comfort care measures only. Grazing Aide spoke to family regardin poor prognosis. To transfer from ICU to med surg.mortar mixer providing support to family. CM to follow. Date Signed: 04/20/2017 02:31 PM Electronically Signed By:Joyce Macedo RN
--- NOTE | 2017-04-20 14:31 | ASMTCMCOM ---
CM Note CM Note Notes: Patient has been made comfort care measures only. Credit Representative spoke to family regardin poor prognosis. To transfer from ICU to med surg.sales and marketing executive providing support to family. CM to follow. Date Signed: 04/20/2017 02:31 PM Electronically Signed By:Joyce Macedo RN
--- NOTE | 2017-04-20 14:31 | ASMTCMCOM ---
CM Note CM Note Notes: Patient has been made comfort care measures only. Instrumentation And Controls Technician spoke to family regardin poor prognosis. To transfer from ICU to med surg.paper cone drying machine operator providing support to family. CM to follow. Date Signed: 04/20/2017 02:31 PM Electronically Signed By:Joyce Macedo RN
--- NOTE | 2017-04-20 15:51 | HOSPPROG ---
Hospitalist Progress Note Assessment/Plan: 71 y/o female new to my care 04/20 with history of cryptogenic cirrhosis and encephalopathy, portal gastropathy and banded varices presents with: -acute hypotension with ongoing GI bleed, organ failure -suspect bleeding from portal gastropathy or varices -acute renal failure, suspect hepatic renal syndrome -acute hepatic encephalopathy with hyperammonemia , probably triggered by GI bleed -post hemorrhagic anemia -acute metabolic acidosis -hyperkalemia -elevated alkaline phosphatase acutely, uncertain significance or etiology -diabetes type 2 currently reasonably controlled PLANS: -I discussed the case with Dr. Schumacher who has spoken to the family who plans to withdrawal care and institute comfort measures. Prognosis is poor Subjective: pt is unresponsive Objective: Vital Signs Temp Pulse Resp BP Pulse Ox 36.5 C 109 H 18 121/47 H 95 04/20/17 08:00 04/20/17 12:00 04/20/17 12:00 04/20/17 12:00 04/20/17 12:00 Laboratory Results 04/20/17 06:35 04/20/17 06:35 04/19/17 04/20/17 04/21/17 05:59 05:59 05:59 Intake Total 2960 1180 1000.6 Output Total 300 Balance 2960 880 1000.6 PT 16.2 SEC (12.0-15.0) H 04/19/17 06:30 INR 1.30 (0.83-1.16) H 04/19/17 06:30 - Physical Exam Constitutional: no apparent distress, appears nourished, not in pain, chronically ill appearing Cardiovascular: regular rate and rhythym, no murmur, rub, or gallop Respiratory: no respiratory distress, no rales or rhonchi, clear to auscultation Neurologic: No AAOx3, No facial droop ICD10 Worksheet Patient Problems: Problems Problem Status Onset Anemia Acute Encephalopathy Acute Diabetes Acute Cirrhosis Acute Altered mental status Acute Hepatic encephalopathy Acute Hematemesis Acute Upper GI bleed Acute Diarrhea Acute Altered mental status Acute Palliative care encounter Acute Hypotension Acute Chronic back pain Acute Hyperkalemia Acute Acidosis Acute
--- NOTE | 2017-04-20 16:21 | SOAPPROG ---
SOAP Progress Note Assessment/Plan: Assessment:Plan: full consult to follow 71 with cirrhosis and melena/post hemorrhagic anemia prev EGD with portal HTN gastropathy, DU's and trace varices but was in June 2016. If May 2016 she did have one mid esoph varix needs emergent EGD with anesthesia 04/19/17 14:26 04/19/17 14:28 04/20/17 16:17 I am not convinced this is end of life event, her BP and oxygen are fine, her Hb is stable, she is encephalopathic but that is not necessarily an end of life event My old attending during fellowship (Dr. Juan José Valdez co-author of the Hepatology textbook Philippe) always stated "encephalopathy doesn't kill pt's, brain edema and herniation kill pt's" her ph is strikingly low ay 7.1 and her WBC has dropped which all could be c/w infection. She certainly could have the beginnings of a severe sepsis which she prob wont survive. I think this will be clear in the next 24 - 48 hours. However, I am not yet ready to withdraw care and think giving her some abx is a reasonable choice. I had a long discussion with family about her quality of life at home and her back pain. They state she was living a happy life and the pain didn't make her life intolerable. I also discussed with Dr. Schumacher 1) UGI bleed - s/p banding of varices, HB up, BUN down, restart octreotide drip and PPI IV once daily 2) Encephalopathy - from her bleed digesting blood in GI tract and likely from infection. Will not treat this with either Xifaxan nor Lactulose at present. If she turns around, we can treat then. 3) ID - start ceftriaxone 1 gram daily 4) level of care - back to treatment for now. if she declines rapidly will re- assess for withdrawal of care. No pressors, No CPR, No intubation Subjective: CC- UGI bleed from varices, esld, HE pt in stage 3-4 encephalopathy, family in room thinking she will , which she may Objective: Vital Signs Temp Pulse Resp BP Pulse Ox 36.5 C 109 H 18 121/47 H 95 04/20/17 08:00 04/20/17 12:00 04/20/17 12:00 04/20/17 12:00 04/20/17 12:00 Laboratory Results 04/20/17 06:35 04/20/17 06:35 04/19/17 04/20/17 04/21/17 05:59 05:59 05:59 Intake Total 2960 1180 1000.6 Output Total 300 Balance 2960 880 1000.6 PT 16.2 SEC (12.0-15.0) H 04/19/17 06:30 INR 1.30 (0.83-1.16) H 04/19/17 06:30 Coarse breath sound anteriorly +BS, soft , tender no rebound S1S2, tachy not alert, she is encephalopathic Laboratory Tests 04/18/17 04/19/17 04/19/17 15:20 06:30 07:35 Hgb 7.3 L Hct 23.2 L VBG pH BUN 68 H 64 H Creatinine 2.6 H 2.1 H 04/19/17 04/19/17 04/20/17 17:00 21:20 05:30 Hgb 8.4 L 9.4 L 8.8 L Hct 25.9 L 28.3 L 27.8 L VBG pH BUN Creatinine 04/20/17 04/20/17 04/20/17 06:35 06:35 09:10 Hgb 9.6 L Hct 29.7 L VBG pH 7.16 L* BUN 59 H Creatinine 1.8 H ICD10 Worksheet Patient Problems: Problems Problem Status Onset Acidosis Acute Anemia Acute Chronic back pain Acute Hyperkalemia Acute Hypotension Acute Altered mental status Acute Altered mental status Acute Cirrhosis Acute Diabetes Acute Diarrhea Acute Encephalopathy Acute Hematemesis Acute Hepatic encephalopathy Acute Palliative care encounter Acute Upper GI bleed Acute
[2017-04-20] MEDS ORDERED: D10W 250 ML PRN HYPOGLYCEMIA IV (16:26)
[2017-04-20] MEDS ORDERED: NS 1,000 ML IV SCH (16:30)
[2017-04-20] MEDS ORDERED: PANTOPRAZOLE SODIUM 40 MG in NS 100 ML IV SCH (16:30)
[2017-04-20] MEDS ORDERED: HYDROmorphONE/DILAUDID 1 MG/ML INJ IVP PRN (22:45)
[2017-04-20] MEDS ORDERED: HYDROmorphONE/DILAUDID 2 MG/ML INJ ONE (22:48)
[2017-04-20] MEDS: HYDROmorphONE/DILAUDID 2 MG/ML INJ IVP PRN (23:06)
[2017-04-21] MEDS: HYDROmorphONE/DILAUDID 2 MG/ML INJ IVP PRN (01:05)
[2017-04-21] MEDS ORDERED: HYDROmorphONE/DILAUDID 1 MG/ML INJ IVP PRN (01:30)
[2017-04-21] MEDS: OCTREOTIDE ACETATE 500 MCG in D5W 50 ML IV SCH (03:59)
--- NOTE | 2017-04-21 08:32 | PDINTPN ---
Relocation Associate Progress Note Assessment/Plan: Assessment/plan: * Anemia * Shock-resolved * Acute respiratory failure-likely secondary to fluid overload. Patient markedly tachypneic -will give Lasix * Esophageal varices-1 banded during the endoscopy. No active bleeding seen * Cryptogenic cirrhosis * Hepatic encephalopathy * Acute renal failure-creatinine improved * Chronic pain * Portal hypertension I have had a 2nd long discussion with the patient's family, including the son, concerning the patient and her poor prognosis. After contemplating throughout the night, he wishes to reinstate comfort care measures and withdrawal further support. I agree with his decision. Subjective: Coma Objective: Vital Signs Temp Pulse Resp BP Pulse Ox 36.8 C 108 H 17 117/33 L 92 04/20/17 20:00 04/21/17 06:00 04/21/17 06:00 04/21/17 06:00 04/21/17 06:00 Laboratory Results 04/20/17 06:35 04/20/17 06:35 04/20/17 04/21/17 04/22/17 05:59 05:59 05:59 Intake Total 1180 2501.7 Output Total 300 Balance 880 2501.7 PT 16.2 SEC (12.0-15.0) H 04/19/17 06:30 INR 1.30 (0.83-1.16) H 04/19/17 06:30 Physical Exam - Physical Exam General Appearance: other (Coma), No alert EENT: PERRL/EOMI Neck: non-tender Respiratory: accessory muscle use Cardiac/Chest: normal peripheral pulses, regular rate, rhythm, tachycardia Abdomen: soft, No normal bowel sounds Pelvic Exam: deferred Rectal: deferred Skin: normal color, warm/dry Neuro/Psych: No alert ICD10 Worksheet Patient Problems: Problems Problem Status Onset Acidosis Acute Anemia Acute Chronic back pain Acute Hyperkalemia Acute Hypotension Acute Altered mental status Acute Altered mental status Acute Cirrhosis Acute Diabetes Acute Diarrhea Acute Encephalopathy Acute Hematemesis Acute Hepatic encephalopathy Acute Palliative care encounter Acute Upper GI bleed Acute
[2017-04-21] MEDS ORDERED: LORazepam 2 MG/ML INJ IVP PRN (08:34)
[2017-04-21] MEDS ORDERED: INSULIN GLARGINE 100 UNITS/ML SYRINGE SC SCH (09:00)
[2017-04-21] MEDS ORDERED: PANTOPRAZOLE SODIUM 40 MG VIAL IVP SCH (09:00)
[2017-04-21 09:08] VITALS: BP 115/44; PULSE 109; RESP 14; TEMP 98.5; O2SAT 94
--- NOTE | 2017-04-21 10:54 | HOSPPROG ---
Hospitalist Progress Note Assessment/Plan: 71 y/o female new to my care 04/20 with history of cryptogenic cirrhosis and encephalopathy, portal gastropathy and banded varices presents with: -acute hypotension with ongoing GI bleed, organ failure -suspect bleeding from portal gastropathy or varices -acute renal failure, suspect hepatic renal syndrome -acute hepatic encephalopathy with hyperammonemia , probably triggered by GI bleed -post hemorrhagic anemia -acute metabolic acidosis -hyperkalemia -elevated alkaline phosphatase acutely, uncertain significance or etiology -diabetes type 2 currently reasonably controlled PLANS: -cont comfort care Subjective: unarousable Objective: Vital Signs Temp Pulse Resp BP Pulse Ox 36.9 C 109 H 14 115/44 L 94 04/21/17 08:00 04/21/17 08:00 04/21/17 08:00 04/21/17 08:00 04/21/17 08:00 Laboratory Results 04/20/17 06:35 04/20/17 06:35 04/20/17 04/21/17 04/22/17 05:59 05:59 05:59 Intake Total 1180 2501.7 Output Total 300 Balance 880 2501.7 PT 16.2 SEC (12.0-15.0) H 04/19/17 06:30 INR 1.30 (0.83-1.16) H 04/19/17 06:30 - Physical Exam Constitutional: no apparent distress, chronically ill appearing Cardiovascular: regular rate and rhythym, no murmur, rub, or gallop Respiratory: no respiratory distress, no rales or rhonchi, clear to auscultation Neurologic: other (aaox0 unarousable) ICD10 Worksheet Patient Problems: Problems Problem Status Onset Anemia Acute Encephalopathy Acute Diabetes Acute Cirrhosis Acute Altered mental status Acute Hepatic encephalopathy Acute Hematemesis Acute Upper GI bleed Acute Diarrhea Acute Altered mental status Acute Palliative care encounter Acute Hypotension Acute Chronic back pain Acute Hyperkalemia Acute Acidosis Acute
--- NOTE | 2017-04-21 12:45 | SOAPPROG ---
SOAP Progress Note Assessment/Plan: Assessment: Cryptogenic cirrhosiswith end stage liver failure, portal HTN, PSE, recent EVB( resolved). Patient's family/hospitalist and Binder Stripper Machine have had another care conference and placed patient again on comfort care per family's wishes. Plan: Will sign off care today. Please call me if I can be of assistance in the future. Braulio Franks MD 04/21/17 12:41 Objective: Vital Signs Temp Pulse Resp BP Pulse Ox 36.9 C 109 H 14 115/44 L 94 04/21/17 08:00 04/21/17 08:00 04/21/17 08:00 04/21/17 08:00 04/21/17 08:00 Laboratory Results 04/20/17 06:35 04/20/17 06:35 04/20/17 04/21/17 04/22/17 05:59 05:59 05:59 Intake Total 1180 2501.7 Output Total 300 Balance 880 2501.7 PT 16.2 SEC (12.0-15.0) H 04/19/17 06:30 INR 1.30 (0.83-1.16) H 04/19/17 06:30 ICD10 Worksheet Patient Problems: Problems Problem Status Onset Acidosis Acute Anemia Acute Chronic back pain Acute Hyperkalemia Acute Hypotension Acute Altered mental status Acute Altered mental status Acute Cirrhosis Acute Diabetes Acute Diarrhea Acute Encephalopathy Acute Hematemesis Acute Hepatic encephalopathy Acute Palliative care encounter Acute Upper GI bleed Acute
[2017-04-21] MEDS: INSULIN LISPRO 100 UNIT/1 ML VIAL STANDARD SC SCH (17:06)
--- NOTE | 2017-04-22 09:40 | GDS ---
[f rep st] DISCHARGE SUMMARY SUMMARY DATE OF : 04/21/2017. DIAGNOSES: 1. Cryptogenic cirrhosis. 2. Acute hepatic encephalopathy. 3. Upper gastrointestinal bleed due to portal hypertensive gastropathy and esophageal variceal bleed ing. 4. Post-hemorrhagic anemia. 5. Metabolic acidosis. 6. Hyperkalemia. 7. Hepatorenal syndrome. 8. Type 2 diabetes mellitus. CONSULTANTS: [facility] of the [facility], Pulmonary Critical Care. HOSPITAL COURSE BY PROBLEM: Cryptogenic cirrhosis and anemia: [facility] complaining of back pain, where she was found have a lumbar compression frac ture. It seemed that she was a poor surgical candidate, given her multiple medical problems as detai led in this report. On presentation, the patient was in renal failure and hypotensive. She was take n for EGD on hospital day #1, where she was noted to have portal hypertensive gastropathy and evidenc e for bleeding. There were no gastric varices. Throughout the patient's stay, she did, however, req uire 4 units of packed red blood cells. The patient was treated in the ICU where she became obtunded and unarousable. An ammonia level done on 04/20/2017 was elevated at 136. A care conference was conducted with Dr. Schumacher, where the family decided to provide comfort care. The patient subsequently on 04/21/2017. /[id number]/MODL
--- NOTE | 2017-04-22 09:40 | GDS ---
[f rep st] DISCHARGE SUMMARY SUMMARY DATE OF : 04/21/2017. DIAGNOSES: 1. Cryptogenic cirrhosis. 2. Acute hepatic encephalopathy. 3. Upper gastrointestinal bleed due to portal hypertensive gastropathy and esophageal variceal bleed ing. 4. Post-hemorrhagic anemia. 5. Metabolic acidosis. 6. Hyperkalemia. 7. Hepatorenal syndrome. 8. Type 2 diabetes mellitus. CONSULTANTS: [facility] of the [facility], Pulmonary Critical Care. HOSPITAL COURSE BY PROBLEM: Cryptogenic cirrhosis and anemia: The patient initially presented to [facility] on 04/[facility]/2017 complaining of back pain, where she was found have a lumbar compression frac ture. It seemed that she was a poor surgical candidate, given her multiple medical problems as detai led in this report. On presentation, the patient was in renal failure and hypotensive. She was take n for EGD on hospital day #1, where she was noted to have portal hypertensive gastropathy and evidenc e for bleeding. There were no gastric varices. Throughout the patient's stay, she did, however, req uire 4 units of packed red blood cells. The patient was treated in the ICU where she became obtunded and unarousable. An ammonia level done on 04/20/2017 was elevated at 136. A care conference was conducted with Dr. Schumacher, where the family decided to provide comfort care. The patient subsequently on 04/21/2017. /[id number]/MODL
--- NOTE | 2017-04-22 09:40 | GDS ---
[f rep st] DISCHARGE SUMMARY SUMMARY DATE OF : 04/21/2017. DIAGNOSES: 1. Cryptogenic cirrhosis. 2. Acute hepatic encephalopathy. 3. Upper gastrointestinal bleed due to portal hypertensive gastropathy and esophageal variceal bleed ing. 4. Post-hemorrhagic anemia. 5. Metabolic acidosis. 6. Hyperkalemia. 7. Hepatorenal syndrome. 8. Type 2 diabetes mellitus. CONSULTANTS: [facility] of the [facility], Pulmonary Critical Care. HOSPITAL COURSE BY PROBLEM: Cryptogenic cirrhosis and anemia: [facility] complaining of back pain, where she was found have a lumbar compression frac ture. It seemed that she was a poor surgical candidate, given her multiple medical problems as detai led in this report. On presentation, the patient was in renal failure and hypotensive. She was take n for EGD on hospital day #1, where she was noted to have portal hypertensive gastropathy and evidenc e for bleeding. There were no gastric varices. Throughout the patient's stay, she did, however, req uire 4 units of packed red blood cells. The patient was treated in the ICU where she became obtunded and unarousable. An ammonia level done on 04/20/2017 was elevated at 136. A care conference was conducted with Dr. Schumacher, where the family decided to provide comfort care. The patient subsequently on 04/21/2017. /[id number]/MODL
--- NOTE | 2017-04-22 16:49 | ASDISCHSUM ---
Discharge Information Plan Status: Medically Cleared to Leave:04/21/2017 Discharge Date:04/21/2017 05:15 PM CM D/C Disposition: ADT D/C Disposition: Projected Discharge Date:04/21/2017 12:00 AM Transportation at D/C: Discharge Delay Reason: Follow-Up Date:04/21/2017 12:00 AM Discharge Slot: Final Diagnosis:Cryptogenic cirrhosis and anemia Placement Information Patient Contact Information Contact Name:SOLEDAD Relationship:Angel Address: Work Phone: City:[employer] Alternate Phone: [facility]/[employer] Code:[place] Email: Financial Information Financial Class: Primary Plan Desc:MEDICARE IP PART B ONLY Primary Plan Number:[id number] Secondary Plan Desc:MED[place]ID [place] Secondary Plan Number:[id number] Assessment Information LACE LACE Length of stay for Answers: 1 day current admission Acuity / Level of Care Answers: Was the patient admitted to hospital via the emergency department? Yes: Comorbidities - select Answers: Moderate or severe liver all that apply disease or renal disease Emergency dept visits in Answers: 2 last 6 months Score: 10 Date Signed: 04/19/2017 11:02 AM Electronically Signed By:Joyce Macedo RN [facility] CM Progress Note CM Note CM Note Notes: Chart reviewed. Discussed in rounds. Tranferred to ICU status for hypotension. Needs TBD. CM to follow. Date Signed: 04/19/2017 11:06 AM Electronically Signed By:Joyce Macedo RN [facility] CM Progress Note CM Note CM Note Notes: Patient has been made comfort care measures only. Canned Food Reconditioning Inspector spoke to family regardin poor prognosis. To transfer from ICU to med surg.historic interpreter providing support to family. CM to follow. Date Signed: 04/20/2017 02:31 PM Electronically Signed By:Joyce Macedo RN Intervention Information
--- NOTE | 2017-04-22 16:49 | ASDISCHSUM ---
Discharge Information Plan Status: Medically Cleared to Leave:04/21/2017 Discharge Date:04/21/2017 05:15 PM CM D/C Disposition: ADT D/C Disposition: Projected Discharge Date:04/21/2017 12:00 AM Transportation at D/C: Discharge Delay Reason: Follow-Up Date:04/21/2017 12:00 AM Discharge Slot: Final Diagnosis:Cryptogenic cirrhosis and anemia Placement Information Patient Contact Information Contact Name:SOLEDAD Relationship:Angel Address: Work Phone: City:[place] Alternate Phone: [facility]/[employer] Code:[place] Email: Financial Information Financial Class: Primary Plan Desc:MEDICARE IP PART B ONLY Primary Plan Number:[id number] Secondary Plan Desc:MED[place] Secondary Plan Number:[id number] Assessment Information LACE LACE Length of stay for Answers: 1 day current admission Acuity / Level of Care Answers: Was the patient admitted to hospital via the emergency department? Yes: Comorbidities - select Answers: Moderate or severe liver all that apply disease or renal disease Emergency dept visits in Answers: 2 last 6 months Score: 10 Date Signed: 04/19/2017 11:02 AM Electronically Signed By:Joyce Macedo RN [facility] CM Progress Note CM Note CM Note Notes: Chart reviewed. Discussed in rounds. Tranferred to ICU status for hypotension. Needs TBD. CM to follow. Date Signed: 04/19/2017 11:06 AM Electronically Signed By:Joyce Macedo RN [facility] CM Progress Note CM Note CM Note Notes: Patient has been made comfort care measures only. Cnc Mill Set Up Operator spoke to family regardin poor prognosis. To transfer from ICU to med surg.full time staff interpreter providing support to family. CM to follow. Date Signed: 04/20/2017 02:31 PM Electronically Signed By:Joyce Macedo RN Intervention Information
--- NOTE | 2017-04-22 16:49 | ASDISCHSUM ---
Discharge Information Plan Status: Medically Cleared to Leave:04/21/2017 Discharge Date:04/21/2017 05:15 PM CM D/C Disposition: ADT D/C Disposition: Projected Discharge Date:04/21/2017 12:00 AM Transportation at D/C: Discharge Delay Reason: Follow-Up Date:04/21/2017 12:00 AM Discharge Slot: Final Diagnosis:Cryptogenic cirrhosis and anemia Placement Information Patient Contact Information Contact Name:SOLEDAD Relationship:Angel Address: Work Phone: City:[employer] Alternate Phone: [facility]/[employer] Code:[place] Email: Financial Information Financial Class: Primary Plan Desc:MEDICARE IP PART B ONLY Primary Plan Number:[id number] Secondary Plan Desc:MEDICAID [place] Secondary Plan Number:[id number] Assessment Information LACE LACE Length of stay for Answers: 1 day current admission Acuity / Level of Care Answers: Was the patient admitted to hospital via the emergency department? Yes: Comorbidities - select Answers: Moderate or severe liver all that apply disease or renal disease Emergency dept visits in Answers: 2 last 6 months Score: 10 Date Signed: 04/19/2017 11:02 AM Electronically Signed By:Joyce Macedo RN [facility] CM Progress Note CM Note CM Note Notes: Chart reviewed. Discussed in rounds. Tranferred to ICU status for hypotension. Needs TBD. CM to follow. Date Signed: 04/19/2017 11:06 AM Electronically Signed By:Joyce Macedo RN [facility] CM Progress Note CM Note CM Note Notes: Patient has been made comfort care measures only. Rig Mechanic spoke to family regardin poor prognosis. To transfer from ICU to med surg.teasel gig operator providing support to family. CM to follow. Date Signed: 04/20/2017 02:31 PM Electronically Signed By:Joyce Macedo RN Intervention Information
== END 2017-04-21 17:15 | disposition expired | DRG 432 ==
LOC: EDUNIT# → F2N 22:10
PROVIDERS: ADMIT Internal Medicine; ATTEND Family Medicine
PROC: 30233N1 Transfusion of Nonautologous Red Blood Cells into Peripheral Vein, Percutaneous Approach (ICD-10-PCS; 2017-04-18)
PROC: 02HV33Z Insertion of Infusion Device into Superior Vena Cava, Percutaneous Approach (ICD-10-PCS; 2017-04-19)
PROC: 06L38CZ Occlusion of Esophageal Vein with Extraluminal Device, Via Natural or Artificial Opening Endoscopic (ICD-10-PCS; principal; 2017-04-19 13:45)
CPT/HCPCS: 82607-90; 82947-QW; 96365; C1751; J0171; J0610; J0696; J1170; J1815; J1940; J2060; J2353; J2370; J2704; P9016; P9047